=== PATIENT | female | born 1960 | race Caucasian/White ===

== ENCOUNTER → 2018-11-26 10:08 | Outpatient (CLI) | payer OTHER, SELFPAY ==
--- NOTE | 2018-11-26 | DI.MG.S_ITS ---
BILATERAL DIGITAL SCREENING MAMMOGRAM 3D/2D WITH CAD: 11/26/2018 CLINICAL: Routine screening. Comparison is made to exams dated: 09/14/2014 mammogram, 10/07/2016 mammogram, and 09/27/2015 mammogram - [facility]. The tissue of both breasts is heterogeneously dense. This may lower the sensitivity of mammography. Current study was also evaluated with a Computer Aided Detection (CAD) system. No significant masses, calcifications, or other findings are seen in either breast. There has been no significant interval change. IMPRESSION: NEGATIVE There is no mammographic evidence of malignancy. A 1 year screening mammogram is recommended. This exam was interpreted at Station ID: [id number]. NOTE: For mammograms, a report in lay terms will be sent to the patient. Approximately 15% of breast malignancies will not be visualized mammographically. In the management of a palpable breast mass, a negative mammogram must not discourage biopsy of a clinically suspicious lesion. Electronically Signed By: Anat salvador/daphney:11/30/2018 17:38:57 letter sent: Normal Exam ACR BI-RADS Category 1: Negative [id number]
== END ==
PROVIDERS: Visit Provider Nurse Practitioner Family
DX: Z12.31 Encounter for screening mammogram for malignant neoplasm of breast (principal)
CPT/HCPCS: 77063; 77067

== ENCOUNTER 2018-12-24 21:26 | Emergency (ER) | payer OTHER, SELFPAY ==
[2018-12-24 21:34] VITALS: BP 176/116; PULSE 94; RESP 18; TEMP 37.1; O2SAT 96; BMI 38.7
[2018-12-24] MEDS: KETOROLAC 60 MG/2 ML VIAL 30 MG IV (22:00)
[2018-12-24] MEDS: SODIUM CHLORIDE 0.9% 1,000 ML 1000 ML IV (22:01)
[2018-12-24 22:02] LABS: Appearance Urine UA CLEAR; Bilirubin Urine UA NEGATIVE (NEGATIVE); Color Urine UA YELLOW; Glucose Urine UA TRACE g/dL (Negative); Ketones Urine UA TRACE (NEGATIVE); Leukocyte Esterase Urine UA 1+ (NEGATIVE); Nitrite Urine UA NEGATIVE (Negative); Occult Blood Urine UA 3+ (Negative); Protein Urine UA NEGATIVE (Negative); Specific Gravity Urine UA 1.025 (1.000-1.035); Urobilinogen Urine UA 0.2 E.U./dL (0.2); pH Urine UA 5.5 (4.5-8.0)
[2018-12-24 22:14] LABS: Alanine Aminotransferase 26 IU/L (9-52); Albumin 4.3 g/dL (3.5-5.0); Albumin Globulin Ratio 1.4 (1.0-2.8); Alkaline Phosphatase 124 U/L (38-126); Aspartate Aminotransferase 19 IU/L (14-36); BUN Creatinine Ratio 22.9 (6-22); Bilirubin Total 0.6 mg/dL (0.2-1.3); Blood Urea Nitrogen 16 mg/dL (7-17); Carbon Dioxide 25 mmol/L (22-32); Chloride 103 mmol/L (98-107); Estimated Glomerular Filt Rate > 60.0 mL/min (>60); Globulin 3.1 g/dL (1.7-4.1); Glucose 231 mg/dL (80-110); HEMOLYSIS 18 (0-50); Sodium 137 mmol/L (137-145); Total Protein 7.4 g/dL (6.3-8.2)
[2018-12-24 22:31] LABS: RBC Urine 5-10/HPF (0-5/HPF); Squamous Epithelial Cell Urine 0-1 /HPF; WBC Urine 1-5/HPF (0-5/HPF)
[2018-12-24 22:32] LABS: Bacteria Urine Few (2-10); Culture Indicated Urine Specimen Cultured
--- NOTE | 2018-12-24 22:36 | DI.CT.S_ITS ---
PROCEDURE: CT KIDNEY URETER BLADDER (KUB) INDICATIONS: L flank pain, distan h/o kidney stones TECHNIQUE: Noncontrast 5 mm thick sections acquired from the diaphragms to the symphysis. 5 mm thick coronal and sagittal reformats were then performed. For radiation dose reduction, the following was used: automated exposure control, adjustment of mA and/or kV according to patient size. COMPARISON: None. FINDINGS: Image quality: Excellent. Lung bases: Lung bases are clear. Heart size is normal. Urinary system: Both kidneys are normal in size. There are bilateral 2 mm kidney stones, both nonobstructive. No right-sided hydronephrosis or perinephric fat stranding, but there is mild left hydronephrosis and hydroureter that extends inferiorly to the ureterovesicular junction where a 2 mm calculus can be seen. Both ureters appear non-dilated throughout their expected courses. Bladder wall thickness is normal; no calcified bladder stones. Other solid organs: Liver is normal in size. Gallbladder appears normal. Pancreas is normal in contours. Spleen is normal in size. No adrenal nodules. Peritoneum and bowel: Unenhanced bowel loops demonstrate normal wall thickness and caliber. No free fluid or air. Nodes and vessels: No retroperitoneal or mesenteric adenopathy by size criteria. Aorta and inferior vena cava are normal in caliber. Abdominal wall: No ventral hernias. Pelvis: No free pelvic fluid. No inguinal hernias or adenopathy. There is an unexpected finding of a filling defect within the cecum, measuring up to 4.6 cm, separate from the more normal appearing stool within the right colon. There is no associated adenopathy. Bones: No suspicious bony lesions. No vertebral body compression fractures. IMPRESSION: 1. There is an unexpected finding at the right colon, at the cecum, where a filling defect can be seen that measures up to 4.6 cm and this is separate in appearance from the more normal-appearing gas infiltrated stool within the right colon. This could represent a cecal mass. This was reported to the emergency room physician during the preliminary interpretation. The patient is 58 years of age, and please correlate clinically for whether colonoscopy has recently been performed in this patient and successfully reached the cecum. Followup colonoscopy may be warranted, followup bowel preparation and CT scanning with contrast also could be performed. The structure, if it represents a colonic malignancy, should be easily visible with contrast-enhanced CT scanning assuming bowel preparation. 2. There are nonobstructive 2 mm calculi within the collecting system of each kidney, one in each kidney. A third 2 mm calculus is present within the far distal left ureter producing mild left hydronephrosis and hydroureter. Note: These findings are concordant with the preliminary interpretation. Dictated by: Gatito Rodriguez M.D. on 12/25/2018 at 10:07 Approved by: Gatito Rodriguez M.D. on 12/25/2018 at 10:13
[2018-12-24 22:39] VITALS: BP 131/72; PULSE 80; RESP 18; O2SAT 96
[2018-12-24 22:54] LABS: Add Manual Diff / Slide Review NO; Basophils Absolute Auto 100 /uL (0-100); Basophils Percent Auto 0.9 % (0-2); Eosinophils Absolute Auto 100 /uL (0-450); Eosinophils Percent Auto 1.4 % (2-4); Hematocrit 39.6 % (36-46); Hemoglobin 13.1 g/dL (12.0-16.0); Lymphocytes Absolute Auto 2400 /uL (1100-4500); Lymphocytes Percent Auto 30.4 % (25-40); Mean Corpuscular HGB Conc 33.2 % (30-36); Mean Corpuscular Hemoglobin 28.6 PG (26-34); Mean Corpuscular Volume 86.2 fL (80-100); Monocytes Absolute Auto 700 /uL (0-900); Neutrophils Absolute Auto 4500 /uL (1500-7000); Neutrophils Percent Auto 58.3 % (50-75); Platelet Count 261 X10^3/uL (150-400); Red Cell Distribution Width 13.5 % (11.6-14.8); White Blood Cell Count 7.8 X10^3/uL (4.5-11.0)
--- NOTE | 2018-12-24 23:09 | ED.FEMALEGU ---
HPI - Female Genitourinary General Chief complaint: Urogenital-Female Stated complaint: states kidney stone Time Seen by Provider: 12/24/18 21:36 Source: patient Mode of arrival: ambulatory Limitations: no limitations History of Present Illness HPI Narrative: Patient complains of left flank pain which started abruptly this evening. She states it feels very much like her prior kidney stones. Patient states that she has not had a kidney stone pass in about 7 years, and the last time she had a CT scan, she was told there were no other stones in her kidneys waiting to come down. Patient denies vomiting. She states she is not nauseated currently. She denies fevers or dysuria, but states that she is having trouble actually getting the urine to come out, even though she feels like she needs to urinate. Patient denies any other recent illnesses. She is otherwise well. She states the pain at worst is an 8/10, and since the Toradol that she received here, the pain has come down to a 6/10. Nothing makes better or worse. Related Data Home Medications Medication Instructions Recorded Confirmed lisinopril 10 mg tablet 10 mg PO DAILY 07/26/18 07/26/18 Previous Rx's Medication Instructions Recorded adjuvant AS01B (PF), component 0.5 ml IM ONCE #0.5 ml 07/26/18 vial 1 of 2 intramuscular suspension atorvastatin 20 mg tablet 20 mg PO DAILY #90 tab 07/26/18 lisinopril 10 mg tablet 10 mg PO DAILY #90 tab 07/26/18 omeprazole 20 mg capsule,delayed 20 mg PO DAILY #90 cap 07/26/18 release sertraline 50 mg tablet See Label Instructions .ROUTE 07/26/18 .COMPLEX #240 tab zolpidem ER 6.25 mg 6.25 mg PO BEDTIME PRN #90 tab 07/26/18 tablet,extended release,multiphase metoprolol tartrate 50 mg tablet 50 mg PO BID #180 tab 08/02/18 tamsulosin [Flomax] 0.4 mg PO TID #7 cap 12/24/18 Allergies Allergy/AdvReac Type Severity Reaction Status Date / Time No Known Drug Allergies Allergy Verified 07/26/18 10:07 Review of Systems Constitutional Denies chills, Denies fever(s), Denies lethargy and Denies weakness Eyes Denies change in vision, Denies eye discharge, Denies irritation and Denies loss of vision ENT Ears, Nose, Mouth, and Throat: Denies change in voice, Denies neck pain and Denies sore throat Cardiovascular Denies chest pain, Denies irregular heart rhythm, Denies lightheadedness, Denies palpitations, Denies dyspnea, Denies dyspnea on exertion and Denies orthopnea Respiratory Denies cough, Denies dyspnea, Denies dyspnea on exertion and Denies wheezing Gastrointestinal Gastrointestinal: Denies abdominal pain, Denies change in bowel habits, Denies diarrhea, Denies nausea and Denies vomiting Comments: Left flank pain Genitourinary Denies hematuria, Denies flank pain, Denies urinary incontinence and Denies urinary urgency Musculoskeletal Denies neck pain Integumentary/Breasts Denies pruritus, Denies erythema, Denies rash and Denies wounds Neurologic Denies confusion, Denies loss of vision and Denies weakness Psychiatric Denies anxiety, Denies confusion, Denies depression, Denies homicidal ideation and Denies suicidal ideation Endocrine Denies palpitations Hematologic/Lymphatic Denies easy bruising Allergic/Immunologic Denies wheezing [facility] Medical History Anxiety (Chronic 2004) GERD (gastroesophageal reflux disease) (Chronic 2013) Hypertension (Chronic ~1997) Osteoarthritis (Chronic 2014) Schatzki's ring (Chronic 2013) Ankle pain (Resolved 2014) Chickenpox (Resolved) Colon polyps (Resolved 2017) Foot pain (Resolved 2016) Hx of endoscopy (Resolved 02/2018) Kidney stones (Resolved ~1999) Surgical History History of ankle surgery (Resolved 09/2017) Hx of appendectomy (Resolved 1978) Hx of breast biopsy (Resolved 1994) Hx of lithotripsy (Resolved) Family History Father Heart disease Hypertension Hyperlipidemia Mental health problem Stroke Mother Hypertension Hyperlipidemia Social History Smoking Status: Former smoker Tobacco: How many years used: 10 alcohol intake: current (Occasional) Family History Father Heart disease Hypertension Hyperlipidemia Mental health problem Stroke Mother Hypertension Hyperlipidemia Social History Smoking Status: Former smoker Tobacco: How many years used: 10 alcohol intake: current (Occasional) Exam Initial Vital Signs Initial Vital Signs: Vital Signs Temperature 98.7 F 12/24/18 21:34 Pulse Rate 94 H 12/24/18 21:34 Respiratory Rate 18 12/24/18 21:34 Blood Pressure 176/116 H 12/24/18 21:34 Pulse Oximetry 96 12/24/18 21:34 Const General: cooperative and well developed Nutritional Appearance: well nourished Orientation: alert, awake, oriented x3 and not confused [facility] Head: normocephalic and atraumatic Ears: external ears normal and TM's normal bilaterally Nose: external nose normal and No nasal discharge Face and sinus: sinuses nontender, face symmetric, no sinus tenderness and No dry mucous membranes Mouth: oral mucosae normal and moist mucous membranes Teeth and gingiva: dentition normal Throat: tonsils normal and uvula midline Eyes General: appearance normal, both eyes and all related structures Eyelids: eyelids normal Conjunctivae: conjunctivae normal Sclera: sclerae normal Pupils: PERRL EOM: EOM intact bilaterally Neck Neck: normal visual inspection, trachea midline, No lymphadenopathy, No midline deformity and No JVD Lymphatic: No lymphedema Chest Chest: normal inspection of the chest Resp Effort & Inspection: normal respiratory effort, able to speak in complete sentences, no respiratory distress and no use of accessory muscles Auscultation: clear to auscultation bilaterally, no rales, no rhonchi and no wheezes Cardio Rate: regular rate Rhythm: regular rhythm Heart Sounds: no click, no gallops, no murmurs and no rubs Pulses: normal peripheral pulses GI Inspection: non-distended Palpation: soft, no hepatosplenomegaly, No guarding, No pulsatile mass and No tender Auscultation: normal bowel sounds Back/Spine/Pelvis Back: CVA tenderness ( mild, left) Cervical Spine: cervical ROM normal and No pain with cervical ROM Thoracic/Lumbar Spine: thoracic and lumbar spine normal to inspection Skin General: no rashes or lesions noted, No jaundice and No petechiae Neuro General: alert, oriented x3, gait normal and no focal motor deficits Speech: speech normal Extrem General: full ROM, no clubbing, cyanosis or edema, no pedal edema and no calf tenderness Psych Appearance: well kempt Mental Status: mental status grossly normal Attitude: cooperative Thought Content: normal and suicidality Judgment: judgment good Course Course Narrative: patient was given a L of IV fluid in the emergency department, as well as a dose of Toradol. She declined further pain medication. She was sent for a noncontrast CT scan of the abdomen and pelvis, which did show a urinary calculus on the left. Findings have been discussed with the patient and her . Home management has also been discussed, as well as the usual indications for return. Orders Ordered: Discontinued Medications Sodium Chloride (Normal Saline 0.9%) 1,000 mls @ 1,000 mls/hr IV BOLUS ONE Stop: 12/24/18 22:57 Last Infusion: 12/25/18 00:39 Dose: 0 mls/hr Infusion: 12/24/18 23:14 Dose: 1,000 mls/hr Infusion: 12/24/18 22:50 Dose: 0 mls/hr Admin: 12/24/18 22:01 Dose: 1,000 mls/hr Ketorolac Tromethamine (Toradol) 30 mg IV NOW ONE Stop: 12/24/18 21:59 Last Admin: 12/24/18 22:00 Dose: 30 mg Vital Signs - 8 hr 12/24/18 21:34 12/24/18 22:39 Temperature 98.7 F Pulse Rate 94 H 80 Respiratory Rate 18 18 Blood Pressure 176/116 H Blood Pressure [Right Arm] 131/72 Pulse Oximetry 96 96 MDM - Female Genitourinary Medical Records Attestation: I reviewed the patient's medical records. Lab Data Attestation: I reviewed the patient's lab results. Result diagrams: 12/24/18 22:26 12/24/18 22:01 Lab Results 12/24/18 12/24/18 12/24/18 Range/Units 21:41 22:01 22:26 WBC 7.8 (4.5-11.0) X10^3/uL RBC 4.60 (4.0-5.2) X10^6/uL Hgb 13.1 (12.0-16.0) g/dL Hct 39.6 (36-46) % MCV 86.2 (80-100) fL MCH 28.6 (26-34) PG MCHC 33.2 (30-36) % RDW 13.5 (11.6-14.8) % Plt Count 261 (150-400) X10^3/uL Neut % (Auto) 58.3 (50-75) % Lymph % (Auto) 30.4 (25-40) % [place] % (Auto) 9.0 (3-14) % Eos % (Auto) 1.4 L (2-4) % Baso % (Auto) 0.9 (0-2) % Neut # (Auto) 4500 (4269-4596) /uL Lymph # (Auto) 2400 (5708-8242) /uL [place] # (Auto) 700 (0-900) /uL Eos # (Auto) 100 (0-450) /uL Baso # (Auto) 100 (0-100) /uL Sodium 137 (137-145) mmol/L Potassium 4.0 (3.4-5.1) mmol/L Chloride 103 (98-107) mmol/L Carbon Dioxide 25 (22-32) mmol/L BUN 16 (7-17) mg/dL Creatinine 0.70 (0.52-1.04) mg/dL Estimated GFR > 60.0 (>60) mL/min BUN/Creatinine Ratio 22.9 H (6-22) Glucose 231 H (80-110) mg/dL Calcium 10.0 (8.4-10.2) mg/dL Total Bilirubin 0.6 (0.2-1.3) mg/dL AST 19 (14-36) IU/L ALT 26 (9-52) IU/L Alkaline Phosphatase 124 (38-126) U/L Total Protein 7.4 (6.3-8.2) g/dL Albumin 4.3 (3.5-5.0) g/dL Globulin 3.1 (1.7-4.1) g/dL Albumin/Globulin Ratio 1.4 (1.0-2.8) Urine Color Yellow Urine Appearance Clear Urine pH 5.5 (4.5-8.0) Ur Specific [place] 1.025 (1.000-1.035) Urine Protein Negative (Negative) Urine Glucose (UA) Trace H (Negative) g/dL Urine Ketones Trace H (NEGATIVE) Urine Occult Blood 3+ H (Negative) Urine Nitrate Negative (Negative) Urine Bilirubin Negative (NEGATIVE) Urine Urobilinogen 0.2 (0.2) E.U./dL Ur Leukocyte Esterase 1+ H (NEGATIVE) Urine RBC 5-10/hpf H (0-5/HPF) Urine WBC 1-5/hpf (0-5/HPF) Ur Squamous Epith Cells 0-1 /hpf Urine Bacteria Few (2-10) H (None) Ur Culture Indicated? Specimen cultured Micro UA Comment * Imaging Data CT scan - abdomen: Radiologist's impression: [address] [id number] [address] Scan Report Signed Patient: Maria M Deal [facility]#: [id number] : 8Acct:[id number] Age/Sex: 58 / FDate of Service: 12/24/18 Loc: ED Accession Number: [id number] Procedure: CT kidney ureter bladder (KUB) Ordering Provider: Yareli Guerrero MD PROCEDURE: CT KIDNEY URETER BLADDER (KUB) INDICATIONS: L flank pain, distan h/o kidney stones TECHNIQUE: Noncontrast 5 mm thick sections acquired from the diaphragms to the symphysis. 5 mm thick coronal and sagittal reformats were then performed. For radiation dose reduction, the following was used: automated exposure control, adjustment of mA and/or kV according to patient size. COMPARISON: None. FINDINGS: Image quality: Excellent. Lung bases: Lung bases are clear. Heart size is normal. Urinary system: Both kidneys are normal in size. There are bilateral 2 mm kidney stones, both nonobstructive. No right-sided hydronephrosis or perinephric fat stranding, but there is mild left hydronephrosis and hydroureter that extends inferiorly to the ureterovesicular junction where a 2 mm calculus can be seen. Both ureters appear non-dilated throughout their expected courses. Bladder wall thickness is normal; no calcified bladder stones. Other solid organs: Liver is normal in size. Gallbladder appears normal. Pancreas is normal in contours. Spleen is normal in size. No adrenal nodules. Peritoneum and bowel: Unenhanced bowel loops demonstrate normal wall thickness and caliber. No free fluid or air. Nodes and vessels: No retroperitoneal or mesenteric adenopathy by size criteria. Aorta and inferior vena cava are normal in caliber. Abdominal wall: No ventral hernias. Pelvis: No free pelvic fluid. No inguinal hernias or adenopathy. There is an unexpected finding of a filling defect within the cecum, measuring up to 4.6 cm, separate from the more normal appearing stool within the right colon. There is no associated adenopathy. Bones: No suspicious bony lesions. No vertebral body compression fractures. IMPRESSION: 1. There is an unexpected finding at the right colon, at the cecum, where a filling defect can be seen that measures up to 4.6 cm and this is separate in appearance from the more normal-appearing gas infiltrated stool within the right colon. This could represent a cecal mass. This was reported to the emergency room physician during the preliminary interpretation. The patient is 58 years of age, and please correlate clinically for whether colonoscopy has recently been performed in this patient and successfully reached the cecum. Followup colonoscopy may be warranted, followup bowel preparation and CT scanning with contrast also could be performed. The structure, if it represents a colonic malignancy, should be easily visible with contrast-enhanced CT scanning assuming bowel preparation. 2. There are nonobstructive 2 mm calculi within the collecting system of each kidney, one in each kidney. A third 2 mm calculus is present within the far distal left ureter producing mild left hydronephrosis and hydroureter. Note: These findings are concordant with the preliminary interpretation. Dictated by: Gatito Rodriguez M.D. on 12/25/2018 at 10:07 Approved by: Gatito Rodriguez M.D. on 12/25/2018 at 10:13 Discharge Plan Departure Patient Disposition: Home Clinical Impression: Kidney stone Discharge Date/Time: 12/25/18 00:57 Interventions: ED Discharge Assessment Last Done: 12/25/18 00:57 Instructions: DI for Kidney Stones Activity Restrictions/Additional Instructions: Your CT scan showed a kidney stone on the left. This is near the junction of the ureter and bladder, and should be passing into the bladder soon. You may take the medications, as needed. Please continue to drink plenty of fluids. Prescriptions: New tamsulosin [Flomax] 0.4 mg capsule 0.4 mg PO TID Qty: 7 RF: 0 No Action lisinopril 10 mg tablet 10 mg PO DAILY RF: 0 adjuvant AS01B (PF)vial 1 of 2 [Shingrix Adjuvant Component-PF] suspension 0.5 ml IM ONCE Qty: 0.5 RF: 0 atorvastatin 20 mg tablet 20 mg PO DAILY Qty: 90 RF: 1 lisinopril 10 mg tablet 10 mg PO DAILY Qty: 90 RF: 1 sertraline 50 mg tablet See Label Instructions .ROUTE .COMPLEX Qty: 240 RF: 1 zolpidem 6.25 mg tablet,ext release multiphase 6.25 mg PO BEDTIME PRN (Reason: insomnia) Qty: 90 RF: 0 omeprazole 20 mg capsule,delayed release(DR/EC) 20 mg PO DAILY Qty: 90 RF: 1 metoprolol tartrate 50 mg tablet 50 mg PO BID Qty: 180 RF: 1 Referrals: Cece Parker ARNP [Primary Care Provider] -
--- NOTE | 2018-12-24 23:12 | ED_ITS ---
HPI - Female Genitourinary General Chief complaint: Urogenital-Female Stated complaint: states kidney stone Time Seen by Provider: 12/24/18 21:36 Source: patient Mode of arrival: ambulatory Limitations: no limitations History of Present Illness HPI Narrative: Patient complains of left flank pain which started abruptly this evening. She states it feels very much like her prior kidney stones. Patient states that she has not had a kidney stone pass in about 7 years, and the last time she had a CT scan, she was told there were no other stones in her kidneys waiting to come down. Patient denies vomiting. She states she is not nauseated currently. She denies fevers or dysuria, but states that she is having trouble actually getting the urine to come out, even though she feels like she needs to urinate. Patient denies any other recent illnesses. She is otherwise well. She states the pain at worst is an 8/10, and since the Toradol that she received here, the pain has come down to a 6/10. Nothing makes better or worse. Related Data Home Medications Medication Instructions Recorded Confirmed lisinopril 10 mg tablet 10 mg PO DAILY 07/26/18 07/26/18 Previous Rx's Medication Instructions Recorded adjuvant AS01B (PF), component 0.5 ml IM ONCE #0.5 ml 07/26/18 vial 1 of 2 intramuscular suspension atorvastatin 20 mg tablet 20 mg PO DAILY #90 tab 07/26/18 lisinopril 10 mg tablet 10 mg PO DAILY #90 tab 07/26/18 omeprazole 20 mg capsule,delayed 20 mg PO DAILY #90 cap 07/26/18 release sertraline 50 mg tablet See Label Instructions .ROUTE 07/26/18 .COMPLEX #240 tab zolpidem ER 6.25 mg 6.25 mg PO BEDTIME PRN #90 tab 07/26/18 tablet,extended release,multiphase metoprolol tartrate 50 mg tablet 50 mg PO BID #180 tab 08/02/18 tamsulosin [Flomax] 0.4 mg PO TID #7 cap 12/24/18 Allergies Allergy/AdvReac Type Severity Reaction Status Date / Time No Known Drug Allergies Allergy Verified 07/26/18 10:07 Review of Systems Constitutional Denies chills, Denies fever(s), Denies lethargy and Denies weakness Eyes Denies change in vision, Denies eye discharge, Denies irritation and Denies loss of vision ENT Ears, Nose, Mouth, and Throat: Denies change in voice, Denies neck pain and Denies sore throat Cardiovascular Denies chest pain, Denies irregular heart rhythm, Denies lightheadedness, Denies palpitations, Denies dyspnea, Denies dyspnea on exertion and Denies orthopnea Respiratory Denies cough, Denies dyspnea, Denies dyspnea on exertion and Denies wheezing Gastrointestinal Gastrointestinal: Denies abdominal pain, Denies change in bowel habits, Denies diarrhea, Denies nausea and Denies vomiting Comments: Left flank pain Genitourinary Denies hematuria, Denies flank pain, Denies urinary incontinence and Denies urinary urgency Musculoskeletal Denies neck pain Integumentary/Breasts Denies pruritus, Denies erythema, Denies rash and Denies wounds Neurologic Denies confusion, Denies loss of vision and Denies weakness Psychiatric Denies anxiety, Denies confusion, Denies depression, Denies homicidal ideation and Denies suicidal ideation Endocrine Denies palpitations Hematologic/Lymphatic Denies easy bruising Allergic/Immunologic Denies wheezing [facility] Medical History Anxiety (Chronic 2004) GERD (gastroesophageal reflux disease) (Chronic 2013) Hypertension (Chronic ~1997) Osteoarthritis (Chronic 2014) Schatzki's ring (Chronic 2013) Ankle pain (Resolved 2014) Chickenpox (Resolved) Colon polyps (Resolved 2017) Foot pain (Resolved 2016) Hx of endoscopy (Resolved 02/2018) Kidney stones (Resolved ~1999) Surgical History History of ankle surgery (Resolved 09/2017) Hx of appendectomy (Resolved 1978) Hx of breast biopsy (Resolved 1994) Hx of lithotripsy (Resolved) Family History Father Heart disease Hypertension Hyperlipidemia Mental health problem Stroke Mother Hypertension Hyperlipidemia Social History Smoking Status: Former smoker Tobacco: How many years used: 10 alcohol intake: current (Occasional) Family History Father Heart disease Hypertension Hyperlipidemia Mental health problem Stroke Mother Hypertension Hyperlipidemia Social History Smoking Status: Former smoker Tobacco: How many years used: 10 alcohol intake: current (Occasional) Exam Initial Vital Signs Initial Vital Signs: Vital Signs Temperature 98.7 F 12/24/18 21:34 Pulse Rate 94 H 12/24/18 21:34 Respiratory Rate 18 12/24/18 21:34 Blood Pressure 176/116 H 12/24/18 21:34 Pulse Oximetry 96 12/24/18 21:34 Const General: cooperative and well developed Nutritional Appearance: well nourished Orientation: alert, awake, oriented x3 and not confused [facility] Head: normocephalic and atraumatic Ears: external ears normal and TM's normal bilaterally Nose: external nose normal and No nasal discharge Face and sinus: sinuses nontender, face symmetric, no sinus tenderness and No dry mucous membranes Mouth: oral mucosae normal and moist mucous membranes Teeth and gingiva: dentition normal Throat: tonsils normal and uvula midline Eyes General: appearance normal, both eyes and all related structures Eyelids: eyelids normal Conjunctivae: conjunctivae normal Sclera: sclerae normal Pupils: PERRL EOM: EOM intact bilaterally Neck Neck: normal visual inspection, trachea midline, No lymphadenopathy, No midline deformity and No JVD Lymphatic: No lymphedema Chest Chest: normal inspection of the chest Resp Effort & Inspection: normal respiratory effort, able to speak in complete sentences, no respiratory distress and no use of accessory muscles Auscultation: clear to auscultation bilaterally, no rales, no rhonchi and no wheezes Cardio Rate: regular rate Rhythm: regular rhythm Heart Sounds: no click, no gallops, no murmurs and no rubs Pulses: normal peripheral pulses GI Inspection: non-distended Palpation: soft, no hepatosplenomegaly, No guarding, No pulsatile mass and No tender Auscultation: normal bowel sounds Back/Spine/Pelvis Back: CVA tenderness ( mild, left) Cervical Spine: cervical ROM normal and No pain with cervical ROM Thoracic/Lumbar Spine: thoracic and lumbar spine normal to inspection Skin General: no rashes or lesions noted, No jaundice and No petechiae Neuro General: alert, oriented x3, gait normal and no focal motor deficits Speech: speech normal Extrem General: full ROM, no clubbing, cyanosis or edema, no pedal edema and no calf tenderness Psych Appearance: well kempt Mental Status: mental status grossly normal Attitude: cooperative Thought Content: normal and suicidality Judgment: judgment good Course Course Narrative: patient was given a L of IV fluid in the emergency department , as well as a dose of Toradol. She declined further pain medication. She was sent for a noncontrast CT scan of the abdomen and pelvis, which did show a urinary calculus on the left. Findings have been discussed with the patient and her . Home management has also been discussed, as well as the usual indications for return. Orders Ordered: Discontinued Medications Sodium Chloride (Normal Saline 0.9%) 1,000 mls @ 1,000 mls/hr IV BOLUS ONE Stop: 12/24/18 22:57 Last Infusion: 12/25/18 00:39 Dose: 0 mls/hr Infusion: 12/24/18 23:14 Dose: 1,000 mls/hr Infusion: 12/24/18 22:50 Dose: 0 mls/hr Admin: 12/24/18 22:01 Dose: 1,000 mls/hr Ketorolac Tromethamine (Toradol) 30 mg IV NOW ONE Stop: 12/24/18 21:59 Last Admin: 12/24/18 22:00 Dose: 30 mg Vital Signs - 8 hr 12/24/18 21:34 12/24/18 22:39 Temperature 98.7 F Pulse Rate 94 H 80 Respiratory Rate 18 18 Blood Pressure 176/116 H Blood Pressure [Right Arm] 131/72 Pulse Oximetry 96 96 MDM - Female Genitourinary Medical Records Attestation: I reviewed the patient's medical records. Lab Data Attestation: I reviewed the patient's lab results. Result diagrams: 12/24/18 22:26 12/24/18 22:01 Lab Results 12/24/18 12/24/18 12/24/18 Range/Units 21:41 22:01 22:26 WBC 7.8 (4.5-11.0) X10^3/uL RBC 4.60 (4.0-5.2) X10^6/uL Hgb 13.1 (12.0-16.0) g/dL Hct 39.6 (36-46) % MCV 86.2 (80-100) fL MCH 28.6 (26-34) PG MCHC 33.2 (30-36) % RDW 13.5 (11.6-14.8) % Plt Count 261 (150-400) X10^3/uL Neut % (Auto) 58.3 (50-75) % Lymph % (Auto) 30.4 (25-40) % Granite % (Auto) 9.0 (3-14) % Eos % (Auto) 1.4 L (2-4) % Baso % (Auto) 0.9 (0-2) % Neut # (Auto) 4500 (9986-0389) /uL Lymph # (Auto) 2400 (9418-2620) /uL Granite # (Auto) 700 (0-900) /uL Eos # (Auto) 100 (0-450) /uL Baso # (Auto) 100 (0-100) /uL Sodium 137 (137-145) mmol/L Potassium 4.0 (3.4-5.1) mmol/L Chloride 103 (98-107) mmol/L Carbon Dioxide 25 (22-32) mmol/L BUN 16 (7-17) mg/dL Creatinine 0.70 (0.52-1.04) mg/dL Estimated GFR > 60.0 (>60) mL/min BUN/Creatinine Ratio 22.9 H (6-22) Glucose 231 H (80-110) mg/dL Calcium 10.0 (8.4-10.2) mg/dL Total Bilirubin 0.6 (0.2-1.3) mg/dL AST 19 (14-36) IU/L ALT 26 (9-52) IU/L Alkaline Phosphatase 124 (38-126) U/L Total Protein 7.4 (6.3-8.2) g/dL Albumin 4.3 (3.5-5.0) g/dL Globulin 3.1 (1.7-4.1) g/dL Albumin/Globulin Ratio 1.4 (1.0-2.8) Urine Color Yellow Urine Appearance Clear Urine pH 5.5 (4.5-8.0) Ur Specific [place] 1.025 (1.000-1.035) Urine Protein Negative (Negative) Urine Glucose (UA) Trace H (Negative) g/dL Urine Ketones Trace H (NEGATIVE) Urine Occult Blood 3+ H (Negative) Urine Nitrate Negative (Negative) Urine Bilirubin Negative (NEGATIVE) Urine Urobilinogen 0.2 (0.2) E.U./dL Ur Leukocyte Esterase 1+ H (NEGATIVE) Urine RBC 5-10/hpf H (0-5/HPF) Urine WBC 1-5/hpf (0-5/HPF) Ur Squamous Epith Cells 0-1 /hpf Urine Bacteria Few (2-10) H (None) Ur Culture Indicated? Specimen cultured Micro UA Comment * Imaging Data CT scan - abdomen: Radiologist's impression: [address] [address] [address] Scan Report Signed Patient: Maria M Deal [facility]#: [id number] : 8Acct:[id number] Age/Sex: 58 / FDate of Service: 12/24/18 Loc: ED Accession Number: [id number] Procedure: CT kidney ureter bladder (KUB) Ordering Provider: Yareli Guerrero MD PROCEDURE: CT KIDNEY URETER BLADDER (KUB) INDICATIONS: L flank pain, distan h/o kidney stones TECHNIQUE: Noncontrast 5 mm thick sections acquired from the diaphragms to the symphysis. 5 mm thick coronal and sagittal reformats were then performed. For radiation dose reduction, the following was used: automated exposure control, adjustment of mA and/or kV according to patient size. COMPARISON: None. FINDINGS: Image quality: Excellent. Lung bases: Lung bases are clear. Heart size is normal. Urinary system: Both kidneys are normal in size. There are bilateral 2 mm kidney stones, both nonobstructive. No right-sided hydronephrosis or perinephric fat stranding, but there is mild left hydronephrosis and hydroureter that extends inferiorly to the ureterovesicular junction where a 2 mm calculus can be seen. Both ureters appear non-dilated throughout their expected courses. Bladder wall thickness is normal ; no calcified bladder stones. Other solid organs: Liver is normal in size. Gallbladder appears normal. Pancreas is normal in contours. Spleen is normal in size. No adrenal nodules. Peritoneum and bowel: Unenhanced bowel loops demonstrate normal wall thickness and caliber. No free fluid or air. Nodes and vessels: No retroperitoneal or mesenteric adenopathy by size criteria. Aorta and inferior vena cava are normal in caliber. Abdominal wall: No ventral hernias. Pelvis: No free pelvic fluid. No inguinal hernias or adenopathy. There is an unexpected finding of a filling defect within the cecum, measuring up to 4.6 cm , separate from the more normal appearing stool within the right colon. There is no associated adenopathy. Bones: No suspicious bony lesions. No vertebral body compression fractures. IMPRESSION: 1. There is an unexpected finding at the right colon, at the cecum, where a filling defect can be seen that measures up to 4.6 cm and this is separate in appearance from the more normal-appearing gas infiltrated stool within the right colon. This could represent a cecal mass. This was reported to the emergency room physician during the preliminary interpretation. The patient is 58 years of age, and please correlate clinically for whether colonoscopy has recently been performed in this patient and successfully reached the cecum. Followup colonoscopy may be warranted, followup bowel preparation and CT scanning with contrast also could be performed. The structure, if it represents a colonic malignancy, should be easily visible with contrast-enhanced CT scanning assuming bowel preparation. 2. There are nonobstructive 2 mm calculi within the collecting system of each kidney, one in each kidney. A third 2 mm calculus is present within the far distal left ureter producing mild left hydronephrosis and hydroureter. Note: These findings are concordant with the preliminary interpretation. Dictated by: Gatito Rodriguez M.D. on 12/25/2018 at 10:07 Approved by: Gatito Rodriguez M.D. on 12/25/2018 at 10:13 Discharge Plan Departure Patient Disposition: Home Clinical Impression: Kidney stone Discharge Date/Time: 12/25/18 00:57 Interventions: ED Discharge Assessment Last Done: 12/25/18 00:57 Instructions: DI for Kidney Stones Activity Restrictions/Additional Instructions: Your CT scan showed a kidney stone on the left. This is near the junction of the ureter and bladder, and should be passing into the bladder soon. You may take the medications, as needed. Please continue to drink plenty of fluids. Prescriptions: New tamsulosin [Flomax] 0.4 mg capsule 0.4 mg PO TID Qty: 7 RF: 0 No Action lisinopril 10 mg tablet 10 mg PO DAILY RF: 0 adjuvant AS01B (PF)vial 1 of 2 [Shingrix Adjuvant Component-PF] suspension 0.5 ml IM ONCE Qty: 0.5 RF: 0 atorvastatin 20 mg tablet 20 mg PO DAILY Qty: 90 RF: 1 lisinopril 10 mg tablet 10 mg PO DAILY Qty: 90 RF: 1 sertraline 50 mg tablet See Label Instructions .ROUTE .COMPLEX Qty: 240 RF: 1 zolpidem 6.25 mg tablet,ext release multiphase 6.25 mg PO BEDTIME PRN (Reason: insomnia) Qty: 90 RF: 0 omeprazole 20 mg capsule,delayed release(DR/EC) 20 mg PO DAILY Qty: 90 RF: 1 metoprolol tartrate 50 mg tablet 50 mg PO BID Qty: 180 RF: 1 Referrals: Cece Parker ARNP [Primary Care Provider] -
[2018-12-25 00:57] VITALS: BP 149/94; PULSE 85; RESP 18; O2SAT 94
== END 2018-12-25 00:57 | disposition home or self-care (01) ==
PROVIDERS: Emergency Provider Emergency Medicine; PCP Nurse Practitioner Family
DX: N20.0 Calculus of kidney (principal)
CPT/HCPCS: 36591; 74176; 80053; 81001; 85025; 87086; 96361; 96374; 99283; 99284; J1885

== ENCOUNTER → 2019-01-07 10:48 | Outpatient (CLI) | payer OTHER, SELFPAY ==
[2019-01-07 11:18] LABS: Add Manual Diff / Slide Review NO; Basophils Absolute Auto 100 /uL (0-100); Basophils Percent Auto 1.3 % (0-2); Eosinophils Absolute Auto 100 /uL (0-450); Hematocrit 42.4 % (36-46); Hemoglobin 13.9 g/dL (12.0-16.0); Lymphocytes Absolute Auto 2300 /uL (1100-4500); Lymphocytes Percent Auto 32.6 % (25-40); Mean Corpuscular HGB Conc 32.9 % (30-36); Mean Corpuscular Hemoglobin 28.8 PG (26-34); Mean Corpuscular Volume 87.6 fL (80-100); Monocytes Absolute Auto 600 /uL (0-900); Monocytes Percent Auto 7.8 % (3-14); Neutrophils Absolute Auto 4000 /uL (1500-7000); Neutrophils Percent Auto 56.3 % (50-75); Platelet Count 297 X10^3/uL (150-400); Red Blood Cell Count 4.84 X10^6/uL (4.0-5.2); Red Cell Distribution Width 13.3 % (11.6-14.8); White Blood Cell Count 7.1 X10^3/uL (4.5-11.0)
== END ==
PROVIDERS: PCP Nurse Practitioner Family; Visit Provider Nurse Practitioner Family
DX: N20.0 Calculus of kidney (principal); I10 Essential (primary) hypertension; E78.5 Hyperlipidemia, unspecified
CPT/HCPCS: 36415; 85025

== ENCOUNTER → 2019-01-10 12:57 | Outpatient (CLI) | payer OTHER, SELFPAY ==
--- NOTE | 2019-01-10 | DI.CT.S_ITS ---
PROCEDURE: CT ABDOMEN PELVIS W CON INDICATIONS: CECAL MASS TECHNIQUE: After the administration of oral and intravenous contrast, 5 mm thick sections acquired from the diaphragms to the symphysis. 5 mm thick coronal and sagittal reformats were performed. For radiation dose reduction, the following was used: automated exposure control, adjustment of mA and/or kV according to patient size. COMPARISON: [facility], CT, CT KIDNEY URETER BLADDER (KUB), 12/24/2018, 22:31. FINDINGS: Image quality: Excellent. ABDOMEN: Lung bases: Lung bases are clear. Heart size is normal. A small hiatal hernia is incidentally noted. Solid organs: Liver is normal in size and enhancement. Patchy fatty liver infiltration can be seen. Gallbladder wall does not appear thickened. Biliary system is non-dilated. Pancreas enhances normally. Spleen is normal in size and enhancement. No adrenal nodules. A nonenhancing exophytic renal cyst is seen on the left laterally measuring water density and 3.2 cm. The kidneys demonstrate normal size. No hydronephrosis. Peritoneum and bowel: The prior examination, a cecal mass is described. This does not definitely seen on the current study. No colonic masses are seen. No dilated loops of small bowel are seen. No free air or significant air-fluid can be seen. Nodes and vessels: No retroperitoneal or mesenteric adenopathy. Aorta and inferior vena cava are normal in caliber. Miscellaneous: No ventral hernias. PELVIS: Genitourinary: Bladder wall thickness is normal. Miscellaneous: No inguinal adenopathy. Mild fat-containing inguinal hernias are seen, right more prominent than left. Bones: No suspicious bony lesions. No vertebral body compression fractures. S-shaped scoliotic curvature is seen. Degenerative changes are seen, which are most prominent involving the lower lumbar spine. IMPRESSION: No cecal mass can be seen on these images. It may be artifactual on the prior study, potentially related to stool. If this patient has not had a recent colonoscopy, please consider colonoscopy for further evaluation. Incidental note is made of: Hiatal hernia Simple left renal cyst Mild bilateral fat-containing inguinal hernias Dictated by: Todd Eduardo M.D. on 01/10/2019 at 15:23 Approved by: Todd Eduardo M.D. on 01/10/2019 at 15:28
== END ==
PROVIDERS: PCP Nurse Practitioner Family; Visit Provider Family Medicine
DX: K63.9 Disease of intestine, unspecified (principal); K44.9 Diaphragmatic hernia without obstruction or gangrene; N28.1 Cyst of kidney, acquired; K40.20 Bilateral inguinal hernia, without obstruction or gangrene, not specified as recurrent
CPT/HCPCS: 74177; Q9967

== ENCOUNTER → 2019-01-24 08:08 | Outpatient (CLI) | payer OTHER, SELFPAY ==
[2019-01-24 08:59] LABS: Hemoglobin A1C% w Est Avg Glu 7.5 % (4.0-6.0)
[2019-01-24 09:25] LABS: Glucose 174 mg/dL (80-110)
[2019-01-25 14:33] LABS: Insulin Level Total 33.1 uIU/mL (2.0-19.6)
== END ==
PROVIDERS: Family Provider Family Medicine; PCP Nurse Practitioner Family; Visit Provider Naturopath
DX: E11.9 Type 2 diabetes mellitus without complications (principal)
CPT/HCPCS: 36415; 82947; 83036; 83525

== ENCOUNTER → 2019-05-03 08:41 | Outpatient (CLI) | payer OTHER, SELFPAY ==
[2019-05-03 09:57] LABS: Hemoglobin A1C% w Est Avg Glu 5.8 % (4.0-6.0)
[2019-05-03 10:14] LABS: Cholesterol 187 mg/dL (140-199); Glucose 126 mg/dL (80-110); HDL Cholesterol 36 mg/dL (40-60); LDL Cholesterol Calculated 112 mg/dL (<100); Triglycerides 193 mg/dL (35-150)
== END ==
PROVIDERS: PCP Family Medicine; Visit Provider Naturopath
DX: E11.9 Type 2 diabetes mellitus without complications (principal)
CPT/HCPCS: 36415; 80061; 82947; 83036

== ENCOUNTER → 2019-08-23 08:19 | Outpatient (CLI) | payer OTHER, SELFPAY ==
[2019-08-23 09:59] LABS: Hemoglobin A1C% w Est Avg Glu 5.7 % (4.0-6.0)
[2019-08-23 10:11] LABS: Cholesterol 191 mg/dL (140-199); Glucose 132 mg/dL (80-110); HDL Cholesterol 33 mg/dL (40-60); LDL Cholesterol Calculated 116 mg/dL (<100); Triglycerides 208 mg/dL (35-150)
== END ==
PROVIDERS: PCP Family Medicine; Visit Provider Naturopath
DX: E11.9 Type 2 diabetes mellitus without complications (principal); E78.49 Other hyperlipidemia
CPT/HCPCS: 36415; 80061; 82947; 83036

== ENCOUNTER → 2019-11-28 15:35 | Outpatient (CLI) | payer OTHER, SELFPAY ==
--- NOTE | 2019-11-28 | DI.MG.S_ITS ---
BILATERAL DIGITAL SCREENING MAMMOGRAM 3D/2D WITH CAD: 11/28/2019 CLINICAL: Routine screening. Comparison is made to exams dated: 11/26/2018 mammogram - [facility], 10/07/2016 mammogram, and 09/27/2015 mammogram - [facility]. There are scattered fibroglandular elements in both breasts. Current study was also evaluated with a Computer Aided Detection (CAD) system. No significant masses, calcifications, or other findings are seen in either breast. There has been no significant interval change. IMPRESSION: NEGATIVE There is no mammographic evidence of malignancy. A 1 year screening mammogram is recommended. This exam was interpreted at Station ID: [id number]. NOTE: For mammograms, a report in lay terms will be sent to the patient. Approximately 15% of breast malignancies will not be visualized mammographically. In the management of a palpable breast mass, a negative mammogram must not discourage biopsy of a clinically suspicious lesion. Electronically Signed By: Anat salvador/daphney:11/29/2019 14:52:02 letter sent: Normal Exam ACR BI-RADS Category 1: Negative 3341F
== END ==
PROVIDERS: PCP Family Medicine; Visit Provider Family Medicine
DX: Z12.31 Encounter for screening mammogram for malignant neoplasm of breast (principal)
CPT/HCPCS: 77063; 77067

== ENCOUNTER → 2020-01-31 09:55 | Outpatient (CLI) | payer OTHER, SELFPAY ==
[2020-01-31 11:10] LABS: Creatinine Urine Random 143.6 mg/dL
[2020-01-31 11:16] LABS: Microalbumi Creatinin Ratio Ur 4.1 ug/mg CR (<30); Microalbumin Urine Random < 0.6 mg/dL (0-1.6)
[2020-01-31 11:52] LABS: Alanine Aminotransferase 29 IU/L (<35); Albumin 4.6 g/dL (3.5-5.0); Albumin Globulin Ratio 1.4 (1.0-2.8); Alkaline Phosphatase 97 U/L (38-126); Aspartate Aminotransferase 25 IU/L (14-36); Bilirubin Total 1.1 mg/dL (0.2-1.3); Blood Urea Nitrogen 17 mg/dL (7-17); Calcium 10.6 mg/dL (8.4-10.2); Carbon Dioxide 27 mmol/L (22-32); Chloride 102 mmol/L (98-107); Estimated Glomerular Filt Rate > 60.0 mL/min (>60); Globulin 3.2 g/dL (1.7-4.1); Glucose 110 mg/dL (80-110); HEMOLYSIS < 15 (0-50); Potassium 4.8 mmol/L (3.4-5.1); Sodium 139 mmol/L (137-145); Total Protein 7.8 g/dL (6.3-8.2)
== END ==
PROVIDERS: PCP Family Medicine; Referring Provider Family Medicine; Visit Provider Family Medicine
DX: E11.9 Type 2 diabetes mellitus without complications (principal)
CPT/HCPCS: 36415; 80053; 82043; 82570; 83036

== ENCOUNTER → 2020-06-29 08:41 | Outpatient (CLI) | payer OTHER, SELFPAY ==
[2020-06-29 10:46] LABS: Add Manual Diff / Slide Review NO; Basophils Absolute Auto 100 /uL (0-100); Basophils Percent Auto 0.9 % (0-2); Eosinophils Absolute Auto 100 /uL (0-450); Eosinophils Percent Auto 1.6 % (2-4); Hematocrit 40.6 % (36-46); Hemoglobin 13.6 g/dL (12.0-16.0); Lymphocytes Absolute Auto 2400 /uL (1100-4500); Lymphocytes Percent Auto 34.5 % (25-40); Mean Corpuscular HGB Conc 33.4 % (30-36); Mean Corpuscular Hemoglobin 29.5 PG (26-34); Mean Corpuscular Volume 88.3 fL (80-100); Monocytes Absolute Auto 500 /uL (0-900); Monocytes Percent Auto 7.7 % (3-14); Neutrophils Absolute Auto 3800 /uL (1500-7000); Neutrophils Percent Auto 55.3 % (50-75); Platelet Count 274 X10^3/uL (150-400); Red Cell Distribution Width 13.2 % (11.6-14.8); White Blood Cell Count 6.9 X10^3/uL (4.5-11.0)
[2020-06-29 11:08] LABS: Alanine Aminotransferase 36 IU/L (<35); Albumin 4.4 g/dL (3.5-5.0); Albumin Globulin Ratio 1.4 (1.0-2.8); Alkaline Phosphatase 101 U/L (38-126); Aspartate Aminotransferase 33 IU/L (14-36); Bilirubin Total 1.2 mg/dL (0.2-1.3); Blood Urea Nitrogen 14 mg/dL (7-17); Calcium 10.6 mg/dL (8.4-10.2); Carbon Dioxide 26 mmol/L (22-32); Chloride 106 mmol/L (98-107); Cholesterol 169 mg/dL (140-199); Estimated Glomerular Filt Rate > 60.0 mL/min (>60); Globulin 3.1 g/dL (1.7-4.1); Glucose 111 mg/dL (80-110); HDL Cholesterol 36 mg/dL (40-60); HEMOLYSIS < 15 (0-50); LDL Cholesterol Calculated 87 mg/dL (<100); Potassium 4.3 mmol/L (3.4-5.1); Sodium 140 mmol/L (137-145); Total Protein 7.5 g/dL (6.3-8.2); Triglycerides 232 mg/dL (35-150)
[2020-06-29 11:38] LABS: Ferritin 72 ng/mL (11-264)
[2020-06-29 12:46] LABS: Hemoglobin A1C% w Est Avg Glu 6.1 % (4.0-6.0)
== END ==
PROVIDERS: Naturopath; PCP Family Medicine; Referring Provider Family Medicine; Visit Provider Family Medicine
DX: Z00.00 Encounter for general adult medical examination without abnormal findings (principal); E11.9 Type 2 diabetes mellitus without complications; D50.9 Iron deficiency anemia, unspecified
CPT/HCPCS: 36415; 80053; 80061; 82728; 83036; 85025

== ENCOUNTER → 2020-07-17 11:58 | Outpatient (CLI) | payer OTHER, SELFPAY ==
--- NOTE | 2020-07-17 12:01 | DIET.PN ---
Dietary Progress Note Assessment: 59y F referred to nutrition for preDM (A1c 6.1, BG 111) and high TGs (232) as well as weight management (BMI 36.6). Pt had lost 15# before covid but has gained this all back in past 6mo. Pt reports big changes since Covid to lifestyle management: was going to gym 2x/w at pool, swim class 2x/w, [facility] 1x/w but now just walking twice per week. Pt has been comfort eating, some baked goods-banana bread, blueberry muffins and recently has had a week or so of diarrhea leading her to follow a high carb, BRAT diet to manage, pt has been sensitive to dairy and onions as part of this. Pt consumes no etoh. Pt reports poor sleep r/t shoulder nerve impingement, has been seeing PT for 2 mo and does exercises for it twice daily. Was eating a lot of fruit, raw veggies (salads, tomato cucumber salads) to help c weight management and preDM. B: maltese muffin L: toast c pb and SF jam salad c chicken or hard boiled eggs, ham or turkey on whole grain bread D: baked potato or rice c chicken HT: 5'6 WT: 227# BMI: 36.6 Labs: BG 111 H, A1c 6.1 H, TG 232 H, HDL 36 L Nutrition Diagnosis: altered nutrition related laboratory values r/t undesirable food choices and physical inactivity aeb pt relying on high carb foods to manage diarrhea sx, pt walking twice per week because of gym facility closures, A1c 6.1, FBG 111, TG 232, BMI 36.6. Interventions: 1. Discussed effects of global pandemic on self care, high stress, comfort eating, difficulty exercising, social isolation. Encouraged pt to be gentle with self and come at this will self-love. 2. Discussed plate balance method of carb and calorie control. Pt reports eating just fruits and veggies or carbs and protein, but not usually all combined together. Worked c pt to build meals which fit this pattern for natural portion control and balance. 3. To manage diarrhea, gave pt GI soothing recipes and list of foods which tend to worsen and improve sx. Encouraged pt to incorporate lightly cooked vegetables into diet slowly and moderate fruit portions to 2c/d. 4. Discussed barriers to exercise, pt has large hill so walking near home is difficult. Pool and gym are now open with restrictions. Pt will call to see if she can get back into water aerobics 2x/w and will increase walking to 4d/w so she is active 6/7 days per week. Monitoring/Evaluations: f/u in 1 mo to assess progress
== END ==
PROVIDERS: PCP Family Medicine; Referring Provider Naturopath; Visit Provider Naturopath
DX: R73.03 Prediabetes (principal)
CPT/HCPCS: 97802

== ENCOUNTER 2020-07-18 09:00 | Outpatient (RCR) | payer OTHER, SELFPAY ==
--- NOTE | 2020-05-21 12:25 | PT.OIE ---
Current Diagnoses Fistula, right shoulder (05/21/20) Pain in left shoulder (05/21/20) Pain in right hip (05/21/20) Pain in left hip (05/21/20) Past Medical History (Last Updated 02/08/19 @ 12:42 by Bina Reese MD) Ankle pain (Resolved 2014) Anxiety (Chronic 2004) Chicken pox (Resolved ~1962) Chickenpox (Resolved) Colon polyps (Resolved 2017) DM type 2 (diabetes mellitus, type 2) (Chronic) Foot pain (Resolved 2016) GERD (gastroesophageal reflux disease) (Chronic 2013) Hypertension (Chronic ~1997) Kidney stones (Resolved ~1999) Osteoarthritis (Chronic 2014) Schatzki's ring (Chronic 2013) Shingles (Resolved) Past Surgical History (Last Updated 02/07/19 @ 21:24 by Raya Oneill) Anesthesia (Resolved) History of ankle surgery (Resolved 09/2017) Hx of appendectomy (Resolved 1978) Hx of breast biopsy (Resolved 1994) Hx of endoscopy (Resolved 02/2018) Hx of lithotripsy (Resolved) Visit Care Team Role Provider Type Bina Reese MD Attending Provider Physician Primary Care Provider Referring Provider Specialty: [facility] Practice Address: [address] [place] [address], [facility] Email: [email or web address] Physical Therapy Initial Evaluation PT-OP-A Visit Information Start: 05/21/20 11:16 Freq: Status: Active Protocol: Document 05/21/20 11:15 HH (Rec: 05/21/20 12:25 [email or web address]) Out-Patient Physical Therapy Visit Information Visit Information Visit Type Initial Evaluation Visit Start Time 11:15 Visit Stop Time 12:00 Total Visit Minutes 45 Visit Number 1 Number of PHOTOENGRAVING FINISHER Visits 0 Evaluation Information Evaluation Date 05/21/20 PT-OP-B Current Condition Start: 05/21/20 11:16 Freq: Status: Active Protocol: Document 05/21/20 11:15 HH (Rec: 05/21/20 12:25 [email or web address]) Current Condition History of Current Condition Onset Date November, Current Complaints Bilateral shoulder pain L >R, unable to reach behind her back and lift History of Current Condition Pt is a 59yo female here for bilateral shoulder pain L worse than R since November this year. Pt reports her pain started after she went for yoga and swimming class. Pain is achy and pinching at the anterior part of shoulder joints all the time and her pain has been getting worse every since then. She currently has difficulty reaching her back to aliza/doff her bra, washing her back and pull her pants up d/t pain. Pt is a side sleeper and her shoulder pain also affects her sleep that wakes her up couple times during the night. Pt has tried snow layton stretching ex but that one hurts a lot but did feel helpful later of the day. Treatment Goals Patient/Caregiver Goals 1. to be pain free for both shoulders for functional activities. Prior Functional Status Baseline Function- ADL's Independent Baseline Function- Mobility Independent Baseline Function- Recreation/Hobbies yoga and swimming without shoulder pain Current Functional Impairments (Reported) Functional Limitations- ADL's difficulty aliza/doff her bra and shirts difficulty pulling up her pants Personal Factors Other Personal Factors That May Effect DMII Therapy/Recovery HTN PT-OP-C Subjective Start: 05/21/20 11:16 Freq: Status: Active Protocol: Document 05/21/20 11:15 HH (Rec: 05/21/20 12:25 [email or web address]) OP-PT Subjective Patient Comments Patient Comments My shoulder pain hurt quite a bit L worse than R Patient Questionnaires Quick Dash- Upper Extremity Quick Dash UE Score 29.54 Quick Dash UE Impairment 20 to 39% Impaired (Score 20- 39) OP-PT Pain Assessment Location B shoulder Pain Location Details anterior aspect of GHJ Intensity 4 Scale Used Numeric (0 - 10) Description Aching,Pinching Frequency Intermittent Pain Aggravating Factors Position,Activity,Exercise Pain Alleviating Factors Inactivity PT-OP-E Functional Tests Start: 05/21/20 11:16 Freq: Status: Active Protocol: Document 05/21/20 11:15 HH (Rec: 05/21/20 12:25 [email or web address]) Functional Tests Apley's Scratch Test Action 2- Left R scap spine but painful at midrange Action 2- Right L scap spine without pain Action 3- Left R L1 TP with pain for the whole range Action 3- Right T10 with pain at end range PT-OP-F Manual Assessment Start: 05/21/20 11:16 Freq: Status: Active Protocol: Document 05/21/20 11:15 HH (Rec: 05/21/20 12:25 [email or web address]) Manual Assessments Soft Tissue Assessment Soft Tissue Mobility Assessment singificant tenderness to press at Pecs L worse than R, Infraspinatus and teres minor PT-OP-J Posture/Palpation/Skin Start: 05/21/20 11:16 Freq: Status: Active Protocol: Document 05/21/20 11:15 HH (Rec: 05/21/20 12:25 [email or web address]) Posture Evaluation Position Standing Head/C-Spine Posture Forward Head T-Spine Posture Increased Kyphosis L-Spine Posture Increased Lordosis Shoulder Posture (L) Rounded,(R) Rounded,(L) Forward,(R) Forward Scapula Posture (R) Protracted Arm Posture (R) Internally Rotated PT-OP-K Range of Motion Start: 05/21/20 11:16 Freq: Status: Active Protocol: Document 05/21/20 11:15 HH (Rec: 05/21/20 12:25 [email or web address]) Cervical Spine Range of Motion Cervical Spine Active Degrees Rotation Left 48 Rotation Right 47 ROM Limitations Soft Tissue Tightness Comments flexion chin to sternum Shoulder Goniometric Range of Motion Shoulder Right Active Shoulder ROM WFL Yes Testing Position Standing Flexion 175 Extension 45 Abduction 170 External Rotation at 90 degrees 90 Abduction Internal Rotation 90 Left Active Shoulder ROM WFL Yes Testing Position Standing Flexion 155 Extension 45 Abduction 170 External Rotation at 90 degrees 65 Abduction Internal Rotation 70 Shoulder ROM Limitations Shoulder ROM Limitations Pain Comments significant pain at L anterior shoulder with supine ER painful arc noted at abd 90 and flexion 90 degrees PT-OP-L Special Tests Start: 05/21/20 11:16 Freq: Status: Active Protocol: Document 05/21/20 11:15 HH (Rec: 05/21/20 12:25 [email or web address]) Special Tests Shoulder Special Tests Quintero Sherman Impingement Test Results pain at B side L>R Neer Impingement Test Results pain at B side L>R Apprehension Test Test Results positive B side Comments pain reduced with post mob on L Empty Can Test Results pain at B side Elevation Impingement Test Results pain at B side Drop Arm Rotator Cuff Test Results B -ve AC Joint Compression Test Results Pain at L side PT-OP-M Strength Start: 05/21/20 11:16 Freq: Status: Active Protocol: Document 05/21/20 11:15 HH (Rec: 05/21/20 12:25 [email or web address]) Shoulder Strength Shoulder Manual Muscle Testing Right Flexion 4+ Good+ Extension 4+ Good+ Abduction (C5) 4+ Good+ External Rotation 4 Good Internal Rotation 4+ Good+ Left Flexion 4 Good Extension 4+ Good+ Abduction (C5) 4- Good- Adduction 4+ Good+ External Rotation 4- Good- Internal Rotation 4+ Good+ Comments pain with abd, flex and ER PT-OP-Q Treatments Start: 05/21/20 11:16 Freq: Status: Active Protocol: Document 05/21/20 11:15 HH (Rec: 05/21/20 12:25 [email or web address]) Therapeutic Exercises Standing Exercises tennis ball release Standing Exercise Name at pecs Side bilateral Comments for HEP door stretch Standing Exercise Name elbow parallel to shoulders Side bilateral Reps/Minutes 10 secs hold Comments for hEP Manual Therapy Treatment Soft Tissue Mobilization PECs Body Location B pecs Mobilization Type Myofascial Release,Sustained Pressure,Trigger Point Release Intensity/Depth Moderate Body Position Supine Comments significant tenderness noted L >R PT-OP-T Assessment and Plan Start: 05/21/20 11:16 Freq: Status: Active Protocol: Document 05/21/20 11:15 HH (Rec: 05/21/20 12:25 [email or web address]) Physical Therapy Assessment Rehab Potential Rehabilitation Potential Excellent Evaluation Complexity Number of Personal Factors/Comorbidities 1-2 Number of Body Systems Impaired 1-2 Clinical Presentation at Evaluation Stable Impairments Impairments Functional Activities, Functional Mobility,Pain, Posture,ROM,Soft Tissue Mobility,Strength Goals strength Impairment Pt has overall shoulder strength loss Chcf Goal (LTG) Pt will show 1 full MMT grade strength grade for both shoulders so she participate yoga and swimming related exercises. LTG Duration 8 weeks pain Impairment pt has pain for overhead movements and reaching her back Chcf Goal (LTG) Pt will be pain free for overhead and reaching her back related movements so she aliza / doff clothes LTG Duration 8 weeks Quickdash Impairment pt scores 29.54 Supervisor Heavy Equipment Goal (LTG) Pt will score 20 or below for Quickdash to improve her qualify of life LTG Duration 8weeks Assessment Summary Assessment This is a low complexity evaluation for this 59yo female here for bilateral shoulder pain L worse than R. Upon assessment, pt shows bilateral shoulder impingement L worse than R with noticeable anterior GHJ translation during reaching her back movements. Significant tenderness to pressure and muscle tension noted at B pecs L>R. Pt did feel better with immediate ROM gain after manual therapy on pecs and post glide at GHJ. Gave pt's HEP with door stretch and tennis ball releaes on pecs. Pt will benefit from skilled therapy to improved her GHJ congruency , RTC strength and pecs muscle tension so pt can be pain free for functional activtiesi such as aliza/doff clothes and partipating yoga/ swimming class. Physical Therapy Plan Frequency and Duration Frequency of Treatment 2x/Week Duration of Treatment 8 weeks Plan of Care Start Date 05/21/20 Plan of Care End Date 07/20/20 Next Visit Focus/Plan Next Note Type Treatment Note Next Visit Plan review HEP manual on pecs, RTC infraspinatus, trunk extension with foam roller post glide of GHJ open book for pec and rotation scap squeeze
--- NOTE | 2020-05-21 12:25 | PT.OPPOC ---
Physical, Occupational & Speech Therapy At [facility] Current Diagnoses Fistula, right shoulder (05/21/20) Pain in left shoulder (05/21/20) Pain in right hip (05/21/20) Pain in left hip (05/21/20) Visit Care Team Role Provider Type Bina Reese MD Attending Provider Physician Primary Care Provider Referring Provider Specialty: [facility] Address: [address] [place] [address], [facility], [place], [address] Email: [email or web address] Plan Of Care PT-OP-T Assessment and Plan Start: 05/21/20 11:16 Freq: Status: Active Protocol: Document 05/21/20 11:15 HH (Rec: 05/21/20 12:25 HH [email or web address]) Physical Therapy Assessment Rehab Potential Rehabilitation Potential Excellent Evaluation Complexity Number of Personal Factors/Comorbidities 1-2 Number of Body Systems Impaired 1-2 Clinical Presentation at Evaluation Stable Impairments Impairments Functional Activities, Functional Mobility,Pain, Posture,ROM,Soft Tissue Mobility,Strength Goals strength Impairment Pt has overall shoulder strength loss [facility] Goal (LTG) Pt will show 1 full MMT grade strength grade for both shoulders so she participate yoga and swimming related exercises. LTG Duration 8 weeks pain Impairment pt has pain for overhead movements and reaching her back Dredge Pump Operator Goal (LTG) Pt will be pain free for overhead and reaching her back related movements so she aliza / doff clothes LTG Duration 8 weeks Quickdash Impairment pt scores 29.54 Dredge Pump Operator Goal (LTG) Pt will score 20 or below for Quickdash to improve her qualify of life LTG Duration 8weeks Assessment Summary Assessment This is a low complexity evaluation for this 59yo female here for bilateral shoulder pain L worse than R. Upon assessment, pt shows bilateral shoulder impingement L worse than R with noticeable anterior GHJ translation during reaching her back movements. Significant tenderness to pressure and muscle tension noted at B pecs L>R. Pt did feel better with immediate ROM gain after manual therapy on pecs and post glide at GHJ. Gave pt's HEP with door stretch and tennis ball releaes on pecs. Pt will benefit from skilled therapy to improved her GHJ congruency , RTC strength and pecs muscle tension so pt can be pain free for functional activtiesi such as aliza/doff clothes and partipating yoga/ swimming class. Physical Therapy Plan Frequency and Duration Frequency of Treatment 2x/Week Duration of Treatment 8 weeks Plan of Care Start Date 05/21/20 Plan of Care End Date 07/20/20 Next Visit Focus/Plan Next Note Type Treatment Note Next Visit Plan review HEP manual on pecs, RTC infraspinatus, trunk extension with foam roller post glide of GHJ open book for pec and rotation scap squeeze Plan of Care Dates Plan of Care Start Date 05/21/20 Plan of Care End Date 07/20/20 Electronically Signed by: Ange Bravo, PT 05/21/20 [id number] Please Sign and Return: I have reviewed this Plan of Care and certify that the skilled therapy services above are required to meet the patient?s needs. Physician Signature Date Printed Name and Credentials Clinical Instructor Signature Printed Name and Credentials
--- NOTE | 2020-05-27 10:32 | PT.OTN ---
Current Diagnoses Fistula, right shoulder (05/27/20) Pain in left shoulder (05/27/20) Pain in right hip (05/27/20) Pain in left hip (05/27/20) Physical Therapy Treatment Note PT-OP-A Visit Information Start: 05/21/20 11:16 Freq: Status: Active Protocol: Document 05/27/20 09:47 HH (Rec: 05/27/20 10:32 [id number]) Out-Patient Physical Therapy Visit Information Visit Information Visit Type Treatment Note Visit Start Time 09:48 Visit Stop Time 10:30 Total Visit Minutes 42 Visit Number 2 Number of SUPERVISOR CHANNEL PROCESS Visits 0 PT-OP-B Current Condition Start: 05/21/20 11:16 Freq: Status: Active Protocol: Document 05/21/20 11:15 HH (Rec: 05/21/20 12:25 HH [email or web address]) Current Condition History of Current Condition Onset Date November, Current Complaints Bilateral shoulder pain L >R, unable to reach behind her back and lift History of Current Condition Pt is a 59yo female here for bilateral shoulder pain L worse than R since November this year. Pt reports her pain started after she went for yoga and swimming class. Pain is achy and pinching at the anterior part of shoulder joints all the time and her pain has been getting worse every since then. She currently has difficulty reaching her back to aliza/doff her bra, washing her back and pull her pants up d/t pain. Pt is a side sleeper and her shoulder pain also affects her sleep that wakes her up couple times during the night. Pt has tried snow layton stretching ex but that one hurts a lot but did feel helpful later of the day. Treatment Goals Patient/Caregiver Goals 1. to be pain free for both shoulders for functional activities. Prior Functional Status Baseline Function- ADL's Independent Baseline Function- Mobility Independent Baseline Function- Recreation/Hobbies yoga and swimming without shoulder pain Current Functional Impairments (Reported) Functional Limitations- ADL's difficulty aliza/doff her bra and shirts difficulty pulling up her pants Personal Factors Other Personal Factors That May Effect DMII Therapy/Recovery HTN PT-OP-C Subjective Start: 05/21/20 11:16 Freq: Status: Active Protocol: Document 05/27/20 09:47 HH (Rec: 05/27/20 10:32 [id number]) OP-PT Subjective Patient Comments Patient Comments I got sore from last assessment but the soreness went away in a day or two. But both shoulders still hurt a lot. Patient Reported Progress Same PT-OP-E Functional Tests Start: 05/21/20 11:16 Freq: Status: Active Protocol: Document 05/21/20 11:15 HH (Rec: 05/21/20 12:25 [email or web address]) Functional Tests Apley's Scratch Test Action 2- Left R scap spine but painful at midrange Action 2- Right L scap spine without pain Action 3- Left R L1 TP with pain for the whole range Action 3- Right T10 with pain at end range PT-OP-F Manual Assessment Start: 05/21/20 11:16 Freq: Status: Active Protocol: Document 05/21/20 11:15 HH (Rec: 05/21/20 12:25 [email or web address]) Manual Assessments Soft Tissue Assessment Soft Tissue Mobility Assessment singificant tenderness to press at Pecs L worse than R, Infraspinatus and teres minor PT-OP-J Posture/Palpation/Skin Start: 05/21/20 11:16 Freq: Status: Active Protocol: Document 05/21/20 11:15 HH (Rec: 05/21/20 12:25 [email or web address]) Posture Evaluation Position Standing Head/C-Spine Posture Forward Head T-Spine Posture Increased Kyphosis L-Spine Posture Increased Lordosis Shoulder Posture (L) Rounded,(R) Rounded,(L) Forward,(R) Forward Scapula Posture (R) Protracted Arm Posture (R) Internally Rotated PT-OP-K Range of Motion Start: 05/21/20 11:16 Freq: Status: Active Protocol: Document 05/21/20 11:15 HH (Rec: 05/21/20 12:25 [email or web address]) Cervical Spine Range of Motion Cervical Spine Active Degrees Rotation Left 48 Rotation Right 47 ROM Limitations Soft Tissue Tightness Comments flexion chin to sternum Shoulder Goniometric Range of Motion Shoulder Right Active Shoulder ROM WFL Yes Testing Position Standing Flexion 175 Extension 45 Abduction 170 External Rotation at 90 degrees 90 Abduction Internal Rotation 90 Left Active Shoulder ROM WFL Yes Testing Position Standing Flexion 155 Extension 45 Abduction 170 External Rotation at 90 degrees 65 Abduction Internal Rotation 70 Shoulder ROM Limitations Shoulder ROM Limitations Pain Comments significant pain at L anterior shoulder with supine ER painful arc noted at abd 90 and flexion 90 degrees PT-OP-L Special Tests Start: 05/21/20 11:16 Freq: Status: Active Protocol: Document 05/21/20 11:15 HH (Rec: 05/21/20 12:25 HH [email or web address]) Special Tests Shoulder Special Tests Quintero Sherman Impingement Test Results pain at B side L>R Neer Impingement Test Results pain at B side L>R Apprehension Test Test Results positive B side Comments pain reduced with post mob on L Empty Can Test Results pain at B side Elevation Impingement Test Results pain at B side Drop Arm Rotator Cuff Test Results B -ve AC Joint Compression Test Results Pain at L side PT-OP-M Strength Start: 05/21/20 11:16 Freq: Status: Active Protocol: Document 05/21/20 11:15 HH (Rec: 05/21/20 12:25 [email or web address]) Shoulder Strength Shoulder Manual Muscle Testing Right Flexion 4+ Good+ Extension 4+ Good+ Abduction (C5) 4+ Good+ External Rotation 4 Good Internal Rotation 4+ Good+ Left Flexion 4 Good Extension 4+ Good+ Abduction (C5) 4- Good- Adduction 4+ Good+ External Rotation 4- Good- Internal Rotation 4+ Good+ Comments pain with abd, flex and ER PT-OP-Q Treatments Start: 05/21/20 11:16 Freq: Status: Active Protocol: Document 05/27/20 09:47 HH (Rec: 05/27/20 10:32 HH [id number]) Therapeutic Exercises Prone Exercises prone Ts Side bilateral Reps/Minutes 5 Comments unable to reach full range d/t weakness. prone scap squeeze Side bilateral Reps/Minutes 8 x2 with 3 secs hold Comments for HEP, no pain noted Sidelying Exercises open book Sidelying Exercise Name for HEP Side bilateral Reps/Minutes 10 x2 Comments avoid lumbar rotation, no pain noted Standing Exercises tennis ball release Standing Exercise Name at pecs Side bilateral Comments for HEP door stretch Standing Exercise Name elbow parallel to shoulders Side bilateral Reps/Minutes 10 secs hold Comments for hEP Manual Therapy Treatment Soft Tissue Mobilization RTC Body Location infraspinatus, teres minor Mobilization Type Myofascial Release,Sustained Pressure,Trigger Point Release Intensity/Depth Moderate Body Position Supine Comments significant tenderness noted L >R PECs Body Location B pecs Mobilization Type Myofascial Release,Sustained Pressure,Trigger Point Release Intensity/Depth Moderate Body Position Supine Comments significant tenderness noted L >R PT-OP-T Assessment and Plan Start: 05/21/20 11:16 Freq: Status: Active Protocol: Document 05/27/20 09:47 HH (Rec: 05/27/20 10:32 HH [id number]) Physical Therapy Assessment Goals strength Impairment Pt has overall shoulder strength loss Press Operator Automatic Goal (LTG) Pt will show 1 full MMT grade strength grade for both shoulders so she participate yoga and swimming related exercises. LTG Duration 8 weeks pain Impairment pt has pain for overhead movements and reaching her back Press Operator Automatic Goal (LTG) Pt will be pain free for overhead and reaching her back related movements so she aliza / doff clothes LTG Duration 8 weeks Quickdash Impairment pt scores 29.54 Press Operator Automatic Goal (LTG) Pt will score 20 or below for Quickdash to improve her qualify of life LTG Duration 8weeks Assessment Summary Assessment Pt has poor scap strength who cannot reach full range for prone Ts along with poor t/s mobility. Added open book, scap squeeze and door stretch. Will cont POC to address pecs tightness and strengthen scap stabilizers and increase T spine mobility. Physical Therapy Plan Next Visit Focus/Plan Next Note Type Treatment Note Next Visit Plan review HEP manual on pecs, RTC infraspinatus, trunk extension with foam roller post glide of GHJ open book for pec and rotation scap squeeze
--- NOTE | 2020-05-29 10:31 | PT.OTN ---
Current Diagnoses Fistula, right shoulder (05/29/20) Pain in left shoulder (05/29/20) Pain in right hip (05/29/20) Pain in left hip (05/29/20) Physical Therapy Treatment Note PT-OP-A Visit Information Start: 05/21/20 11:16 Freq: Status: Active Protocol: Document 05/29/20 09:45 DCW (Rec: 05/29/20 10:31 DCW [id number]) Out-Patient Physical Therapy Visit Information Visit Information Visit Type Treatment Note Visit Start Time 09:45 Visit Stop Time 10:30 Total Visit Minutes 45 Visit Number 3 Number of SIEVE MAKER Visits 0 Evaluation Information Evaluation Date 05/21/20 PT-OP-B Current Condition Start: 05/21/20 11:16 Freq: Status: Active Protocol: Document 05/21/20 11:15 HH (Rec: 05/21/20 12:25 HH [email or web address]) Current Condition History of Current Condition Onset Date November, Current Complaints Bilateral shoulder pain L >R, unable to reach behind her back and lift History of Current Condition Pt is a 59yo female here for bilateral shoulder pain L worse than R since November this year. Pt reports her pain started after she went for yoga and swimming class. Pain is achy and pinching at the anterior part of shoulder joints all the time and her pain has been getting worse every since then. She currently has difficulty reaching her back to aliza/doff her bra, washing her back and pull her pants up d/t pain. Pt is a side sleeper and her shoulder pain also affects her sleep that wakes her up couple times during the night. Pt has tried snow layton stretching ex but that one hurts a lot but did feel helpful later of the day. Treatment Goals Patient/Caregiver Goals 1. to be pain free for both shoulders for functional activities. Prior Functional Status Baseline Function- ADL's Independent Baseline Function- Mobility Independent Baseline Function- Recreation/Hobbies yoga and swimming without shoulder pain Current Functional Impairments (Reported) Functional Limitations- ADL's difficulty aliza/doff her bra and shirts difficulty pulling up her pants Personal Factors Other Personal Factors That May Effect DMII Therapy/Recovery HTN PT-OP-C Subjective Start: 05/21/20 11:16 Freq: Status: Active Protocol: Document 05/29/20 09:45 DCW (Rec: 05/29/20 10:31 DCW [id number]) OP-PT Subjective Patient Comments Patient Comments Pt reports she is a little ouchie after doing her exercises yesterday. PT-OP-E Functional Tests Start: 05/21/20 11:16 Freq: Status: Active Protocol: Document 05/21/20 11:15 HH (Rec: 05/21/20 12:25 HH [email or web address]) Functional Tests Apley's Scratch Test Action 2- Left R scap spine but painful at midrange Action 2- Right L scap spine without pain Action 3- Left R L1 TP with pain for the whole range Action 3- Right T10 with pain at end range PT-OP-F Manual Assessment Start: 05/21/20 11:16 Freq: Status: Active Protocol: Document 05/21/20 11:15 HH (Rec: 05/21/20 12:25 [email or web address]) Manual Assessments Soft Tissue Assessment Soft Tissue Mobility Assessment singificant tenderness to press at Pecs L worse than R, Infraspinatus and teres minor PT-OP-J Posture/Palpation/Skin Start: 05/21/20 11:16 Freq: Status: Active Protocol: Document 05/21/20 11:15 HH (Rec: 05/21/20 12:25 [email or web address]) Posture Evaluation Position Standing Head/C-Spine Posture Forward Head T-Spine Posture Increased Kyphosis L-Spine Posture Increased Lordosis Shoulder Posture (L) Rounded,(R) Rounded,(L) Forward,(R) Forward Scapula Posture (R) Protracted Arm Posture (R) Internally Rotated PT-OP-K Range of Motion Start: 05/21/20 11:16 Freq: Status: Active Protocol: Document 05/21/20 11:15 HH (Rec: 05/21/20 12:25 [email or web address]) Cervical Spine Range of Motion Cervical Spine Active Degrees Rotation Left 48 Rotation Right 47 ROM Limitations Soft Tissue Tightness Comments flexion chin to sternum Shoulder Goniometric Range of Motion Shoulder Right Active Shoulder ROM WFL Yes Testing Position Standing Flexion 175 Extension 45 Abduction 170 External Rotation at 90 degrees 90 Abduction Internal Rotation 90 Left Active Shoulder ROM WFL Yes Testing Position Standing Flexion 155 Extension 45 Abduction 170 External Rotation at 90 degrees 65 Abduction Internal Rotation 70 Shoulder ROM Limitations Shoulder ROM Limitations Pain Comments significant pain at L anterior shoulder with supine ER painful arc noted at abd 90 and flexion 90 degrees PT-OP-L Special Tests Start: 05/21/20 11:16 Freq: Status: Active Protocol: Document 05/21/20 11:15 HH (Rec: 05/21/20 12:25 HH [email or web address]) Special Tests Shoulder Special Tests Quintero Sherman Impingement Test Results pain at B side L>R Neer Impingement Test Results pain at B side L>R Apprehension Test Test Results positive B side Comments pain reduced with post mob on L Empty Can Test Results pain at B side Elevation Impingement Test Results pain at B side Drop Arm Rotator Cuff Test Results B -ve AC Joint Compression Test Results Pain at L side PT-OP-M Strength Start: 05/21/20 11:16 Freq: Status: Active Protocol: Document 05/21/20 11:15 HH (Rec: 05/21/20 12:25 HH [email or web address]) Shoulder Strength Shoulder Manual Muscle Testing Right Flexion 4+ Good+ Extension 4+ Good+ Abduction (C5) 4+ Good+ External Rotation 4 Good Internal Rotation 4+ Good+ Left Flexion 4 Good Extension 4+ Good+ Abduction (C5) 4- Good- Adduction 4+ Good+ External Rotation 4- Good- Internal Rotation 4+ Good+ Comments pain with abd, flex and ER PT-OP-Q Treatments Start: 05/21/20 11:16 Freq: Status: Active Protocol: Document 05/29/20 09:45 DCW (Rec: 05/29/20 10:31 DCW [id number]) Therapeutic Exercises Supine Exercises Horizontal Adduction Supine Exercise Name Horizontal Adduction Side bilateral Resistance 3# Reps/Minutes x10 Shoulder Flexion Supine Exercise Name Shoulder Flexion Side bilateral Resistance 3# Reps/Minutes x10 Serratus Punch Supine Exercise Name Serratus punch Side bilateral Resistance 3# Reps/Minutes 2x10 Sidelying Exercises open book Side bilateral Reps/Minutes 10 x2 Comments avoid lumbar rotation, no pain noted Standing Exercises door stretch Standing Exercise Name L hand lowered to decrease pain Side bilateral Reps/Minutes 10 secs hold Comments for hEP Manual Therapy Treatment Soft Tissue Mobilization RTC Body Location infraspinatus, teres minor Mobilization Type Myofascial Release,Sustained Pressure,Trigger Point Release Intensity/Depth Moderate Body Position Supine Comments significant tenderness noted L >R PECs Body Location B pecs Mobilization Type Myofascial Release,Sustained Pressure,Trigger Point Release Intensity/Depth Moderate Body Position Supine Comments significant tenderness noted L >R Joint Mobilizations A/C Joint B A/C joint Direction Inferior Grade III Body Position Supine Glenohumeral Joint B GH Direction A->P Grade III Body Position Supine PT-OP-T Assessment and Plan Start: 05/21/20 11:16 Freq: Status: Active Protocol: Document 05/29/20 09:45 DCW (Rec: 05/29/20 10:31 DCW [id number]) Physical Therapy Assessment Goals strength Impairment Pt has overall shoulder strength loss Assisted Goal (LTG) Pt will show 1 full MMT grade strength grade for both shoulders so she participate yoga and swimming related exercises. LTG Duration 8 weeks pain Impairment pt has pain for overhead movements and reaching her back Assisted Goal (LTG) Pt will be pain free for overhead and reaching her back related movements so she aliza / doff clothes LTG Duration 8 weeks Quickdash Impairment pt scores 29.54 Assisted Goal (LTG) Pt will score 20 or below for Quickdash to improve her qualify of life LTG Duration 8weeks Assessment Summary Assessment Adjusted pt's exercises due to complaints of significant pain associated with prone exercises. Pt tolerated new exercises very well. Physical Therapy Plan Frequency and Duration Frequency of Treatment 2x/Week Duration of Treatment 8 weeks Plan of Care Start Date 05/21/20 Plan of Care End Date 07/20/20 Next Visit Focus/Plan Next Note Type Treatment Note Next Visit Plan review HEP manual on pecs, RTC infraspinatus, trunk extension with foam roller post glide of GHJ open book for pec and rotation scap squeeze
--- NOTE | 2020-06-03 11:59 | PT.OTN ---
Current Diagnoses Fistula, right shoulder (06/03/20) Pain in left shoulder (06/03/20) Pain in right hip (06/03/20) Pain in left hip (06/03/20) Physical Therapy Treatment Note PT-OP-A Visit Information Start: 05/21/20 11:16 Freq: Status: Active Protocol: Document 06/03/20 09:45 HH (Rec: 06/03/20 10:39 HH [id number]) Out-Patient Physical Therapy Visit Information Visit Information Visit Type Treatment Note Visit Start Time 09:46 Visit Stop Time 10:30 Total Visit Minutes 44 Visit Number 4 Number of SHOE MAKER Visits 0 PT-OP-B Current Condition Start: 05/21/20 11:16 Freq: Status: Active Protocol: Document 05/21/20 11:15 HH (Rec: 05/21/20 12:25 HH [email or web address]) Current Condition History of Current Condition Onset Date November, Current Complaints Bilateral shoulder pain L >R, unable to reach behind her back and lift History of Current Condition Pt is a 59yo female here for bilateral shoulder pain L worse than R since November this year. Pt reports her pain started after she went for yoga and swimming class. Pain is achy and pinching at the anterior part of shoulder joints all the time and her pain has been getting worse every since then. She currently has difficulty reaching her back to aliza/doff her bra, washing her back and pull her pants up d/t pain. Pt is a side sleeper and her shoulder pain also affects her sleep that wakes her up couple times during the night. Pt has tried snow layton stretching ex but that one hurts a lot but did feel helpful later of the day. Treatment Goals Patient/Caregiver Goals 1. to be pain free for both shoulders for functional activities. Prior Functional Status Baseline Function- ADL's Independent Baseline Function- Mobility Independent Baseline Function- Recreation/Hobbies yoga and swimming without shoulder pain Current Functional Impairments (Reported) Functional Limitations- ADL's difficulty aliza/doff her bra and shirts difficulty pulling up her pants Personal Factors Other Personal Factors That May Effect DMII Therapy/Recovery HTN PT-OP-C Subjective Start: 05/21/20 11:16 Freq: Status: Active Protocol: Document 06/03/20 09:45 HH (Rec: 06/03/20 10:39 HH [id number]) OP-PT Subjective Patient Comments Patient Comments Im doing all my exercises and collin been feeling better recently. My ROM has been getting better. Patient Reported Progress Improving PT-OP-E Functional Tests Start: 05/21/20 11:16 Freq: Status: Active Protocol: Document 05/21/20 11:15 HH (Rec: 05/21/20 12:25 [email or web address]) Functional Tests Apley's Scratch Test Action 2- Left R scap spine but painful at midrange Action 2- Right L scap spine without pain Action 3- Left R L1 TP with pain for the whole range Action 3- Right T10 with pain at end range PT-OP-F Manual Assessment Start: 05/21/20 11:16 Freq: Status: Active Protocol: Document 05/21/20 11:15 HH (Rec: 05/21/20 12:25 [email or web address]) Manual Assessments Soft Tissue Assessment Soft Tissue Mobility Assessment singificant tenderness to press at Pecs L worse than R, Infraspinatus and teres minor PT-OP-J Posture/Palpation/Skin Start: 05/21/20 11:16 Freq: Status: Active Protocol: Document 05/21/20 11:15 HH (Rec: 05/21/20 12:25 [email or web address]) Posture Evaluation Position Standing Head/C-Spine Posture Forward Head T-Spine Posture Increased Kyphosis L-Spine Posture Increased Lordosis Shoulder Posture (L) Rounded,(R) Rounded,(L) Forward,(R) Forward Scapula Posture (R) Protracted Arm Posture (R) Internally Rotated PT-OP-K Range of Motion Start: 05/21/20 11:16 Freq: Status: Active Protocol: Document 05/21/20 11:15 (Rec: 05/21/20 12:25 [email or web address]) Cervical Spine Range of Motion Cervical Spine Active Degrees Rotation Left 48 Rotation Right 47 ROM Limitations Soft Tissue Tightness Comments flexion chin to sternum Shoulder Goniometric Range of Motion Shoulder Right Active Shoulder ROM WFL Yes Testing Position Standing Flexion 175 Extension 45 Abduction 170 External Rotation at 90 degrees 90 Abduction Internal Rotation 90 Left Active Shoulder ROM WFL Yes Testing Position Standing Flexion 155 Extension 45 Abduction 170 External Rotation at 90 degrees 65 Abduction Internal Rotation 70 Shoulder ROM Limitations Shoulder ROM Limitations Pain Comments significant pain at L anterior shoulder with supine ER painful arc noted at abd 90 and flexion 90 degrees PT-OP-L Special Tests Start: 05/21/20 11:16 Freq: Status: Active Protocol: Document 05/21/20 11:15 HH (Rec: 05/21/20 12:25 HH [email or web address]) Special Tests Shoulder Special Tests Quintero Sherman Impingement Test Results pain at B side L>R Neer Impingement Test Results pain at B side L>R Apprehension Test Test Results positive B side Comments pain reduced with post mob on L Empty Can Test Results pain at B side Elevation Impingement Test Results pain at B side Drop Arm Rotator Cuff Test Results B -ve AC Joint Compression Test Results Pain at L side PT-OP-M Strength Start: 05/21/20 11:16 Freq: Status: Active Protocol: Document 05/21/20 11:15 HH (Rec: 05/21/20 12:25 [email or web address]) Shoulder Strength Shoulder Manual Muscle Testing Right Flexion 4+ Good+ Extension 4+ Good+ Abduction (C5) 4+ Good+ External Rotation 4 Good Internal Rotation 4+ Good+ Left Flexion 4 Good Extension 4+ Good+ Abduction (C5) 4- Good- Adduction 4+ Good+ External Rotation 4- Good- Internal Rotation 4+ Good+ Comments pain with abd, flex and ER PT-OP-Q Treatments Start: 05/21/20 11:16 Freq: Status: Active Protocol: Document 06/03/20 09:45 HH (Rec: 06/03/20 10:39 [id number]) Therapeutic Exercises Supine Exercises Serratus Punch Supine Exercise Name Serratus punch Side bilateral Resistance 3# Reps/Minutes 2x10 Sidelying Exercises SL ER Sidelying Exercise Name IR to mid range Side left Reps/Minutes 8 x2 Comments pain at end range of ER open book Side bilateral Reps/Minutes 10 x2 Comments no pain, improved ROM Standing Exercises scap squeeze and ext Side bilateral Equipment Used PVC pipe Reps/Minutes 8 x2 Comments scap squeeze then shd extension scap row Side bilateral Equipment Used level 1 Reps/Minutes 8 x2 OH ellyn Standing Exercise Name flexion and abduction Side bilateral Reps/Minutes 6 mins Comments pain at end range of flexoin and abduction Manual Therapy Treatment Soft Tissue Mobilization RTC Body Location infraspinatus, teres minor Mobilization Type Myofascial Release,Sustained Pressure,Trigger Point Release Intensity/Depth Moderate Body Position Supine Comments significant tenderness noted L >R PECs Body Location B pecs Mobilization Type Myofascial Release,Sustained Pressure,Trigger Point Release Intensity/Depth Moderate Body Position Supine Comments significant tenderness noted L >R Joint Mobilizations Glenohumeral Joint B GH Direction A->P Grade III Body Position Supine Comments no pain for ER on L side with post glide. PT-OP-T Assessment and Plan Start: 05/21/20 11:16 Freq: Status: Active Protocol: Document 06/03/20 09:45 HH (Rec: 06/03/20 10:39 HH [id number]) Physical Therapy Assessment Goals strength Impairment Pt has overall shoulder strength loss Slitting And Shipping Supervisor Goal (LTG) Pt will show 1 full MMT grade strength grade for both shoulders so she participate yoga and swimming related exercises. LTG Duration 8 weeks pain Impairment pt has pain for overhead movements and reaching her back Slitting And Shipping Supervisor Goal (LTG) Pt will be pain free for overhead and reaching her back related movements so she aliza / doff clothes LTG Duration 8 weeks Quickdash Impairment pt scores 29.54 Snf Goal (LTG) Pt will score 20 or below for Quickdash to improve her qualify of life LTG Duration 8weeks Assessment Summary Assessment Pt feels good with post glide of GHJ for ER. IR cont to be the most uncomfortable motion and significant anterior translation noted. Tx focused on manual therapy and scap stabilization and RTC strengthening. Pt cira well. Physical Therapy Plan Next Visit Focus/Plan Next Note Type Treatment Note Next Visit Plan review HEP manual on pecs, RTC infraspinatus, trunk extension with foam roller post glide of GHJ open book for pec and rotation scap squeeze
--- NOTE | 2020-06-05 18:33 | PT.OTN ---
Current Diagnoses Fistula, right shoulder (06/05/20) Pain in left shoulder (06/05/20) Pain in right hip (06/05/20) Pain in left hip (06/05/20) Physical Therapy Treatment Note PT-OP-A Visit Information Start: 05/21/20 11:16 Freq: Status: Active Protocol: Document 06/05/20 18:28 [facility] (Rec: 06/05/20 18:33 [facility] [email or web address]) Out-Patient Physical Therapy Visit Information Visit Information Visit Type Treatment Note Visit Start Time 15:21 Visit Stop Time 16:01 Total Visit Minutes 40 Visit Number 5 Number of CHIEF [employer] Visits 0 PT-OP-B Current Condition Start: 05/21/20 11:16 Freq: Status: Active Protocol: Document 05/21/20 11:15 HH (Rec: 05/21/20 12:25 HH [email or web address]) Current Condition History of Current Condition Onset Date November, Current Complaints Bilateral shoulder pain L >R, unable to reach behind her back and lift History of Current Condition Pt is a 59yo female here for bilateral shoulder pain L worse than R since November this year. Pt reports her pain started after she went for yoga and swimming class. Pain is achy and pinching at the anterior part of shoulder joints all the time and her pain has been getting worse every since then. She currently has difficulty reaching her back to aliza/doff her bra, washing her back and pull her pants up d/t pain. Pt is a side sleeper and her shoulder pain also affects her sleep that wakes her up couple times during the night. Pt has tried snow layton stretching ex but that one hurts a lot but did feel helpful later of the day. Treatment Goals Patient/Caregiver Goals 1. to be pain free for both shoulders for functional activities. Prior Functional Status Baseline Function- ADL's Independent Baseline Function- Mobility Independent Baseline Function- Recreation/Hobbies yoga and swimming without shoulder pain Current Functional Impairments (Reported) Functional Limitations- ADL's difficulty aliza/doff her bra and shirts difficulty pulling up her pants Personal Factors Other Personal Factors That May Effect DMII Therapy/Recovery HTN PT-OP-C Subjective Start: 05/21/20 11:16 Freq: Status: Active Protocol: Document 06/05/20 18:28 [facility] (Rec: 06/05/20 18:33 [facility] [email or web address]) OP-PT Subjective Patient Comments Patient Comments Pt reports she is doing her exercises and ROM getting better but sleeping and rolling in bed is still awful and very painful. PT-OP-E Functional Tests Start: 05/21/20 11:16 Freq: Status: Active Protocol: Document 05/21/20 11:15 HH (Rec: 05/21/20 12:25 [email or web address]) Functional Tests Apley's Scratch Test Action 2- Left R scap spine but painful at midrange Action 2- Right L scap spine without pain Action 3- Left R L1 TP with pain for the whole range Action 3- Right T10 with pain at end range PT-OP-F Manual Assessment Start: 05/21/20 11:16 Freq: Status: Active Protocol: Document 05/21/20 11:15 HH (Rec: 05/21/20 12:25 [email or web address]) Manual Assessments Soft Tissue Assessment Soft Tissue Mobility Assessment singificant tenderness to press at Pecs L worse than R, Infraspinatus and teres minor PT-OP-J Posture/Palpation/Skin Start: 05/21/20 11:16 Freq: Status: Active Protocol: Document 05/21/20 11:15 HH (Rec: 05/21/20 12:25 [email or web address]) Posture Evaluation Position Standing Head/C-Spine Posture Forward Head T-Spine Posture Increased Kyphosis L-Spine Posture Increased Lordosis Shoulder Posture (L) Rounded,(R) Rounded,(L) Forward,(R) Forward Scapula Posture (R) Protracted Arm Posture (R) Internally Rotated PT-OP-K Range of Motion Start: 05/21/20 11:16 Freq: Status: Active Protocol: Document 05/21/20 11:15 HH (Rec: 05/21/20 12:25 [email or web address]) Cervical Spine Range of Motion Cervical Spine Active Degrees Rotation Left 48 Rotation Right 47 ROM Limitations Soft Tissue Tightness Comments flexion chin to sternum Shoulder Goniometric Range of Motion Shoulder Right Active Shoulder ROM WFL Yes Testing Position Standing Flexion 175 Extension 45 Abduction 170 External Rotation at 90 degrees 90 Abduction Internal Rotation 90 Left Active Shoulder ROM WFL Yes Testing Position Standing Flexion 155 Extension 45 Abduction 170 External Rotation at 90 degrees 65 Abduction Internal Rotation 70 Shoulder ROM Limitations Shoulder ROM Limitations Pain Comments significant pain at L anterior shoulder with supine ER painful arc noted at abd 90 and flexion 90 degrees PT-OP-L Special Tests Start: 05/21/20 11:16 Freq: Status: Active Protocol: Document 05/21/20 11:15 HH (Rec: 05/21/20 12:25 HH [email or web address]) Special Tests Shoulder Special Tests Quintero Sherman Impingement Test Results pain at B side L>R Neer Impingement Test Results pain at B side L>R Apprehension Test Test Results positive B side Comments pain reduced with post mob on L Empty Can Test Results pain at B side Elevation Impingement Test Results pain at B side Drop Arm Rotator Cuff Test Results B -ve AC Joint Compression Test Results Pain at L side PT-OP-M Strength Start: 05/21/20 11:16 Freq: Status: Active Protocol: Document 05/21/20 11:15 HH (Rec: 05/21/20 12:25 HH [email or web address]) Shoulder Strength Shoulder Manual Muscle Testing Right Flexion 4+ Good+ Extension 4+ Good+ Abduction (C5) 4+ Good+ External Rotation 4 Good Internal Rotation 4+ Good+ Left Flexion 4 Good Extension 4+ Good+ Abduction (C5) 4- Good- Adduction 4+ Good+ External Rotation 4- Good- Internal Rotation 4+ Good+ Comments pain with abd, flex and ER PT-OP-Q Treatments Start: 05/21/20 11:16 Freq: Status: Active Protocol: Document 06/05/20 18:28 [facility] (Rec: 06/05/20 18:33 [facility] [email or web address]) Therapeutic Activity Therapeutic Activity sleep Name s/l sleep position Comments use of long pillow between knees, pillows supporting neck , pillow under top arm, options of towel & pillow under side to offload arm laying on or use of pillow rolled Neuro Re-Education Treatment Other Activities PNF Comments 1. post elevation & ant depression of scap B-rhythmic initiation progressed to sustained isometrics progressed to combo of isotonics 2. mass flex & ext patterns: rhythmic initiation progressed to sustained isometrics progressed to combo of isotonics PT-OP-T Assessment and Plan Start: 05/21/20 11:16 Freq: Status: Active Protocol: Document 06/05/20 18:28 [facility] (Rec: 06/05/20 18:33 [facility] [email or web address]) Physical Therapy Assessment Goals strength Impairment Pt has overall shoulder strength loss Halfway Goal (LTG) Pt will show 1 full MMT grade strength grade for both shoulders so she participate yoga and swimming related exercises. LTG Duration 8 weeks pain Impairment pt has pain for overhead movements and reaching her back Halfway Goal (LTG) Pt will be pain free for overhead and reaching her back related movements so she aliza / doff clothes LTG Duration 8 weeks Quickdash Impairment pt scores 29.54 [employer] Charcoal Burner Goal (LTG) Pt will score 20 or below for Quickdash to improve her qualify of life LTG Duration 8weeks Assessment Summary Assessment Treatment focused on bed mobility & sleep position d/t those being pt main concerns. Pt was able to roll in bed with dec shoulder pain and comfortable position was found for sleeping Physical Therapy Plan Frequency and Duration Frequency of Treatment 2x/Week Duration of Treatment 8 weeks Plan of Care Start Date 05/21/20 Plan of Care End Date 07/20/20 Next Visit Focus/Plan Next Note Type Treatment Note Next Visit Plan review HEP manual on pecs, RTC infraspinatus, trunk extension with foam roller post glide of J open book for pec and rotation scap squeeze
--- NOTE | 2020-06-10 10:34 | PT.OTN ---
Current Diagnoses Fistula, right shoulder (06/10/20) Pain in left shoulder (06/10/20) Pain in right hip (06/10/20) Pain in left hip (06/10/20) Physical Therapy Treatment Note PT-OP-A Visit Information Start: 05/21/20 11:16 Freq: Status: Active Protocol: Document 06/10/20 09:50 HH (Rec: 06/10/20 10:34 [id number]) Out-Patient Physical Therapy Visit Information Visit Information Visit Type Treatment Note Visit Start Time 09:50 Visit Stop Time 10:30 Total Visit Minutes 40 Visit Number 5 Number of PORTABLE PINCH RIVETER Visits 0 PT-OP-B Current Condition Start: 05/21/20 11:16 Freq: Status: Active Protocol: Document 05/21/20 11:15 HH (Rec: 05/21/20 12:25 HH [email or web address]) Current Condition History of Current Condition Onset Date November, Current Complaints Bilateral shoulder pain L >R, unable to reach behind her back and lift History of Current Condition Pt is a 59yo female here for bilateral shoulder pain L worse than R since November this year. Pt reports her pain started after she went for yoga and swimming class. Pain is achy and pinching at the anterior part of shoulder joints all the time and her pain has been getting worse every since then. She currently has difficulty reaching her back to aliza/doff her bra, washing her back and pull her pants up d/t pain. Pt is a side sleeper and her shoulder pain also affects her sleep that wakes her up couple times during the night. Pt has tried snow layton stretching ex but that one hurts a lot but did feel helpful later of the day. Treatment Goals Patient/Caregiver Goals 1. to be pain free for both shoulders for functional activities. Prior Functional Status Baseline Function- ADL's Independent Baseline Function- Mobility Independent Baseline Function- Recreation/Hobbies yoga and swimming without shoulder pain Current Functional Impairments (Reported) Functional Limitations- ADL's difficulty aliza/doff her bra and shirts difficulty pulling up her pants Personal Factors Other Personal Factors That May Effect DMII Therapy/Recovery HTN PT-OP-C Subjective Start: 05/21/20 11:16 Freq: Status: Active Protocol: Document 06/10/20 09:50 HH (Rec: 06/10/20 10:34 [id number]) OP-PT Subjective Patient Comments Patient Comments I felt really good yesterday but i was reaching for a tennis ball with my L and accidentally hurt my L shoulder. I do feel better overall. Patient Reported Progress Improving PT-OP-E Functional Tests Start: 05/21/20 11:16 Freq: Status: Active Protocol: Document 05/21/20 11:15 HH (Rec: 05/21/20 12:25 [email or web address]) Functional Tests Apley's Scratch Test Action 2- Left R scap spine but painful at midrange Action 2- Right L scap spine without pain Action 3- Left R L1 TP with pain for the whole range Action 3- Right T10 with pain at end range PT-OP-F Manual Assessment Start: 05/21/20 11:16 Freq: Status: Active Protocol: Document 05/21/20 11:15 HH (Rec: 05/21/20 12:25 [email or web address]) Manual Assessments Soft Tissue Assessment Soft Tissue Mobility Assessment singificant tenderness to press at Pecs L worse than R, Infraspinatus and teres minor PT-OP-J Posture/Palpation/Skin Start: 05/21/20 11:16 Freq: Status: Active Protocol: Document 05/21/20 11:15 HH (Rec: 05/21/20 12:25 [email or web address]) Posture Evaluation Position Standing Head/C-Spine Posture Forward Head T-Spine Posture Increased Kyphosis L-Spine Posture Increased Lordosis Shoulder Posture (L) Rounded,(R) Rounded,(L) Forward,(R) Forward Scapula Posture (R) Protracted Arm Posture (R) Internally Rotated PT-OP-K Range of Motion Start: 05/21/20 11:16 Freq: Status: Active Protocol: Document 05/21/20 11:15 HH (Rec: 05/21/20 12:25 [email or web address]) Cervical Spine Range of Motion Cervical Spine Active Degrees Rotation Left 48 Rotation Right 47 ROM Limitations Soft Tissue Tightness Comments flexion chin to sternum Shoulder Goniometric Range of Motion Shoulder Right Active Shoulder ROM WFL Yes Testing Position Standing Flexion 175 Extension 45 Abduction 170 External Rotation at 90 degrees 90 Abduction Internal Rotation 90 Left Active Shoulder ROM WFL Yes Testing Position Standing Flexion 155 Extension 45 Abduction 170 External Rotation at 90 degrees 65 Abduction Internal Rotation 70 Shoulder ROM Limitations Shoulder ROM Limitations Pain Comments significant pain at L anterior shoulder with supine ER painful arc noted at abd 90 and flexion 90 degrees PT-OP-L Special Tests Start: 05/21/20 11:16 Freq: Status: Active Protocol: Document 05/21/20 11:15 HH (Rec: 05/21/20 12:25 [email or web address]) Special Tests Shoulder Special Tests Quintero Sherman Impingement Test Results pain at B side L>R Neer Impingement Test Results pain at B side L>R Apprehension Test Test Results positive B side Comments pain reduced with post mob on L Empty Can Test Results pain at B side Elevation Impingement Test Results pain at B side Drop Arm Rotator Cuff Test Results B -ve AC Joint Compression Test Results Pain at L side PT-OP-M Strength Start: 05/21/20 11:16 Freq: Status: Active Protocol: Document 05/21/20 11:15 HH (Rec: 05/21/20 12:25 [email or web address]) Shoulder Strength Shoulder Manual Muscle Testing Right Flexion 4+ Good+ Extension 4+ Good+ Abduction (C5) 4+ Good+ External Rotation 4 Good Internal Rotation 4+ Good+ Left Flexion 4 Good Extension 4+ Good+ Abduction (C5) 4- Good- Adduction 4+ Good+ External Rotation 4- Good- Internal Rotation 4+ Good+ Comments pain with abd, flex and ER PT-OP-Q Treatments Start: 05/21/20 11:16 Freq: Status: Active Protocol: Document 06/10/20 09:50 HH (Rec: 06/10/20 10:34 HH [id number]) Therapeutic Exercises Sidelying Exercises scao hor abd Side left Reps/Minutes 8 x2 Comments cues on scap retraction. open book Sidelying Exercise Name arm at 120 degrees flexion Side bilateral Reps/Minutes 10 x2 Comments pt feels the stretch Sitting Exercises seated Sitting Exercise Name thoracic fleixon and extension Side bilateral Reps/Minutes 12 x 2 Comments hands behind head Standing Exercises scap squeeze and ext Side bilateral Equipment Used PVC pipe Reps/Minutes 8 x2 Comments scap squeeze then shd extension tennis ball release Standing Exercise Name on pecs Side left Equipment Used tennis ball Reps/Minutes 2 mins Comments against door frame door stretch Standing Exercise Name on L , after tennis ball release Side left Equipment Used tennis ball Reps/Minutes 8 x2 Comments pain reduced after tennis ball release, able to feel the stretch after. Manual Therapy Treatment Soft Tissue Mobilization RTC Body Location infraspinatus, teres minor Mobilization Type Myofascial Release,Sustained Pressure,Trigger Point Release Intensity/Depth Moderate Body Position Supine Comments significant tenderness noted L >R PECs Body Location B pecs Mobilization Type Myofascial Release,Sustained Pressure,Trigger Point Release Intensity/Depth Moderate Body Position Supine Comments significant tenderness noted L >R Joint Mobilizations Glenohumeral Joint B GH Direction A->P Grade III Body Position Supine Comments no pain for ER on L side with post glide. PT-OP-T Assessment and Plan Start: 05/21/20 11:16 Freq: Status: Active Protocol: Document 06/10/20 09:50 HH (Rec: 06/10/20 10:34 HH [id number]) Physical Therapy Assessment Goals strength Impairment Pt has overall shoulder strength loss Technical Specialist Cytology Goal (LTG) Pt will show 1 full MMT grade strength grade for both shoulders so she participate yoga and swimming related exercises. LTG Duration 8 weeks pain Impairment pt has pain for overhead movements and reaching her back Custodial Goal (LTG) Pt will be pain free for overhead and reaching her back related movements so she aliza / doff clothes LTG Duration 8 weeks Quickdash Impairment pt scores 29.54 Technical Specialist Cytology Goal (LTG) Pt will score 20 or below for Quickdash to improve her qualify of life LTG Duration 8weeks Assessment Summary Assessment Pt shows improvements overall with less pain especially her R side. Her L side has been somewhat irritating from last night while she was reaching to the side. This session focused on using tennis ball to self massage on L pec followed by pec stretch. Pt was able to feel the stretch after instead of pain. Physical Therapy Plan Next Visit Focus/Plan Next Note Type Treatment Note Next Visit Plan review HEP manual on pecs, RTC infraspinatus, trunk extension with foam roller post glide of GHJ open book for pec and rotation scap squeeze pec stretch, tennis ball hor abd
--- NOTE | 2020-06-14 11:18 | PT.OTN ---
Current Diagnoses Fistula, right shoulder (06/14/20) Pain in left shoulder (06/14/20) Pain in right hip (06/14/20) Pain in left hip (06/14/20) Physical Therapy Treatment Note PT-OP-A Visit Information Start: 05/21/20 11:16 Freq: Status: Active Protocol: Document 06/14/20 10:30 DCW (Rec: 06/14/20 11:18 DCW [id number]) Out-Patient Physical Therapy Visit Information Visit Information Visit Type Treatment Note Visit Start Time 10:30 Visit Stop Time 11:15 Total Visit Minutes 45 Visit Number 6 Number of COMPUTER AIDED DESIGN TECHNICIAN Visits 0 PT-OP-B Current Condition Start: 05/21/20 11:16 Freq: Status: Active Protocol: Document 05/21/20 11:15 HH (Rec: 05/21/20 12:25 HH [email or web address]) Current Condition History of Current Condition Onset Date November, Current Complaints Bilateral shoulder pain L >R, unable to reach behind her back and lift History of Current Condition Pt is a 59yo female here for bilateral shoulder pain L worse than R since November this year. Pt reports her pain started after she went for yoga and swimming class. Pain is achy and pinching at the anterior part of shoulder joints all the time and her pain has been getting worse every since then. She currently has difficulty reaching her back to aliza/doff her bra, washing her back and pull her pants up d/t pain. Pt is a side sleeper and her shoulder pain also affects her sleep that wakes her up couple times during the night. Pt has tried snow layton stretching ex but that one hurts a lot but did feel helpful later of the day. Treatment Goals Patient/Caregiver Goals 1. to be pain free for both shoulders for functional activities. Prior Functional Status Baseline Function- ADL's Independent Baseline Function- Mobility Independent Baseline Function- Recreation/Hobbies yoga and swimming without shoulder pain Current Functional Impairments (Reported) Functional Limitations- ADL's difficulty aliza/doff her bra and shirts difficulty pulling up her pants Personal Factors Other Personal Factors That May Effect DMII Therapy/Recovery HTN PT-OP-C Subjective Start: 05/21/20 11:16 Freq: Status: Active Protocol: Document 06/14/20 10:30 DCW (Rec: 06/14/20 11:18 DCW [id number]) OP-PT Subjective Patient Comments Patient Comments I'm doing my exercises every day. I think my right side is doing good, but I'm still having problems with the left. It just takes a random movement, and it'll zing me. PT-OP-E Functional Tests Start: 05/21/20 11:16 Freq: Status: Active Protocol: Document 05/21/20 11:15 HH (Rec: 05/21/20 12:25 [email or web address]) Functional Tests Apley's Scratch Test Action 2- Left R scap spine but painful at midrange Action 2- Right L scap spine without pain Action 3- Left R L1 TP with pain for the whole range Action 3- Right T10 with pain at end range PT-OP-F Manual Assessment Start: 05/21/20 11:16 Freq: Status: Active Protocol: Document 05/21/20 11:15 HH (Rec: 05/21/20 12:25 [email or web address]) Manual Assessments Soft Tissue Assessment Soft Tissue Mobility Assessment singificant tenderness to press at Pecs L worse than R, Infraspinatus and teres minor PT-OP-J Posture/Palpation/Skin Start: 05/21/20 11:16 Freq: Status: Active Protocol: Document 05/21/20 11:15 HH (Rec: 05/21/20 12:25 [email or web address]) Posture Evaluation Position Standing Head/C-Spine Posture Forward Head T-Spine Posture Increased Kyphosis L-Spine Posture Increased Lordosis Shoulder Posture (L) Rounded,(R) Rounded,(L) Forward,(R) Forward Scapula Posture (R) Protracted Arm Posture (R) Internally Rotated PT-OP-K Range of Motion Start: 05/21/20 11:16 Freq: Status: Active Protocol: Document 05/21/20 11:15 HH (Rec: 05/21/20 12:25 [email or web address]) Cervical Spine Range of Motion Cervical Spine Active Degrees Rotation Left 48 Rotation Right 47 ROM Limitations Soft Tissue Tightness Comments flexion chin to sternum Shoulder Goniometric Range of Motion Shoulder Right Active Shoulder ROM WFL Yes Testing Position Standing Flexion 175 Extension 45 Abduction 170 External Rotation at 90 degrees 90 Abduction Internal Rotation 90 Left Active Shoulder ROM WFL Yes Testing Position Standing Flexion 155 Extension 45 Abduction 170 External Rotation at 90 degrees 65 Abduction Internal Rotation 70 Shoulder ROM Limitations Shoulder ROM Limitations Pain Comments significant pain at L anterior shoulder with supine ER painful arc noted at abd 90 and flexion 90 degrees PT-OP-L Special Tests Start: 05/21/20 11:16 Freq: Status: Active Protocol: Document 05/21/20 11:15 HH (Rec: 05/21/20 12:25 HH [email or web address]) Special Tests Shoulder Special Tests Quintero Sherman Impingement Test Results pain at B side L>R Neer Impingement Test Results pain at B side L>R Apprehension Test Test Results positive B side Comments pain reduced with post mob on L Empty Can Test Results pain at B side Elevation Impingement Test Results pain at B side Drop Arm Rotator Cuff Test Results B -ve AC Joint Compression Test Results Pain at L side PT-OP-M Strength Start: 05/21/20 11:16 Freq: Status: Active Protocol: Document 05/21/20 11:15 HH (Rec: 05/21/20 12:25 [email or web address]) Shoulder Strength Shoulder Manual Muscle Testing Right Flexion 4+ Good+ Extension 4+ Good+ Abduction (C5) 4+ Good+ External Rotation 4 Good Internal Rotation 4+ Good+ Left Flexion 4 Good Extension 4+ Good+ Abduction (C5) 4- Good- Adduction 4+ Good+ External Rotation 4- Good- Internal Rotation 4+ Good+ Comments pain with abd, flex and ER PT-OP-Q Treatments Start: 05/21/20 11:16 Freq: Status: Active Protocol: Document 06/14/20 10:30 DCW (Rec: 06/14/20 11:18 DCW [id number]) Therapeutic Exercises Supine Exercises PNF D1/D2 Flexion Supine Exercise Name Shoulder PNF D1/D2 Flexion Side bilateral Resistance 0# Shoulder Flexion Supine Exercise Name Shoulder Flexion Side bilateral Resistance 5# Equipment Used PVC Serratus Punch Supine Exercise Name Serratus punch Side bilateral Resistance 5# Equipment Used PVC Sidelying Exercises open book Sidelying Exercise Name arm at 120 degrees flexion Side bilateral Reps/Minutes 10 x2 Comments pt feels the stretch Standing Exercises OH shoulder press Standing Exercise Name Shoulder press Side bilateral Equipment Used PVC Comments pain-free ROM scap squeeze and ext Side bilateral Equipment Used PVC pipe Reps/Minutes 8 x2 Comments scap squeeze then shd extension Manual Therapy Treatment Soft Tissue Mobilization RTC Body Location infraspinatus, teres minor Mobilization Type Myofascial Release,Sustained Pressure,Trigger Point Release Intensity/Depth Moderate Body Position Supine Comments significant tenderness noted L >R PECs Body Location B pecs Mobilization Type Myofascial Release,Sustained Pressure,Trigger Point Release Intensity/Depth Moderate Body Position Supine Comments significant tenderness noted L >R Joint Mobilizations A/C Joint B A/C joint Direction Inferior Grade III Body Position Supine Glenohumeral Joint B GH Direction A->P Grade III Body Position Supine Comments no pain for ER on L side with post glide. PT-OP-T Assessment and Plan Start: 05/21/20 11:16 Freq: Status: Active Protocol: Document 06/14/20 10:30 DCW (Rec: 06/14/20 11:18 DCW [id number]) Physical Therapy Assessment Goals strength Impairment Pt has overall shoulder strength loss Adult Neurologist Goal (LTG) Pt will show 1 full MMT grade strength grade for both shoulders so she participate yoga and swimming related exercises. LTG Duration 8 weeks pain Impairment pt has pain for overhead movements and reaching her back Assisted Goal (LTG) Pt will be pain free for overhead and reaching her back related movements so she aliza / doff clothes LTG Duration 8 weeks Quickdash Impairment pt scores 29.54 Assisted Goal (LTG) Pt will score 20 or below for Quickdash to improve her qualify of life LTG Duration 8weeks Assessment Summary Assessment Pt continues to show improvements in shoulder pain and mobility R>L. Tolerated treatment well today, did have some discomfort with A/C mobs , noting that's right where my problem seems to be. Physical Therapy Plan Frequency and Duration Frequency of Treatment 2x/Week Duration of Treatment 8 weeks Plan of Care Start Date 05/21/20 Plan of Care End Date 07/20/20 Next Visit Focus/Plan Next Note Type Treatment Note Next Visit Plan review HEP manual on pecs, RTC infraspinatus, trunk extension with foam roller post glide of GHJ open book for pec and rotation scap squeeze
--- NOTE | 2020-06-17 09:50 | PT.OTN ---
Current Diagnoses Fistula, right shoulder (06/17/20) Pain in left shoulder (06/17/20) Pain in right hip (06/17/20) Pain in left hip (06/17/20) Physical Therapy Treatment Note PT-OP-A Visit Information Start: 05/21/20 11:16 Freq: Status: Active Protocol: Document 06/17/20 09:05 HH (Rec: 06/17/20 09:50 [id number]) Out-Patient Physical Therapy Visit Information Visit Information Visit Type Treatment Note Visit Start Time 09:05 Visit Stop Time 09:45 Total Visit Minutes 40 Visit Number 7 Number of FLAKE [employer]ER HELPER Visits 0 PT-OP-B Current Condition Start: 05/21/20 11:16 Freq: Status: Active Protocol: Document 05/21/20 11:15 HH (Rec: 05/21/20 12:25 HH [email or web address]) Current Condition History of Current Condition Onset Date November, Current Complaints Bilateral shoulder pain L >R, unable to reach behind her back and lift History of Current Condition Pt is a 59yo female here for bilateral shoulder pain L worse than R since November this year. Pt reports her pain started after she went for yoga and swimming class. Pain is achy and pinching at the anterior part of shoulder joints all the time and her pain has been getting worse every since then. She currently has difficulty reaching her back to aliza/doff her bra, washing her back and pull her pants up d/t pain. Pt is a side sleeper and her shoulder pain also affects her sleep that wakes her up couple times during the night. Pt has tried snow layton stretching ex but that one hurts a lot but did feel helpful later of the day. Treatment Goals Patient/Caregiver Goals 1. to be pain free for both shoulders for functional activities. Prior Functional Status Baseline Function- ADL's Independent Baseline Function- Mobility Independent Baseline Function- Recreation/Hobbies yoga and swimming without shoulder pain Current Functional Impairments (Reported) Functional Limitations- ADL's difficulty aliza/doff her bra and shirts difficulty pulling up her pants Personal Factors Other Personal Factors That May Effect DMII Therapy/Recovery HTN PT-OP-C Subjective Start: 05/21/20 11:16 Freq: Status: Active Protocol: Document 06/17/20 09:05 HH (Rec: 06/17/20 09:50 [id number]) OP-PT Subjective Patient Comments Patient Comments My left shoulder is acting up easily and got that zing pain. My right shoulder continue to do really good. I still have trouble sleeping PT-OP-E Functional Tests Start: 05/21/20 11:16 Freq: Status: Active Protocol: Document 05/21/20 11:15 HH (Rec: 05/21/20 12:25 [email or web address]) Functional Tests Apley's Scratch Test Action 2- Left R scap spine but painful at midrange Action 2- Right L scap spine without pain Action 3- Left R L1 TP with pain for the whole range Action 3- Right T10 with pain at end range PT-OP-F Manual Assessment Start: 05/21/20 11:16 Freq: Status: Active Protocol: Document 05/21/20 11:15 HH (Rec: 05/21/20 12:25 [email or web address]) Manual Assessments Soft Tissue Assessment Soft Tissue Mobility Assessment singificant tenderness to press at Pecs L worse than R, Infraspinatus and teres minor PT-OP-J Posture/Palpation/Skin Start: 05/21/20 11:16 Freq: Status: Active Protocol: Document 05/21/20 11:15 HH (Rec: 05/21/20 12:25 [email or web address]) Posture Evaluation Position Standing Head/C-Spine Posture Forward Head T-Spine Posture Increased Kyphosis L-Spine Posture Increased Lordosis Shoulder Posture (L) Rounded,(R) Rounded,(L) Forward,(R) Forward Scapula Posture (R) Protracted Arm Posture (R) Internally Rotated PT-OP-K Range of Motion Start: 05/21/20 11:16 Freq: Status: Active Protocol: Document 05/21/20 11:15 HH (Rec: 05/21/20 12:25 [email or web address]) Cervical Spine Range of Motion Cervical Spine Active Degrees Rotation Left 48 Rotation Right 47 ROM Limitations Soft Tissue Tightness Comments flexion chin to sternum Shoulder Goniometric Range of Motion Shoulder Right Active Shoulder ROM WFL Yes Testing Position Standing Flexion 175 Extension 45 Abduction 170 External Rotation at 90 degrees 90 Abduction Internal Rotation 90 Left Active Shoulder ROM WFL Yes Testing Position Standing Flexion 155 Extension 45 Abduction 170 External Rotation at 90 degrees 65 Abduction Internal Rotation 70 Shoulder ROM Limitations Shoulder ROM Limitations Pain Comments significant pain at L anterior shoulder with supine ER painful arc noted at abd 90 and flexion 90 degrees PT-OP-L Special Tests Start: 05/21/20 11:16 Freq: Status: Active Protocol: Document 05/21/20 11:15 HH (Rec: 05/21/20 12:25 [email or web address]) Special Tests Shoulder Special Tests Quintero Sherman Impingement Test Results pain at B side L>R Neer Impingement Test Results pain at B side L>R Apprehension Test Test Results positive B side Comments pain reduced with post mob on L Empty Can Test Results pain at B side Elevation Impingement Test Results pain at B side Drop Arm Rotator Cuff Test Results B -ve AC Joint Compression Test Results Pain at L side PT-OP-M Strength Start: 05/21/20 11:16 Freq: Status: Active Protocol: Document 05/21/20 11:15 HH (Rec: 05/21/20 12:25 [email or web address]) Shoulder Strength Shoulder Manual Muscle Testing Right Flexion 4+ Good+ Extension 4+ Good+ Abduction (C5) 4+ Good+ External Rotation 4 Good Internal Rotation 4+ Good+ Left Flexion 4 Good Extension 4+ Good+ Abduction (C5) 4- Good- Adduction 4+ Good+ External Rotation 4- Good- Internal Rotation 4+ Good+ Comments pain with abd, flex and ER PT-OP-Q Treatments Start: 05/21/20 11:16 Freq: Status: Active Protocol: Document 06/17/20 09:05 HH (Rec: 06/17/20 09:50 [id number]) Therapeutic Exercises Sidelying Exercises scao hor abd Side left Reps/Minutes 8 x2 Comments cues on scap retraction. open book Sidelying Exercise Name arm at 120 degrees flexion Side bilateral Reps/Minutes 10 x2 Comments pt feels the stretch Sitting Exercises seated Sitting Exercise Name thoracic fleixon and extension Side bilateral Reps/Minutes 12 x 2 Comments hands behind head Standing Exercises OH ellyn Standing Exercise Name flexion and abduction Side bilateral Reps/Minutes 2 mins each Manual Therapy Treatment Soft Tissue Mobilization bicep tendon Body Location long tendon Mobilization Type Sustained Pressure,Trigger Point Release Intensity/Depth Moderate Body Position Supine Comments significant pain noted today RTC Body Location infraspinatus, teres minor Mobilization Type Myofascial Release,Sustained Pressure,Trigger Point Release Intensity/Depth Moderate Body Position Supine Comments significant tenderness noted L >R PECs Body Location B pecs Mobilization Type Myofascial Release,Sustained Pressure,Trigger Point Release Intensity/Depth Moderate Body Position Supine Comments significant tenderness noted L >R Joint Mobilizations Glenohumeral Joint B GH Direction A->P Grade III Body Position Supine Comments no pain for ER on L side with post glide. PT-OP-T Assessment and Plan Start: 05/21/20 11:16 Freq: Status: Active Protocol: Document 06/17/20 09:05 (Rec: 06/17/20 09:50 [id number]) Physical Therapy Assessment Goals strength Impairment Pt has overall shoulder strength loss Fpc Goal (LTG) Pt will show 1 full MMT grade strength grade for both shoulders so she participate yoga and swimming related exercises. LTG Duration 8 weeks pain Impairment pt has pain for overhead movements and reaching her back Cpht Goal (LTG) Pt will be pain free for overhead and reaching her back related movements so she aliza / doff clothes LTG Duration 8 weeks Quickdash Impairment pt scores 29.54 Fpc Goal (LTG) Pt will score 20 or below for Quickdash to improve her qualify of life LTG Duration 8weeks Assessment Summary Assessment This session focused on manual therapy and scap mobility. Noticed pt's L bicep long tendon is somewhat irritated and needed cues for scap mobility. Pt reports of pain free after educating her to engage scap movement with hor abd. Physical Therapy Plan Next Visit Focus/Plan Next Note Type Treatment Note Next Visit Plan review HEP manual on pecs, RTC infraspinatus, trunk extension with foam roller post glide of GHJ open book for pec and rotation scap squeeze
--- NOTE | 2020-06-24 09:47 | PT.OTN ---
Current Diagnoses Fistula, right shoulder (06/24/20) Pain in left shoulder (06/24/20) Pain in right hip (06/24/20) Pain in left hip (06/24/20) Physical Therapy Treatment Note PT-OP-A Visit Information Start: 05/21/20 11:16 Freq: Status: Active Protocol: Document 06/24/20 09:03 HH (Rec: 06/24/20 09:47 HH [id number]) Out-Patient Physical Therapy Visit Information Visit Information Visit Type Treatment Note Visit Start Time 09:03 Visit Stop Time 09:45 Total Visit Minutes 42 Visit Number 8 Number of HAND PATTERN MARKER Visits 0 PT-OP-B Current Condition Start: 05/21/20 11:16 Freq: Status: Active Protocol: Document 05/21/20 11:15 HH (Rec: 05/21/20 12:25 HH [email or web address]) Current Condition History of Current Condition Onset Date November, Current Complaints Bilateral shoulder pain L >R, unable to reach behind her back and lift History of Current Condition Pt is a 59yo female here for bilateral shoulder pain L worse than R since November this year. Pt reports her pain started after she went for yoga and swimming class. Pain is achy and pinching at the anterior part of shoulder joints all the time and her pain has been getting worse every since then. She currently has difficulty reaching her back to aliza/doff her bra, washing her back and pull her pants up d/t pain. Pt is a side sleeper and her shoulder pain also affects her sleep that wakes her up couple times during the night. Pt has tried snow layton stretching ex but that one hurts a lot but did feel helpful later of the day. Treatment Goals Patient/Caregiver Goals 1. to be pain free for both shoulders for functional activities. Prior Functional Status Baseline Function- ADL's Independent Baseline Function- Mobility Independent Baseline Function- Recreation/Hobbies yoga and swimming without shoulder pain Current Functional Impairments (Reported) Functional Limitations- ADL's difficulty aliza/doff her bra and shirts difficulty pulling up her pants Personal Factors Other Personal Factors That May Effect DMII Therapy/Recovery HTN PT-OP-C Subjective Start: 05/21/20 11:16 Freq: Status: Active Protocol: Document 06/24/20 09:03 HH (Rec: 06/24/20 09:47 HH [id number]) OP-PT Subjective Patient Comments Patient Comments Everything is doing good especially after last visit on that we worked on my L biceps and it felt great after . But i felt like a pop on Sat while reaching forward but it went back after. It felt fine on wednesday. Patient Reported Progress Improving PT-OP-E Functional Tests Start: 05/21/20 11:16 Freq: Status: Active Protocol: Document 05/21/20 11:15 HH (Rec: 05/21/20 12:25 [email or web address]) Functional Tests Apley's Scratch Test Action 2- Left R scap spine but painful at midrange Action 2- Right L scap spine without pain Action 3- Left R L1 TP with pain for the whole range Action 3- Right T10 with pain at end range PT-OP-F Manual Assessment Start: 05/21/20 11:16 Freq: Status: Active Protocol: Document 05/21/20 11:15 HH (Rec: 05/21/20 12:25 [email or web address]) Manual Assessments Soft Tissue Assessment Soft Tissue Mobility Assessment singificant tenderness to press at Pecs L worse than R, Infraspinatus and teres minor PT-OP-J Posture/Palpation/Skin Start: 05/21/20 11:16 Freq: Status: Active Protocol: Document 05/21/20 11:15 HH (Rec: 05/21/20 12:25 [email or web address]) Posture Evaluation Position Standing Head/C-Spine Posture Forward Head T-Spine Posture Increased Kyphosis L-Spine Posture Increased Lordosis Shoulder Posture (L) Rounded,(R) Rounded,(L) Forward,(R) Forward Scapula Posture (R) Protracted Arm Posture (R) Internally Rotated PT-OP-K Range of Motion Start: 05/21/20 11:16 Freq: Status: Active Protocol: Document 05/21/20 11:15 HH (Rec: 05/21/20 12:25 [email or web address]) Cervical Spine Range of Motion Cervical Spine Active Degrees Rotation Left 48 Rotation Right 47 ROM Limitations Soft Tissue Tightness Comments flexion chin to sternum Shoulder Goniometric Range of Motion Shoulder Right Active Shoulder ROM WFL Yes Testing Position Standing Flexion 175 Extension 45 Abduction 170 External Rotation at 90 degrees 90 Abduction Internal Rotation 90 Left Active Shoulder ROM WFL Yes Testing Position Standing Flexion 155 Extension 45 Abduction 170 External Rotation at 90 degrees 65 Abduction Internal Rotation 70 Shoulder ROM Limitations Shoulder ROM Limitations Pain Comments significant pain at L anterior shoulder with supine ER painful arc noted at abd 90 and flexion 90 degrees PT-OP-L Special Tests Start: 05/21/20 11:16 Freq: Status: Active Protocol: Document 05/21/20 11:15 (Rec: 05/21/20 12:25 [email or web address]) Special Tests Shoulder Special Tests Quintero Sherman Impingement Test Results pain at B side L>R Neer Impingement Test Results pain at B side L>R Apprehension Test Test Results positive B side Comments pain reduced with post mob on L Empty Can Test Results pain at B side Elevation Impingement Test Results pain at B side Drop Arm Rotator Cuff Test Results B -ve AC Joint Compression Test Results Pain at L side PT-OP-M Strength Start: 05/21/20 11:16 Freq: Status: Active Protocol: Document 05/21/20 11:15 (Rec: 05/21/20 12:25 [email or web address]) Shoulder Strength Shoulder Manual Muscle Testing Right Flexion 4+ Good+ Extension 4+ Good+ Abduction (C5) 4+ Good+ External Rotation 4 Good Internal Rotation 4+ Good+ Left Flexion 4 Good Extension 4+ Good+ Abduction (C5) 4- Good- Adduction 4+ Good+ External Rotation 4- Good- Internal Rotation 4+ Good+ Comments pain with abd, flex and ER PT-OP-Q Treatments Start: 05/21/20 11:16 Freq: Status: Active Protocol: Document 06/24/20 09:03 (Rec: 06/24/20 09:47 [id number]) Therapeutic Exercises Supine Exercises Serratus Punch Supine Exercise Name Serratus punch Side bilateral Resistance 3.3 ball Sidelying Exercises abd Sidelying Exercise Name to 90 degrees Side left Equipment Used 1lb DB Reps/Minutes 8 x2 Comments pain noted at first 2 reps scao hor abd Side bilateral Reps/Minutes 12 x2 Comments cues on scap retraction. open book Sidelying Exercise Name arm at 120 degrees flexion Side bilateral Reps/Minutes 10 x2 Comments pt feels the stretch Manual Therapy Treatment Soft Tissue Mobilization bicep tendon Body Location long tendon Mobilization Type Sustained Pressure,Trigger Point Release Intensity/Depth Moderate Body Position Supine Comments significant pain noted today Joint Mobilizations Glenohumeral Joint B GH Direction A->P Grade III Body Position Supine Comments no pain for ER on L side with post glide. PT-OP-T Assessment and Plan Start: 05/21/20 11:16 Freq: Status: Active Protocol: Document 06/24/20 09:03 (Rec: 06/24/20 09:47 [id number]) Physical Therapy Assessment Goals strength Impairment Pt has overall shoulder strength loss [employer] E[employer]ing Goal (LTG) Pt will show 1 full MMT grade strength grade for both shoulders so she participate yoga and swimming related exercises. LTG Duration 8 weeks pain Impairment pt has pain for overhead movements and reaching her back [employer] E[employer]ing Goal (LTG) Pt will be pain free for overhead and reaching her back related movements so she aliza / doff clothes LTG Duration 8 weeks Quickdash Impairment pt scores 29.54 Assisted Goal (LTG) Pt will score 20 or below for Quickdash to improve her qualify of life LTG Duration 8weeks Assessment Summary Assessment tenderness to L bicep has improved since last visit. Pt shows improved scap control and ROM of Lshoulder. Pt stated her R shoulder is 80 % better and 60 % for L shoulder . Physical Therapy Plan Next Visit Focus/Plan Next Note Type Treatment Note Next Visit Plan review HEP manual on pecs, RTC infraspinatus, trunk extension with foam roller post glide of GHJ open book for pec and rotation scap squeeze hor abd SL abd
--- NOTE | 2020-06-27 09:46 | PT.OTN ---
Current Diagnoses Fistula, right shoulder (06/27/20) Pain in left shoulder (06/27/20) Pain in right hip (06/27/20) Pain in left hip (06/27/20) Physical Therapy Treatment Note PT-OP-A Visit Information Start: 05/21/20 11:16 Freq: Status: Active Protocol: Document 06/27/20 09:02 HH (Rec: 06/27/20 09:46 [id number]) Out-Patient Physical Therapy Visit Information Visit Information Visit Type Treatment Note Visit Start Time 09:05 Visit Stop Time 09:45 Total Visit Minutes 40 Visit Number 9 Number of [employer] REPRESENTATIVE Visits 0 PT-OP-B Current Condition Start: 05/21/20 11:16 Freq: Status: Active Protocol: Document 05/21/20 11:15 HH (Rec: 05/21/20 12:25 HH [email or web address]) Current Condition History of Current Condition Onset Date November, Current Complaints Bilateral shoulder pain L >R, unable to reach behind her back and lift History of Current Condition Pt is a 59yo female here for bilateral shoulder pain L worse than R since November this year. Pt reports her pain started after she went for yoga and swimming class. Pain is achy and pinching at the anterior part of shoulder joints all the time and her pain has been getting worse every since then. She currently has difficulty reaching her back to aliza/doff her bra, washing her back and pull her pants up d/t pain. Pt is a side sleeper and her shoulder pain also affects her sleep that wakes her up couple times during the night. Pt has tried snow layton stretching ex but that one hurts a lot but did feel helpful later of the day. Treatment Goals Patient/Caregiver Goals 1. to be pain free for both shoulders for functional activities. Prior Functional Status Baseline Function- ADL's Independent Baseline Function- Mobility Independent Baseline Function- Recreation/Hobbies yoga and swimming without shoulder pain Current Functional Impairments (Reported) Functional Limitations- ADL's difficulty aliza/doff her bra and shirts difficulty pulling up her pants Personal Factors Other Personal Factors That May Effect DMII Therapy/Recovery HTN PT-OP-C Subjective Start: 05/21/20 11:16 Freq: Status: Active Protocol: Document 06/27/20 09:02 HH (Rec: 06/27/20 09:46 [id number]) OP-PT Subjective Patient Comments Patient Comments My L shoulder feel sore this week and having hard time reaching back. Patient Reported Progress Same PT-OP-E Functional Tests Start: 05/21/20 11:16 Freq: Status: Active Protocol: Document 05/21/20 11:15 (Rec: 05/21/20 12:25 [email or web address]) Functional Tests Apley's Scratch Test Action 2- Left R scap spine but painful at midrange Action 2- Right L scap spine without pain Action 3- Left R L1 TP with pain for the whole range Action 3- Right T10 with pain at end range PT-OP-F Manual Assessment Start: 05/21/20 11:16 Freq: Status: Active Protocol: Document 05/21/20 11:15 HH (Rec: 05/21/20 12:25 [email or web address]) Manual Assessments Soft Tissue Assessment Soft Tissue Mobility Assessment singificant tenderness to press at Pecs L worse than R, Infraspinatus and teres minor PT-OP-J Posture/Palpation/Skin Start: 05/21/20 11:16 Freq: Status: Active Protocol: Document 05/21/20 11:15 (Rec: 05/21/20 12:25 [email or web address]) Posture Evaluation Position Standing Head/C-Spine Posture Forward Head T-Spine Posture Increased Kyphosis L-Spine Posture Increased Lordosis Shoulder Posture (L) Rounded,(R) Rounded,(L) Forward,(R) Forward Scapula Posture (R) Protracted Arm Posture (R) Internally Rotated PT-OP-K Range of Motion Start: 05/21/20 11:16 Freq: Status: Active Protocol: Document 05/21/20 11:15 (Rec: 05/21/20 12:25 [email or web address]) Cervical Spine Range of Motion Cervical Spine Active Degrees Rotation Left 48 Rotation Right 47 ROM Limitations Soft Tissue Tightness Comments flexion chin to sternum Shoulder Goniometric Range of Motion Shoulder Right Active Shoulder ROM WFL Yes Testing Position Standing Flexion 175 Extension 45 Abduction 170 External Rotation at 90 degrees 90 Abduction Internal Rotation 90 Left Active Shoulder ROM WFL Yes Testing Position Standing Flexion 155 Extension 45 Abduction 170 External Rotation at 90 degrees 65 Abduction Internal Rotation 70 Shoulder ROM Limitations Shoulder ROM Limitations Pain Comments significant pain at L anterior shoulder with supine ER painful arc noted at abd 90 and flexion 90 degrees PT-OP-L Special Tests Start: 05/21/20 11:16 Freq: Status: Active Protocol: Document 05/21/20 11:15 HH (Rec: 05/21/20 12:25 [email or web address]) Special Tests Shoulder Special Tests Quintero Sherman Impingement Test Results pain at B side L>R Neer Impingement Test Results pain at B side L>R Apprehension Test Test Results positive B side Comments pain reduced with post mob on L Empty Can Test Results pain at B side Elevation Impingement Test Results pain at B side Drop Arm Rotator Cuff Test Results B -ve AC Joint Compression Test Results Pain at L side PT-OP-M Strength Start: 05/21/20 11:16 Freq: Status: Active Protocol: Document 05/21/20 11:15 HH (Rec: 05/21/20 12:25 [email or web address]) Shoulder Strength Shoulder Manual Muscle Testing Right Flexion 4+ Good+ Extension 4+ Good+ Abduction (C5) 4+ Good+ External Rotation 4 Good Internal Rotation 4+ Good+ Left Flexion 4 Good Extension 4+ Good+ Abduction (C5) 4- Good- Adduction 4+ Good+ External Rotation 4- Good- Internal Rotation 4+ Good+ Comments pain with abd, flex and ER PT-OP-Q Treatments Start: 05/21/20 11:16 Freq: Status: Active Protocol: Document 06/27/20 09:02 (Rec: 06/27/20 09:46 [id number]) Cardio Equipment Upper Body Ergometer (UBE) Duration (Minutes) 5 Other 30 sec backward and forward Therapeutic Exercises Standing Exercises OH ellyn Standing Exercise Name flexion abduction and extension Side bilateral Reps/Minutes 2 mins each Comments slight discomfort at end range Manual Therapy Treatment Soft Tissue Mobilization bicep tendon Body Location long tendon Mobilization Type Sustained Pressure,Trigger Point Release Intensity/Depth Moderate Body Position Supine Comments increased tenderness noted today RTC Body Location infraspinatus, teres minor Mobilization Type Myofascial Release,Sustained Pressure,Trigger Point Release Intensity/Depth Moderate Body Position Supine Comments significant tenderness noted L >R Joint Mobilizations Glenohumeral Joint B GH Direction A->P Grade III Body Position Supine Comments no pain for ER on L side with post glide. PT-OP-T Assessment and Plan Start: 05/21/20 11:16 Freq: Status: Active Protocol: Document 06/27/20 09:02 (Rec: 06/27/20 09:46 [id number]) Physical Therapy Assessment Goals strength Impairment Pt has overall shoulder strength loss Retirement Goal (LTG) Pt will show 1 full MMT grade strength grade for both shoulders so she participate yoga and swimming related exercises. LTG Duration 8 weeks pain Impairment pt has pain for overhead movements and reaching her back Retirement Goal (LTG) Pt will be pain free for overhead and reaching her back related movements so she aliza / doff clothes LTG Duration 8 weeks Quickdash Impairment pt scores 29.54 Computer Systems Design Analyst Goal (LTG) Pt will score 20 or below for Quickdash to improve her qualify of life LTG Duration 8weeks Assessment Summary Assessment Pt L shoulder is irritated for the past few days and pt does not know why. Recommended pt to acquire PREMA ragland for ROM ex at home. Pt did feel better after manual therapy followed by PREMA ragland and UBE. will cont monitor her progress. Physical Therapy Plan Next Visit Focus/Plan Next Note Type Progress Note Next Visit Plan review HEP manual on pecs, RTC infraspinatus, trunk extension with foam roller post glide of J open book for pec and rotation scap squeeze hor abd SL abd
--- NOTE | 2020-07-01 12:03 | PT.OPPN ---
Current Diagnoses Fistula, right shoulder (07/01/20) Pain in left shoulder (07/01/20) Pain in right hip (07/01/20) Pain in left hip (07/01/20) Physical Therapy Progress Note PT-OP-A Visit Information Start: 05/21/20 11:16 Freq: Status: Active Protocol: Document 07/01/20 09:00 HH (Rec: 07/01/20 09:49 [id number]) Out-Patient Physical Therapy Visit Information Visit Information Visit Type Progress Note Visit Start Time 09:00 Visit Stop Time 09:45 Total Visit Minutes 45 Visit Number 10 Number of MANAGER CLINICAL APPLICATIONS Visits 0 PT-OP-B Current Condition Start: 05/21/20 11:16 Freq: Status: Active Protocol: Document 05/21/20 11:15 HH (Rec: 05/21/20 12:25 HH [email or web address]) Current Condition History of Current Condition Onset Date November, Current Complaints Bilateral shoulder pain L >R, unable to reach behind her back and lift History of Current Condition Pt is a 59yo female here for bilateral shoulder pain L worse than R since November this year. Pt reports her pain started after she went for yoga and swimming class. Pain is achy and pinching at the anterior part of shoulder joints all the time and her pain has been getting worse every since then. She currently has difficulty reaching her back to aliza/doff her bra, washing her back and pull her pants up d/t pain. Pt is a side sleeper and her shoulder pain also affects her sleep that wakes her up couple times during the night. Pt has tried snow layton stretching ex but that one hurts a lot but did feel helpful later of the day. Treatment Goals Patient/Caregiver Goals 1. to be pain free for both shoulders for functional activities. Prior Functional Status Baseline Function- ADL's Independent Baseline Function- Mobility Independent Baseline Function- Recreation/Hobbies yoga and swimming without shoulder pain Current Functional Impairments (Reported) Functional Limitations- ADL's difficulty aliza/doff her bra and shirts difficulty pulling up her pants Personal Factors Other Personal Factors That May Effect DMII Therapy/Recovery HTN PT-OP-C Subjective Start: 05/21/20 11:16 Freq: Status: Active Protocol: Document 07/01/20 09:00 HH (Rec: 07/01/20 09:49 [email or web address]) OP-PT Subjective Patient Comments Patient Comments My L shoulder is still bothering me but R arm is doing good. I ordered a overhead ellyn and i will get that today. PT-OP-E Functional Tests Start: 05/21/20 11:16 Freq: Status: Active Protocol: Document 05/21/20 11:15 HH (Rec: 05/21/20 12:25 [email or web address]) Functional Tests Apley's Scratch Test Action 1: The subject is instructed to touch the opposite shoulder with his/her hand. This motion checks Glenohumeral adduction, internal rotation , horizontal adduction and scapular protraction Action 2: The subject is instructed to place his/her arm overhead and reach behind the neck to touch his/her upper back. This motion checks Glenohumeral abduction, external rotation and scapular upward rotation and elevation. Action 3: The subject puts his/her hand on the lower back and reaches upward as far as possible. This motion checks glenohumeral adduction, internal rotation and scapular retraction with downward rotation Action 2- Left R scap spine but painful at midrange Action 2- Right L scap spine without pain Action 3- Left R L1 TP with pain for the whole range Action 3- Right T10 with pain at end range PT-OP-F Manual Assessment Start: 05/21/20 11:16 Freq: Status: Active Protocol: Document 05/21/20 11:15 HH (Rec: 05/21/20 12:25 [email or web address]) Manual Assessments Soft Tissue Assessment Soft Tissue Mobility Assessment singificant tenderness to press at Pecs L worse than R, Infraspinatus and teres minor PT-OP-J Posture/Palpation/Skin Start: 05/21/20 11:16 Freq: Status: Active Protocol: Document 05/21/20 11:15 HH (Rec: 05/21/20 12:25 [email or web address]) Posture Evaluation Position Standing Head/C-Spine Posture Forward Head T-Spine Posture Increased Kyphosis L-Spine Posture Increased Lordosis Shoulder Posture (L) Rounded,(R) Rounded,(L) Forward,(R) Forward Scapula Posture (R) Protracted Arm Posture (R) Internally Rotated PT-OP-K Range of Motion Start: 05/21/20 11:16 Freq: Status: Active Protocol: Document 05/21/20 11:15 (Rec: 05/21/20 12:25 [email or web address]) Cervical Spine Range of Motion Cervical Spine Active Degrees Rotation Left 48 Rotation Right 47 ROM Limitations Soft Tissue Tightness Comments flexion chin to sternum Shoulder Goniometric Range of Motion Shoulder Measured in Degrees Right Active Shoulder ROM WFL Yes Testing Position Standing Flexion 175 Extension 45 Abduction 170 External Rotation at 90 degrees 90 Abduction Internal Rotation 90 Left Active Shoulder ROM WFL Yes Testing Position Standing Flexion 155 Extension 45 Abduction 170 External Rotation at 90 degrees 65 Abduction Internal Rotation 70 Shoulder ROM Limitations Shoulder ROM Limitations Pain Comments significant pain at L anterior shoulder with supine ER painful arc noted at abd 90 and flexion 90 degrees PT-OP-L Special Tests Start: 05/21/20 11:16 Freq: Status: Active Protocol: Document 05/21/20 11:15 (Rec: 05/21/20 12:25 [email or web address]) Special Tests Shoulder Special Tests Quintero Sherman Impingement Test Results pain at B side L>R Neer Impingement Test Results pain at B side L>R Apprehension Test Test Results positive B side Comments pain reduced with post mob on L Empty Can Test Results pain at B side Elevation Impingement Test Results pain at B side Drop Arm Rotator Cuff Test Results B -ve AC Joint Compression Test Results Pain at L side PT-OP-M Strength Start: 05/21/20 11:16 Freq: Status: Active Protocol: Document 05/21/20 11:15 (Rec: 05/21/20 12:25 [email or web address]) Shoulder Strength Shoulder Manual Muscle Testing Right Flexion 4+ Good+ Extension 4+ Good+ Abduction (C5) 4+ Good+ External Rotation 4 Good Internal Rotation 4+ Good+ Left Flexion 4 Good Extension 4+ Good+ Abduction (C5) 4- Good- Adduction 4+ Good+ External Rotation 4- Good- Internal Rotation 4+ Good+ Comments pain with abd, flex and ER PT-OP-T Assessment and Plan Start: 05/21/20 11:16 Freq: Status: Active Protocol: Document 07/01/20 09:00 (Rec: 07/01/20 09:49 [id number]) Physical Therapy Assessment Goals strength Impairment Pt has overall shoulder strength loss Short Term Goal (STG) 8/10 R side reached full muscle strength L side is 4-/5, 3+ for ER and flexion Stone And Plate Preparer Apprentice Goal (LTG) Pt will show 1 full MMT grade strength grade for both shoulders so she participate yoga and swimming related exercises. LTG Duration 8 weeks pain Impairment pt has pain for overhead movements and reaching her back Short Term Goal (STG) 07/01 cont in progress, painfree for R shoulder for OH and reaching back movements L UE up to PSIS with pain Stone And Plate Preparer Apprentice Goal (LTG) Pt will be pain free for overhead and reaching her back related movements so she aliza / doff clothes LTG Duration 8 weeks Quickdash Impairment pt scores 29.54 [facility] Goal (LTG) Pt will score 20 or below for Quickdash to improve her qualify of life LTG Duration 8weeks Assessment Summary Assessment Pt showed improved shoulder strength on R side and improved ROM in painfree. Her L shoulde does show improved reaching behind back ROM after STM. Less discomfort noted with cues on scap retraction while reaching her back for L. Rec pt to practice OH ellyn and reaching behind back with PVC for HEP ex. Physical Therapy Plan Next Visit Focus/Plan Next Note Type Treatment Note Next Visit Plan review HEP manual on pecs, RTC infraspinatus, trunk extension with foam roller post glide of GHJ open book for pec and rotation scap squeeze hor abd SL abd
--- NOTE | 2020-07-04 09:50 | PT.OTN ---
Current Diagnoses Fistula, right shoulder (07/04/20) Pain in left shoulder (07/04/20) Pain in right hip (07/04/20) Pain in left hip (07/04/20) Physical Therapy Treatment Note PT-OP-A Visit Information Start: 05/21/20 11:16 Freq: Status: Active Protocol: Document 07/04/20 09:04 HH (Rec: 07/04/20 09:50 [id number]) Out-Patient Physical Therapy Visit Information Visit Information Visit Type Treatment Note Visit Start Time 09:04 Visit Stop Time 09:45 Total Visit Minutes 41 Visit Number 11 Number of PARTS ADVISOR Visits 0 PT-OP-B Current Condition Start: 05/21/20 11:16 Freq: Status: Active Protocol: Document 05/21/20 11:15 HH (Rec: 05/21/20 12:25 HH [email or web address]) Current Condition History of Current Condition Onset Date November, Current Complaints Bilateral shoulder pain L >R, unable to reach behind her back and lift History of Current Condition Pt is a 59yo female here for bilateral shoulder pain L worse than R since November this year. Pt reports her pain started after she went for yoga and swimming class. Pain is achy and pinching at the anterior part of shoulder joints all the time and her pain has been getting worse every since then. She currently has difficulty reaching her back to aliza/doff her bra, washing her back and pull her pants up d/t pain. Pt is a side sleeper and her shoulder pain also affects her sleep that wakes her up couple times during the night. Pt has tried snow layton stretching ex but that one hurts a lot but did feel helpful later of the day. Treatment Goals Patient/Caregiver Goals 1. to be pain free for both shoulders for functional activities. Prior Functional Status Baseline Function- ADL's Independent Baseline Function- Mobility Independent Baseline Function- Recreation/Hobbies yoga and swimming without shoulder pain Current Functional Impairments (Reported) Functional Limitations- ADL's difficulty aliza/doff her bra and shirts difficulty pulling up her pants Personal Factors Other Personal Factors That May Effect DMII Therapy/Recovery HTN PT-OP-C Subjective Start: 05/21/20 11:16 Freq: Status: Active Protocol: Document 07/04/20 09:04 HH (Rec: 07/04/20 09:50 [id number]) OP-PT Subjective Patient Comments Patient Comments I just got my overhead ellyn and i have been using it. Patient Reported Progress Improving PT-OP-E Functional Tests Start: 05/21/20 11:16 Freq: Status: Active Protocol: Document 05/21/20 11:15 (Rec: 05/21/20 12:25 [email or web address]) Functional Tests Apley's Scratch Test Action 2- Left R scap spine but painful at midrange Action 2- Right L scap spine without pain Action 3- Left R L1 TP with pain for the whole range Action 3- Right T10 with pain at end range PT-OP-F Manual Assessment Start: 05/21/20 11:16 Freq: Status: Active Protocol: Document 05/21/20 11:15 HH (Rec: 05/21/20 12:25 [email or web address]) Manual Assessments Soft Tissue Assessment Soft Tissue Mobility Assessment singificant tenderness to press at Pecs L worse than R, Infraspinatus and teres minor PT-OP-J Posture/Palpation/Skin Start: 05/21/20 11:16 Freq: Status: Active Protocol: Document 05/21/20 11:15 HH (Rec: 05/21/20 12:25 [email or web address]) Posture Evaluation Position Standing Head/C-Spine Posture Forward Head T-Spine Posture Increased Kyphosis L-Spine Posture Increased Lordosis Shoulder Posture (L) Rounded,(R) Rounded,(L) Forward,(R) Forward Scapula Posture (R) Protracted Arm Posture (R) Internally Rotated PT-OP-K Range of Motion Start: 05/21/20 11:16 Freq: Status: Active Protocol: Document 05/21/20 11:15 (Rec: 05/21/20 12:25 [email or web address]) Cervical Spine Range of Motion Cervical Spine Active Degrees Rotation Left 48 Rotation Right 47 ROM Limitations Soft Tissue Tightness Comments flexion chin to sternum Shoulder Goniometric Range of Motion Shoulder Right Active Shoulder ROM WFL Yes Testing Position Standing Flexion 175 Extension 45 Abduction 170 External Rotation at 90 degrees 90 Abduction Internal Rotation 90 Left Active Shoulder ROM WFL Yes Testing Position Standing Flexion 155 Extension 45 Abduction 170 External Rotation at 90 degrees 65 Abduction Internal Rotation 70 Shoulder ROM Limitations Shoulder ROM Limitations Pain Comments significant pain at L anterior shoulder with supine ER painful arc noted at abd 90 and flexion 90 degrees PT-OP-L Special Tests Start: 05/21/20 11:16 Freq: Status: Active Protocol: Document 05/21/20 11:15 HH (Rec: 05/21/20 12:25 [email or web address]) Special Tests Shoulder Special Tests Quintero Sherman Impingement Test Results pain at B side L>R Neer Impingement Test Results pain at B side L>R Apprehension Test Test Results positive B side Comments pain reduced with post mob on L Empty Can Test Results pain at B side Elevation Impingement Test Results pain at B side Drop Arm Rotator Cuff Test Results B -ve AC Joint Compression Test Results Pain at L side PT-OP-M Strength Start: 05/21/20 11:16 Freq: Status: Active Protocol: Document 05/21/20 11:15 HH (Rec: 05/21/20 12:25 [email or web address]) Shoulder Strength Shoulder Manual Muscle Testing Right Flexion 4+ Good+ Extension 4+ Good+ Abduction (C5) 4+ Good+ External Rotation 4 Good Internal Rotation 4+ Good+ Left Flexion 4 Good Extension 4+ Good+ Abduction (C5) 4- Good- Adduction 4+ Good+ External Rotation 4- Good- Internal Rotation 4+ Good+ Comments pain with abd, flex and ER PT-OP-Q Treatments Start: 05/21/20 11:16 Freq: Status: Active Protocol: Document 07/04/20 09:04 HH (Rec: 07/04/20 09:50 [id number]) Therapeutic Exercises Sidelying Exercises abd Side left Equipment Used 2# DB Reps/Minutes 8x1 SL ER Side left Equipment Used #1 DB Reps/Minutes 8 x 2 Comments pain at anterior shoulder, but subside with half ROM Standing Exercises shd ext with IR Standing Exercise Name lift off and reach behind back Side bilateral Equipment Used with PVC pipe Comments less discomfort noted with retraction shd extension Side bilateral Equipment Used with PVC pipe Comments less discomfort with scap retraction OH shoulder press Standing Exercise Name with PVC Side bilateral Comments less discomfort with repetitions OH ellyn Standing Exercise Name flexion abduction and extension Side bilateral Reps/Minutes 2 mins each Comments slight discomfort at end range Manual Therapy Treatment Soft Tissue Mobilization lats Intensity/Depth Moderate Body Position Sidelying Comments L lats bicep tendon Body Location long tendon Mobilization Type Sustained Pressure,Trigger Point Release Intensity/Depth Moderate Body Position Supine Comments increased tenderness noted today PT-OP-T Assessment and Plan Start: 05/21/20 11:16 Freq: Status: Active Protocol: Document 07/04/20 09:04 (Rec: 07/04/20 09:50 [id number]) Physical Therapy Assessment Goals strength Impairment Pt has overall shoulder strength loss Short Term Goal (STG) 810 R side reached full muscle strength L side is 4-/5, 3+ for ER and flexion [facility] Goal (LTG) Pt will show 1 full MMT grade strength grade for both shoulders so she participate yoga and swimming related exercises. LTG Duration 8 weeks pain Impairment pt has pain for overhead movements and reaching her back Short Term Goal (STG) 810 cont in progress, painfree for R shoulder for OH and reaching back movements L UE up to PSIS with pain Wholesale Diamond Broker Goal (LTG) Pt will be pain free for overhead and reaching her back related movements so she aliza / doff clothes LTG Duration 8 weeks Quickdash Impairment pt scores 29.54 [facility] Goal (LTG) Pt will score 20 or below for Quickdash to improve her qualify of life LTG Duration 8weeks Assessment Summary Assessment Pt has improved shoulder extension and abd/ flexion today. Reaching behind her band is still the most difficulty. Added SL ER and PVC exercise. Physical Therapy Plan Next Visit Focus/Plan Next Note Type Treatment Note Next Visit Plan review HEP manual on pecs, RTC infraspinatus, trunk extension with foam roller post glide of J open book for pec and rotation scap squeeze hor abd SL abd
--- NOTE | 2020-07-08 09:54 | PT.OTN ---
Current Diagnoses Fistula, right shoulder (07/08/20) Pain in left shoulder (07/08/20) Pain in right hip (07/08/20) Pain in left hip (07/08/20) Physical Therapy Treatment Note PT-OP-A Visit Information Start: 05/21/20 11:16 Freq: Status: Active Protocol: Document 07/08/20 09:07 HH (Rec: 07/08/20 09:54 [id number]) Out-Patient Physical Therapy Visit Information Visit Information Visit Type Treatment Note Visit Start Time 09:04 Visit Stop Time 09:46 Total Visit Minutes 42 Visit Number 12 Number of NEWS PRODUCTION ASSISTANT Visits 0 PT-OP-B Current Condition Start: 05/21/20 11:16 Freq: Status: Active Protocol: Document 05/21/20 11:15 HH (Rec: 05/21/20 12:25 HH [email or web address]) Current Condition History of Current Condition Onset Date November, Current Complaints Bilateral shoulder pain L >R, unable to reach behind her back and lift History of Current Condition Pt is a 59yo female here for bilateral shoulder pain L worse than R since November this year. Pt reports her pain started after she went for yoga and swimming class. Pain is achy and pinching at the anterior part of shoulder joints all the time and her pain has been getting worse every since then. She currently has difficulty reaching her back to aliza/doff her bra, washing her back and pull her pants up d/t pain. Pt is a side sleeper and her shoulder pain also affects her sleep that wakes her up couple times during the night. Pt has tried snow layton stretching ex but that one hurts a lot but did feel helpful later of the day. Treatment Goals Patient/Caregiver Goals 1. to be pain free for both shoulders for functional activities. Prior Functional Status Baseline Function- ADL's Independent Baseline Function- Mobility Independent Baseline Function- Recreation/Hobbies yoga and swimming without shoulder pain Current Functional Impairments (Reported) Functional Limitations- ADL's difficulty aliza/doff her bra and shirts difficulty pulling up her pants Personal Factors Other Personal Factors That May Effect DMII Therapy/Recovery HTN PT-OP-C Subjective Start: 05/21/20 11:16 Freq: Status: Active Protocol: Document 07/08/20 09:07 HH (Rec: 07/08/20 09:54 [id number]) OP-PT Subjective Patient Comments Patient Comments Im feeling better and had a really good day on Wednesday. But my L shoulder had a snapping sensation yesterday while im wiping the table with sideway motion but it went back so its fine. Patient Reported Progress Improving PT-OP-E Functional Tests Start: 05/21/20 11:16 Freq: Status: Active Protocol: Document 05/21/20 11:15 HH (Rec: 05/21/20 12:25 [email or web address]) Functional Tests Apley's Scratch Test Action 2- Left R scap spine but painful at midrange Action 2- Right L scap spine without pain Action 3- Left R L1 TP with pain for the whole range Action 3- Right T10 with pain at end range PT-OP-F Manual Assessment Start: 05/21/20 11:16 Freq: Status: Active Protocol: Document 05/21/20 11:15 HH (Rec: 05/21/20 12:25 [email or web address]) Manual Assessments Soft Tissue Assessment Soft Tissue Mobility Assessment singificant tenderness to press at Pecs L worse than R, Infraspinatus and teres minor PT-OP-J Posture/Palpation/Skin Start: 05/21/20 11:16 Freq: Status: Active Protocol: Document 05/21/20 11:15 HH (Rec: 05/21/20 12:25 [email or web address]) Posture Evaluation Position Standing Head/C-Spine Posture Forward Head T-Spine Posture Increased Kyphosis L-Spine Posture Increased Lordosis Shoulder Posture (L) Rounded,(R) Rounded,(L) Forward,(R) Forward Scapula Posture (R) Protracted Arm Posture (R) Internally Rotated PT-OP-K Range of Motion Start: 05/21/20 11:16 Freq: Status: Active Protocol: Document 05/21/20 11:15 HH (Rec: 05/21/20 12:25 [email or web address]) Cervical Spine Range of Motion Cervical Spine Active Degrees Rotation Left 48 Rotation Right 47 ROM Limitations Soft Tissue Tightness Comments flexion chin to sternum Shoulder Goniometric Range of Motion Shoulder Right Active Shoulder ROM WFL Yes Testing Position Standing Flexion 175 Extension 45 Abduction 170 External Rotation at 90 degrees 90 Abduction Internal Rotation 90 Left Active Shoulder ROM WFL Yes Testing Position Standing Flexion 155 Extension 45 Abduction 170 External Rotation at 90 degrees 65 Abduction Internal Rotation 70 Shoulder ROM Limitations Shoulder ROM Limitations Pain Comments significant pain at L anterior shoulder with supine ER painful arc noted at abd 90 and flexion 90 degrees PT-OP-L Special Tests Start: 05/21/20 11:16 Freq: Status: Active Protocol: Document 05/21/20 11:15 HH (Rec: 05/21/20 12:25 [email or web address]) Special Tests Shoulder Special Tests Quintero Sherman Impingement Test Results pain at B side L>R Neer Impingement Test Results pain at B side L>R Apprehension Test Test Results positive B side Comments pain reduced with post mob on L Empty Can Test Results pain at B side Elevation Impingement Test Results pain at B side Drop Arm Rotator Cuff Test Results B -ve AC Joint Compression Test Results Pain at L side PT-OP-M Strength Start: 05/21/20 11:16 Freq: Status: Active Protocol: Document 05/21/20 11:15 HH (Rec: 05/21/20 12:25 [email or web address]) Shoulder Strength Shoulder Manual Muscle Testing Right Flexion 4+ Good+ Extension 4+ Good+ Abduction (C5) 4+ Good+ External Rotation 4 Good Internal Rotation 4+ Good+ Left Flexion 4 Good Extension 4+ Good+ Abduction (C5) 4- Good- Adduction 4+ Good+ External Rotation 4- Good- Internal Rotation 4+ Good+ Comments pain with abd, flex and ER PT-OP-Q Treatments Start: 05/21/20 11:16 Freq: Status: Active Protocol: Document 07/08/20 09:07 (Rec: 07/08/20 09:54 [id number]) Therapeutic Exercises Supine Exercises Shoulder Flexion Side left Equipment Used PVC Reps/Minutes 8 Comments for HEP, minimal discomfort noted. Prone Exercises prone Ys Prone Exercise Name on red therapy ball Side left Equipment Used red therapy ball Reps/Minutes 5 x2 Comments pain noted at top of the shoulder, need cues to engage scap retraction prone Ts Prone Exercise Name on red therapy ball Side left Equipment Used red therapy ball Reps/Minutes 5 x2 Comments pain noted at top of the shoulder, need cues to engage scap retraction Sidelying Exercises SL ER Side left Equipment Used #1 DB Reps/Minutes 8 x 2 Comments pain at anterior shoulder, but subside with half ROM Standing Exercises unilateral scap retraction Side left Reps/Minutes 8 x 2 Comments minimal discomfort noted, need cues for scap retraction OH ellyn Standing Exercise Name flexion abduction and extension Side bilateral Reps/Minutes 2 mins each Comments no pain for flexion, slight discomfort for abd, ext. subside with repetitio Manual Therapy Treatment Soft Tissue Mobilization lats Intensity/Depth Moderate Body Position Sidelying Comments L lats bicep tendon Body Location long tendon Mobilization Type Sustained Pressure,Trigger Point Release Intensity/Depth Moderate Body Position Supine Comments decreased tenderness noted today Joint Mobilizations Glenohumeral Joint B GH Direction A->P Grade III Body Position Supine Comments no pain for ER on L side with post glide. Pt was able to reach L4 after manual therapy PT-OP-T Assessment and Plan Start: 05/21/20 11:16 Freq: Status: Active Protocol: Document 07/08/20 09:07 (Rec: 07/08/20 09:54 [id number]) Physical Therapy Assessment Goals strength Impairment Pt has overall shoulder strength loss Short Term Goal (STG) 8/10 R side reached full muscle strength L side is 4-/5, 3+ for ER and flexion Shelter Goal (LTG) Pt will show 1 full MMT grade strength grade for both shoulders so she participate yoga and swimming related exercises. LTG Duration 8 weeks pain Impairment pt has pain for overhead movements and reaching her back Short Term Goal (STG) 8/10 cont in progress, painfree for R shoulder for OH and reaching back movements L UE up to PSIS with pain Senior Compensation Consultant Goal (LTG) Pt will be pain free for overhead and reaching her back related movements so she aliza / doff clothes LTG Duration 8 weeks Quickdash Impairment pt scores 29.54 Shelter Goal (LTG) Pt will score 20 or below for Quickdash to improve her qualify of life LTG Duration 8weeks Assessment Summary Assessment Pt had a good day last week but had irritation after reaching across table yesterday. Pt cont to have difficulty engaging scap retraction and her pain tends to subside if tactile cues provided. Physical Therapy Plan Next Visit Focus/Plan Next Note Type Treatment Note Next Visit Plan supine scap retraction SL ER SL abd unilateral retraction PVC pipe UBE
--- NOTE | 2020-07-11 12:36 | PT.OTN ---
Current Diagnoses Fistula, right shoulder (07/11/20) Pain in left shoulder (07/11/20) Pain in right hip (07/11/20) Pain in left hip (07/11/20) Physical Therapy Treatment Note PT-OP-A Visit Information Start: 05/21/20 11:16 Freq: Status: Active Protocol: Document 07/08/20 09:07 HH (Rec: 07/08/20 09:54 [id number]) Out-Patient Physical Therapy Visit Information Visit Information Visit Type Treatment Note Visit Start Time 09:04 Visit Stop Time 09:46 Total Visit Minutes 42 Visit Number 12 Number of FURNITURE DECALS INSPECTOR Visits 0 PT-OP-B Current Condition Start: 05/21/20 11:16 Freq: Status: Active Protocol: Document 05/21/20 11:15 HH (Rec: 05/21/20 12:25 HH [email or web address]) Current Condition History of Current Condition Onset Date November, Current Complaints Bilateral shoulder pain L >R, unable to reach behind her back and lift History of Current Condition Pt is a 59yo female here for bilateral shoulder pain L worse than R since November this year. Pt reports her pain started after she went for yoga and swimming class. Pain is achy and pinching at the anterior part of shoulder joints all the time and her pain has been getting worse every since then. She currently has difficulty reaching her back to aliza/doff her bra, washing her back and pull her pants up d/t pain. Pt is a side sleeper and her shoulder pain also affects her sleep that wakes her up couple times during the night. Pt has tried snow layton stretching ex but that one hurts a lot but did feel helpful later of the day. Treatment Goals Patient/Caregiver Goals 1. to be pain free for both shoulders for functional activities. Prior Functional Status Baseline Function- ADL's Independent Baseline Function- Mobility Independent Baseline Function- Recreation/Hobbies yoga and swimming without shoulder pain Current Functional Impairments (Reported) Functional Limitations- ADL's difficulty aliza/doff her bra and shirts difficulty pulling up her pants Personal Factors Other Personal Factors That May Effect DMII Therapy/Recovery HTN PT-OP-C Subjective Start: 05/21/20 11:16 Freq: Status: Active Protocol: Document 07/08/20 09:07 HH (Rec: 07/08/20 09:54 [id number]) OP-PT Subjective Patient Comments Patient Comments Im feeling better and had a really good day on Wednesday. But my L shoulder had a snapping sensation yesterday while im wiping the table with sideway motion but it went back so its fine. Patient Reported Progress Improving PT-OP-E Functional Tests Start: 05/21/20 11:16 Freq: Status: Active Protocol: Document 05/21/20 11:15 HH (Rec: 05/21/20 12:25 [email or web address]) Functional Tests Apley's Scratch Test Action 2- Left R scap spine but painful at midrange Action 2- Right L scap spine without pain Action 3- Left R L1 TP with pain for the whole range Action 3- Right T10 with pain at end range PT-OP-F Manual Assessment Start: 05/21/20 11:16 Freq: Status: Active Protocol: Document 05/21/20 11:15 HH (Rec: 05/21/20 12:25 [email or web address]) Manual Assessments Soft Tissue Assessment Soft Tissue Mobility Assessment singificant tenderness to press at Pecs L worse than R, Infraspinatus and teres minor PT-OP-J Posture/Palpation/Skin Start: 05/21/20 11:16 Freq: Status: Active Protocol: Document 05/21/20 11:15 HH (Rec: 05/21/20 12:25 [email or web address]) Posture Evaluation Position Standing Head/C-Spine Posture Forward Head T-Spine Posture Increased Kyphosis L-Spine Posture Increased Lordosis Shoulder Posture (L) Rounded,(R) Rounded,(L) Forward,(R) Forward Scapula Posture (R) Protracted Arm Posture (R) Internally Rotated PT-OP-K Range of Motion Start: 05/21/20 11:16 Freq: Status: Active Protocol: Document 05/21/20 11:15 HH (Rec: 05/21/20 12:25 [email or web address]) Cervical Spine Range of Motion Cervical Spine Active Degrees Rotation Left 48 Rotation Right 47 ROM Limitations Soft Tissue Tightness Comments flexion chin to sternum Shoulder Goniometric Range of Motion Shoulder Right Active Shoulder ROM WFL Yes Testing Position Standing Flexion 175 Extension 45 Abduction 170 External Rotation at 90 degrees 90 Abduction Internal Rotation 90 Left Active Shoulder ROM WFL Yes Testing Position Standing Flexion 155 Extension 45 Abduction 170 External Rotation at 90 degrees 65 Abduction Internal Rotation 70 Shoulder ROM Limitations Shoulder ROM Limitations Pain Comments significant pain at L anterior shoulder with supine ER painful arc noted at abd 90 and flexion 90 degrees PT-OP-L Special Tests Start: 05/21/20 11:16 Freq: Status: Active Protocol: Document 05/21/20 11:15 HH (Rec: 05/21/20 12:25 [email or web address]) Special Tests Shoulder Special Tests Quintero Sherman Impingement Test Results pain at B side L>R Neer Impingement Test Results pain at B side L>R Apprehension Test Test Results positive B side Comments pain reduced with post mob on L Empty Can Test Results pain at B side Elevation Impingement Test Results pain at B side Drop Arm Rotator Cuff Test Results B -ve AC Joint Compression Test Results Pain at L side PT-OP-M Strength Start: 05/21/20 11:16 Freq: Status: Active Protocol: Document 05/21/20 11:15 HH (Rec: 05/21/20 12:25 [email or web address]) Shoulder Strength Shoulder Manual Muscle Testing Right Flexion 4+ Good+ Extension 4+ Good+ Abduction (C5) 4+ Good+ External Rotation 4 Good Internal Rotation 4+ Good+ Left Flexion 4 Good Extension 4+ Good+ Abduction (C5) 4- Good- Adduction 4+ Good+ External Rotation 4- Good- Internal Rotation 4+ Good+ Comments pain with abd, flex and ER PT-OP-Q Treatments Start: 05/21/20 11:16 Freq: Status: Active Protocol: Document 07/08/20 09:07 (Rec: 07/08/20 09:54 [id number]) Therapeutic Exercises Supine Exercises Shoulder Flexion Side left Equipment Used PVC Reps/Minutes 8 Comments for HEP, minimal discomfort noted. Prone Exercises prone Ys Prone Exercise Name on red therapy ball Side left Equipment Used red therapy ball Reps/Minutes 5 x2 Comments pain noted at top of the shoulder, need cues to engage scap retraction prone Ts Prone Exercise Name on red therapy ball Side left Equipment Used red therapy ball Reps/Minutes 5 x2 Comments pain noted at top of the shoulder, need cues to engage scap retraction Sidelying Exercises SL ER Side left Equipment Used #1 DB Reps/Minutes 8 x 2 Comments pain at anterior shoulder, but subside with half ROM Standing Exercises unilateral scap retraction Side left Reps/Minutes 8 x 2 Comments minimal discomfort noted, need cues for scap retraction OH ellyn Standing Exercise Name flexion abduction and extension Side bilateral Reps/Minutes 2 mins each Comments no pain for flexion, slight discomfort for abd, ext. subside with repetitio Manual Therapy Treatment Soft Tissue Mobilization lats Intensity/Depth Moderate Body Position Sidelying Comments L lats bicep tendon Body Location long tendon Mobilization Type Sustained Pressure,Trigger Point Release Intensity/Depth Moderate Body Position Supine Comments decreased tenderness noted today Joint Mobilizations Glenohumeral Joint B GH Direction A->P Grade III Body Position Supine Comments no pain for ER on L side with post glide. Pt was able to reach L4 after manual therapy PT-OP-T Assessment and Plan Start: 05/21/20 11:16 Freq: Status: Active Protocol: Document 07/08/20 09:07 (Rec: 07/08/20 09:54 [id number]) Physical Therapy Assessment Goals strength Impairment Pt has overall shoulder strength loss Short Term Goal (STG) 8/10 R side reached full muscle strength L side is 4-/5, 3+ for ER and flexion Nursing Home Goal (LTG) Pt will show 1 full MMT grade strength grade for both shoulders so she participate yoga and swimming related exercises. LTG Duration 8 weeks pain Impairment pt has pain for overhead movements and reaching her back Short Term Goal (STG) 8/10 cont in progress, painfree for R shoulder for OH and reaching back movements L UE up to PSIS with pain Beach Expert Goal (LTG) Pt will be pain free for overhead and reaching her back related movements so she aliza / doff clothes LTG Duration 8 weeks Quickdash Impairment pt scores 29.54 Nursing Home Goal (LTG) Pt will score 20 or below for Quickdash to improve her qualify of life LTG Duration 8weeks Assessment Summary Assessment Pt had a good day last week but had irritation after reaching across table yesterday. Pt cont to have difficulty engaging scap retraction and her pain tends to subside if tactile cues provided. Physical Therapy Plan Next Visit Focus/Plan Next Note Type Treatment Note Next Visit Plan supine scap retraction SL ER SL abd unilateral retraction PVC pipe UBE
--- NOTE | 2020-07-11 12:37 | PT.OTN ---
Current Diagnoses Fistula, right shoulder (07/11/20) Pain in left shoulder (07/11/20) Pain in right hip (07/11/20) Pain in left hip (07/11/20) Physical Therapy Treatment Note PT-OP-A Visit Information Start: 05/21/20 11:16 Freq: Status: Active Protocol: Document 07/11/20 09:05 HH (Rec: 07/11/20 12:37 [id number]) Out-Patient Physical Therapy Visit Information Visit Information Visit Type Treatment Note Visit Start Time 09:03 Visit Stop Time 09:45 Total Visit Minutes 42 Visit Number 13 Number of LIEUTENANT SHIFT SUPERVISOR Visits 0 PT-OP-B Current Condition Start: 05/21/20 11:16 Freq: Status: Active Protocol: Document 05/21/20 11:15 HH (Rec: 05/21/20 12:25 HH [email or web address]) Current Condition History of Current Condition Onset Date November, Current Complaints Bilateral shoulder pain L >R, unable to reach behind her back and lift History of Current Condition Pt is a 59yo female here for bilateral shoulder pain L worse than R since November this year. Pt reports her pain started after she went for yoga and swimming class. Pain is achy and pinching at the anterior part of shoulder joints all the time and her pain has been getting worse every since then. She currently has difficulty reaching her back to aliza/doff her bra, washing her back and pull her pants up d/t pain. Pt is a side sleeper and her shoulder pain also affects her sleep that wakes her up couple times during the night. Pt has tried snow layton stretching ex but that one hurts a lot but did feel helpful later of the day. Treatment Goals Patient/Caregiver Goals 1. to be pain free for both shoulders for functional activities. Prior Functional Status Baseline Function- ADL's Independent Baseline Function- Mobility Independent Baseline Function- Recreation/Hobbies yoga and swimming without shoulder pain Current Functional Impairments (Reported) Functional Limitations- ADL's difficulty aliza/doff her bra and shirts difficulty pulling up her pants Personal Factors Other Personal Factors That May Effect DMII Therapy/Recovery HTN PT-OP-C Subjective Start: 05/21/20 11:16 Freq: Status: Active Protocol: Document 07/11/20 09:05 HH (Rec: 07/11/20 12:37 [email or web address]) OP-PT Subjective Patient Comments Patient Comments It is about the same so far and i still have trouble sleeping because of the pain. Patient Reported Progress Same PT-OP-E Functional Tests Start: 05/21/20 11:16 Freq: Status: Active Protocol: Document 05/21/20 11:15 HH (Rec: 05/21/20 12:25 [email or web address]) Functional Tests Apley's Scratch Test Action 2- Left R scap spine but painful at midrange Action 2- Right L scap spine without pain Action 3- Left R L1 TP with pain for the whole range Action 3- Right T10 with pain at end range PT-OP-F Manual Assessment Start: 05/21/20 11:16 Freq: Status: Active Protocol: Document 05/21/20 11:15 HH (Rec: 05/21/20 12:25 [email or web address]) Manual Assessments Soft Tissue Assessment Soft Tissue Mobility Assessment singificant tenderness to press at Pecs L worse than R, Infraspinatus and teres minor PT-OP-J Posture/Palpation/Skin Start: 05/21/20 11:16 Freq: Status: Active Protocol: Document 05/21/20 11:15 HH (Rec: 05/21/20 12:25 [email or web address]) Posture Evaluation Position Standing Head/C-Spine Posture Forward Head T-Spine Posture Increased Kyphosis L-Spine Posture Increased Lordosis Shoulder Posture (L) Rounded,(R) Rounded,(L) Forward,(R) Forward Scapula Posture (R) Protracted Arm Posture (R) Internally Rotated PT-OP-K Range of Motion Start: 05/21/20 11:16 Freq: Status: Active Protocol: Document 05/21/20 11:15 HH (Rec: 05/21/20 12:25 [email or web address]) Cervical Spine Range of Motion Cervical Spine Active Degrees Rotation Left 48 Rotation Right 47 ROM Limitations Soft Tissue Tightness Comments flexion chin to sternum Shoulder Goniometric Range of Motion Shoulder Right Active Shoulder ROM WFL Yes Testing Position Standing Flexion 175 Extension 45 Abduction 170 External Rotation at 90 degrees 90 Abduction Internal Rotation 90 Left Active Shoulder ROM WFL Yes Testing Position Standing Flexion 155 Extension 45 Abduction 170 External Rotation at 90 degrees 65 Abduction Internal Rotation 70 Shoulder ROM Limitations Shoulder ROM Limitations Pain Comments significant pain at L anterior shoulder with supine ER painful arc noted at abd 90 and flexion 90 degrees PT-OP-L Special Tests Start: 05/21/20 11:16 Freq: Status: Active Protocol: Document 05/21/20 11:15 HH (Rec: 05/21/20 12:25 [email or web address]) Special Tests Shoulder Special Tests Quintero Sherman Impingement Test Results pain at B side L>R Neer Impingement Test Results pain at B side L>R Apprehension Test Test Results positive B side Comments pain reduced with post mob on L Empty Can Test Results pain at B side Elevation Impingement Test Results pain at B side Drop Arm Rotator Cuff Test Results B -ve AC Joint Compression Test Results Pain at L side PT-OP-M Strength Start: 05/21/20 11:16 Freq: Status: Active Protocol: Document 05/21/20 11:15 HH (Rec: 05/21/20 12:25 [email or web address]) Shoulder Strength Shoulder Manual Muscle Testing Right Flexion 4+ Good+ Extension 4+ Good+ Abduction (C5) 4+ Good+ External Rotation 4 Good Internal Rotation 4+ Good+ Left Flexion 4 Good Extension 4+ Good+ Abduction (C5) 4- Good- Adduction 4+ Good+ External Rotation 4- Good- Internal Rotation 4+ Good+ Comments pain with abd, flex and ER PT-OP-Q Treatments Start: 05/21/20 11:16 Freq: Status: Active Protocol: Document 07/11/20 09:05 HH (Rec: 07/11/20 12:37 [id number]) Therapeutic Exercises Supine Exercises supine abd Supine Exercise Name AAROM Side bilateral Equipment Used PVC Reps/Minutes 2 mins Comments no discomfort noted. shoulder ERs Supine Exercise Name AAROM Side bilateral Equipment Used PVC Reps/Minutes 4 mins Comments slight discomfort at ER on L ( ant shoulder) Shoulder Flexion Supine Exercise Name AAROM Side left Equipment Used PVC Reps/Minutes 8 Comments no discomfort noted Sidelying Exercises SL ER Sidelying Exercise Name with towel underneath Side left Equipment Used #1 DB Reps/Minutes 8 x 2 Comments pain at anterior shoulder, but subside with half ROM Standing Exercises reaching behind back Standing Exercise Name AAROM Equipment Used with OH ellyn Reps/Minutes 4 mins Comments L thumb able to reach L2-L4 OH shoulder press Standing Exercise Name with PVC Side bilateral Reps/Minutes 4 mins Comments less discomfort with repetitions OH ellyn Standing Exercise Name flexion abduction and extension Side bilateral Reps/Minutes 2 mins each Comments no pain for flexion, slight discomfort for abd, ext. subside with repetitio Manual Therapy Treatment Soft Tissue Mobilization lats Intensity/Depth Moderate Body Position Sidelying Comments L lats less pain noted today. bicep tendon Body Location long tendon Mobilization Type Sustained Pressure,Trigger Point Release Intensity/Depth Moderate Body Position Supine Comments decreased tenderness noted today PT-OP-T Assessment and Plan Start: 05/21/20 11:16 Freq: Status: Active Protocol: Document 07/11/20 09:05 (Rec: 07/11/20 12:37 [id number]) Physical Therapy Assessment Goals strength Impairment Pt has overall shoulder strength loss Short Term Goal (STG) 8/10 R side reached full muscle strength L side is 4-/5, 3+ for ER and flexion Mechanical Engineering Lecturer Goal (LTG) Pt will show 1 full MMT grade strength grade for both shoulders so she participate yoga and swimming related exercises. LTG Duration 8 weeks pain Impairment pt has pain for overhead movements and reaching her back Short Term Goal (STG) 8/10 cont in progress, painfree for R shoulder for OH and reaching back movements L UE up to PSIS with pain Senior Living Goal (LTG) Pt will be pain free for overhead and reaching her back related movements so she aliza / doff clothes LTG Duration 8 weeks Quickdash Impairment pt scores 29.54 Senior Living Goal (LTG) Pt will score 20 or below for Quickdash to improve her qualify of life LTG Duration 8weeks Assessment Summary Assessment Initiated IR stretch with OH ellyn today and pt cira well and able to reach L2L4 by reaching behind her back. She also tolerate well with supine AAROM. Consolidated her HEP with supine AAROM, OH ellyn for reaching her back, SL ER and crossbody reach. Physical Therapy Plan Next Visit Focus/Plan Next Note Type Treatment Note Next Visit Plan supine scap retraction SL ER SL abd unilateral retraction PVC pipe UBE
--- NOTE | 2020-07-15 09:35 | PT-OP ANOTE ---
Pt called in eariler to cancel appt d/t not feeling well.
--- NOTE | 2020-07-18 10:00 | PT.OTN ---
Current Diagnoses Fistula, right shoulder (07/18/20) Pain in left shoulder (07/18/20) Pain in right hip (07/18/20) Pain in left hip (07/18/20) Physical Therapy Treatment Note PT-OP-A Visit Information Start: 05/21/20 11:16 Freq: Status: Active Protocol: Document 07/18/20 09:04 HH (Rec: 07/18/20 10:00 [id number]) Out-Patient Physical Therapy Visit Information Visit Information Visit Type Treatment Note Visit Start Time 09:04 Visit Stop Time 09:45 Total Visit Minutes 41 Visit Number 14 Number of AIRCRAFT LOAD CONTROLLER Visits 0 PT-OP-B Current Condition Start: 05/21/20 11:16 Freq: Status: Active Protocol: Document 05/21/20 11:15 HH (Rec: 05/21/20 12:25 HH [email or web address]) Current Condition History of Current Condition Onset Date November, Current Complaints Bilateral shoulder pain L >R, unable to reach behind her back and lift History of Current Condition Pt is a 59yo female here for bilateral shoulder pain L worse than R since November this year. Pt reports her pain started after she went for yoga and swimming class. Pain is achy and pinching at the anterior part of shoulder joints all the time and her pain has been getting worse every since then. She currently has difficulty reaching her back to aliza/doff her bra, washing her back and pull her pants up d/t pain. Pt is a side sleeper and her shoulder pain also affects her sleep that wakes her up couple times during the night. Pt has tried snow layton stretching ex but that one hurts a lot but did feel helpful later of the day. Treatment Goals Patient/Caregiver Goals 1. to be pain free for both shoulders for functional activities. Prior Functional Status Baseline Function- ADL's Independent Baseline Function- Mobility Independent Baseline Function- Recreation/Hobbies yoga and swimming without shoulder pain Current Functional Impairments (Reported) Functional Limitations- ADL's difficulty aliza/doff her bra and shirts difficulty pulling up her pants Personal Factors Other Personal Factors That May Effect DMII Therapy/Recovery HTN PT-OP-C Subjective Start: 05/21/20 11:16 Freq: Status: Active Protocol: Document 07/18/20 09:04 HH (Rec: 07/18/20 10:00 [id number]) OP-PT Subjective Patient Comments Patient Comments I could get a little bit more ROM on IR when i use the ellyn. But i have been having trouble sleeping lately and it irritates me. My R side is doing almost completely normal now. Like 85%. Left one is 65 % Patient Reported Progress Same PT-OP-E Functional Tests Start: 05/21/20 11:16 Freq: Status: Active Protocol: Document 05/21/20 11:15 HH (Rec: 05/21/20 12:25 [email or web address]) Functional Tests Apley's Scratch Test Action 2- Left R scap spine but painful at midrange Action 2- Right L scap spine without pain Action 3- Left R L1 TP with pain for the whole range Action 3- Right T10 with pain at end range PT-OP-F Manual Assessment Start: 05/21/20 11:16 Freq: Status: Active Protocol: Document 05/21/20 11:15 HH (Rec: 05/21/20 12:25 [email or web address]) Manual Assessments Soft Tissue Assessment Soft Tissue Mobility Assessment singificant tenderness to press at [place]ecs L worse than R, Infraspinatus and teres minor PT-OP-J Posture/Palpation/Skin Start: 05/21/20 11:16 Freq: Status: Active Protocol: Document 05/21/20 11:15 HH (Rec: 05/21/20 12:25 [email or web address]) Posture Evaluation Position Standing Head/C-Spine Posture Forward Head T-Spine Posture Increased Kyphosis L-Spine Posture Increased Lordosis Shoulder Posture (L) Rounded,(R) Rounded,(L) Forward,(R) Forward Scapula Posture (R) Protracted Arm Posture (R) Internally Rotated PT-OP-K Range of Motion Start: 05/21/20 11:16 Freq: Status: Active Protocol: Document 05/21/20 11:15 HH (Rec: 05/21/20 12:25 [email or web address]) Cervical Spine Range of Motion Cervical Spine Active Degrees Rotation Left 48 Rotation Right 47 ROM Limitations Soft Tissue Tightness Comments flexion chin to sternum Shoulder Goniometric Range of Motion Shoulder Right Active Shoulder ROM WFL Yes Testing Position Standing Flexion 175 Extension 45 Abduction 170 External Rotation at 90 degrees 90 Abduction Internal Rotation 90 Left Active Shoulder ROM WFL Yes Testing Position Standing Flexion 155 Extension 45 Abduction 170 External Rotation at 90 degrees 65 Abduction Internal Rotation 70 Shoulder ROM Limitations Shoulder ROM Limitations Pain Comments significant pain at L anterior shoulder with supine ER painful arc noted at abd 90 and flexion 90 degrees PT-OP-L Special Tests Start: 05/21/20 11:16 Freq: Status: Active Protocol: Document 05/21/20 11:15 (Rec: 05/21/20 12:25 [email or web address]) Special Tests Shoulder Special Tests Quintero Sherman Impingement Test Results pain at B side L>R Neer Impingement Test Results pain at B side L>R Apprehension Test Test Results positive B side Comments pain reduced with post mob on L Empty Can Test Results pain at B side Elevation Impingement Test Results pain at B side Drop Arm Rotator Cuff Test Results B -ve AC Joint Compression Test Results Pain at L side PT-OP-M Strength Start: 05/21/20 11:16 Freq: Status: Active Protocol: Document 05/21/20 11:15 (Rec: 05/21/20 12:25 [email or web address]) Shoulder Strength Shoulder Manual Muscle Testing Right Flexion 4+ Good+ Extension 4+ Good+ Abduction (C5) 4+ Good+ External Rotation 4 Good Internal Rotation 4+ Good+ Left Flexion 4 Good Extension 4+ Good+ Abduction (C5) 4- Good- Adduction 4+ Good+ External Rotation 4- Good- Internal Rotation 4+ Good+ Comments pain with abd, flex and ER PT-OP-Q Treatments Start: 05/21/20 11:16 Freq: Status: Active Protocol: Document 07/18/20 09:04 (Rec: 07/18/20 10:00 [id number]) Therapeutic Exercises Supine Exercises supine abd Supine Exercise Name AAROM Side bilateral Equipment Used PVC Reps/Minutes 4 mins Comments cues on scap retraction shoulder ERs Supine Exercise Name AAROM Side bilateral Equipment Used PVC Reps/Minutes 4 mins Comments no discomfort noted Sidelying Exercises SL ER Sidelying Exercise Name with towel underneath Side left Equipment Used #1 DB Reps/Minutes 8 x 2 Comments pain at anterior shoulder, but subside with half ROM Standing Exercises wall slide Standing Exercise Name cues with scap protraction Side right Reps/Minutes 2 mins Comments no pain noted, stretched noted at R late reaching behind back Standing Exercise Name AAROM Equipment Used with OH ellyn Reps/Minutes 4 mins Comments L thumb able to reach T12 OH ellyn Standing Exercise Name flexion abduction and extension Side bilateral Reps/Minutes 2 mins each Comments no pain for flexion, slight discomfort for abd, ext. subside with repetitio Manual Therapy Treatment Soft Tissue Mobilization lats Intensity/Depth Moderate Body Position Sidelying Comments L lats minimal pain noted today. bicep tendon Body Location long tendon Mobilization Type Sustained Pressure,Trigger Point Release Intensity/Depth Moderate Body Position Supine Comments minimal tenderness noted today PT-OP-T Assessment and Plan Start: 05/21/20 11:16 Freq: Status: Active Protocol: Document 07/18/20 09:04 (Rec: 07/18/20 10:00 [id number]) Physical Therapy Assessment Goals strength Impairment Pt has overall shoulder strength loss Short Term Goal (STG) 07/18 R side reached full muscle strength L side is 4-/5, 4- for ER and flexion IR= 3+/5 Intermediate Goal (LTG) Pt will show 1 full MMT grade strength grade for both shoulders so she participate yoga and swimming related exercises. LTG Duration 8 weeks pain Impairment pt has pain for overhead movements and reaching her back Short Term Goal (STG) 07/18 cont in progress, painfree for R shoulder for OH and reaching back movements L UE up to T12 with mod pain Export Coordinator Goal (LTG) Pt will be pain free for overhead and reaching her back related movements so she aliza / doff clothes LTG Duration 8 weeks Quickdash Impairment pt scores 29.54 Intermediate Goal (LTG) Pt will score 20 or below for Quickdash to improve her qualify of life LTG Duration 8weeks Progress Towards Goals Progress Towards Goals Slow Progress due to Activity Tolerance,Slow Progress - Other Assessment Summary Assessment Pt shows slow progress over the course of 2 months rehab but she stated she is 65% better for L shoulder and 85% better for R shoulder. Reaching behind her back is still her primary limitation but she was able to reach up to T12 today. She does not have pinching pain but generalized achy discomfort at this point. She will have a ortho consult with Dr. Armas next week. Will f/u with her on phone in 2 weeks. Physical Therapy Plan Next Visit Focus/Plan Next Note Type Progress Note Next Visit Plan will check with pt regarding her eval with ortho
--- NOTE | 2020-10-24 12:04 | PT.OPDS ---
Current Diagnoses Fistula, right shoulder (07/18/20) Pain in left shoulder (07/18/20) Pain in right hip (07/18/20) Pain in left hip (07/18/20) Visit Care Team Role Provider Type Bina Reese MD Attending Provider Physician Primary Care Provider Referring Provider Specialty: Family Practice Address: [address] [place] [address], [facility] Email: [email or web address] Visit Number Visit Number 14 Discharge Summary PT-OP-T Assessment and Plan Start: 05/21/20 11:16 Freq: Status: Active Protocol: Document 10/24/20 12:03 (Rec: 10/24/20 12:04 [email or web address]) Physical Therapy Plan Discharge Physical Therapy Discharge Reasons Patient Request Discharge Comments pt requested to be d/c at her last appointment and thinks that she could continue home exercises independently
== END 2020-11-08 14:24 ==
LOC: PHYS 09:00
PROVIDERS: PCP Family Medicine; Referring Provider Family Medicine; Visit Provider Family Medicine
DX: M25.111 Fistula, right shoulder (principal); M25.512 Pain in left shoulder; M25.551 Pain in right hip; M25.552 Pain in left hip
CPT/HCPCS: 97110; 97112; 97140; 97161; 97530

== ENCOUNTER → 2020-08-21 10:59 | Outpatient (CLI) | payer OTHER, SELFPAY ==
--- NOTE | 2020-08-21 11:39 | DIET.PN ---
Dietary Progress Note Assessment: 59y F here for RD f/u regarding preDM, obesity, and ongoing sx of IBS. Pt seeing RAFAT Tanner who has put her on probiotics and a glutamine supplement to try to help c IBS sx which started in May 2020. Pt will be doing a stool test in next week to further assess cause of sx. Pt had two colonoscopies in past 10y which were normal. Pt has lost 3# in past month. Pt reports watery diarrhea has improved from 5x/d c urgency to once every day or every other day. Pt reports eating very limited diet (romanian muffin, toast, egg, chicken, cooked carrot) and is afraid to eat other foods for aggravation of sx. Pt is feeling sad that she has not been able to follow CCD diet or exercise for fear of IBS sx. WT: 224#(-3# in 1mo) Nutrition Diagnosis: limited food acceptance r/t fear of IBS sx and worsening her preDM aeb pt eating <10 food items daily since May 2020, pt relies on high carb items (romanian muffin, toast), pt reports only being able to tolerate cooked carrots for F/V, pt has fecal urgency daily c watery diarrhea improved from 5x/d to 1x/d. Interventions: 1. Discussed stress reduction and stress often aggravating IBS. Encouraged pt to [facility]. Pt did not know they were offering Zoom classes and is relieved to find this out and plans to sign up and attend starting this week. 2. Introduced pt to low FODMAP diet, to not follow strictly, but to choose items from the low FODMAP list to slowly to assess for dietary tolerance. Pt was relieved to find out a strategic way to incorporate more variety in her diet. Monitoring/Evaluations: pt will work on interventions and call to schedule f/u.
== END ==
PROVIDERS: PCP Family Medicine; Referring Provider Naturopath; Visit Provider Family Medicine
DX: R73.03 Prediabetes (principal); K58.0 Irritable bowel syndrome with diarrhea; E66.9 Obesity, unspecified; Z71.3 Dietary counseling and surveillance
CPT/HCPCS: 97803

== ENCOUNTER → 2020-11-01 11:09 | Outpatient (CLI) | payer OTHER, SELFPAY ==
[2020-11-01 11:20] LABS: Bacteria Urine None Seen
[2020-11-01 12:07] LABS: Appearance Urine UA CLEAR; Bilirubin Urine UA NEGATIVE (NEGATIVE); Color Urine UA YELLOW; Glucose Urine UA NEGATIVE (Negative); Ketones Urine UA NEGATIVE (NEGATIVE); Leukocyte Esterase Urine UA TRACE (NEGATIVE); Nitrite Urine UA NEGATIVE (Negative); Occult Blood Urine UA TRACE-INTACT (Negative); Protein Urine UA TRACE (Negative); Urobilinogen Urine UA 0.2 E.U./dL (0.2)
[2020-11-01 12:09] LABS: pH Urine UA 6.5 (4.5-8.0)
[2020-11-01 12:18] LABS: Culture Indicated Urine Specimen Cultured; RBC Urine 1-5/HPF (0-5/HPF); WBC Urine 5-10/HPF (0-5/HPF)
== END ==
PROVIDERS: PCP Family Medicine; Referring Provider Family Medicine; Visit Provider Family Medicine
DX: N32.89 Other specified disorders of bladder (principal)
CPT/HCPCS: 81001; 87086

== ENCOUNTER → 2020-11-02 11:10 | Outpatient (CLI) | payer OTHER, SELFPAY | PROVIDERS: PCP Family Medicine; Visit Provider Nurse Practitioner | DX: N34.3 Urethral syndrome, unspecified (principal) | CPT/HCPCS: 87086 ==

== ENCOUNTER → 2020-11-02 11:29 | Outpatient (CLI) | payer OTHER, SELFPAY ==
--- NOTE | 2020-11-02 11:30 | DI.RAD.S_ITS ---
PROCEDURE: XR KUB INDICATIONS: r/o kidney stone, bladder pain, TECHNIQUE: One view of the abdomen acquired. COMPARISON: [facility] [place], CR, XR PELVIS WITH BILATERAL LATERAL HIPS, 07/31/2020, 16:07. [facility], CT, CT ABDOMEN PELVIS W CON, 01/10/2019, 13:47. FINDINGS: Surgical changes and devices: None. Bowel: Scattered small bowel and colonic gas. No dilated loops are identified. Relative paucity of small bowel gas in the left abdomen. Soft tissues: No kidney stones identified. Punctate nonobstructing left kidney stone seen on prior CT from December 2018 may be too small to visualize. No suspicious abdominal calcifications. Visualized solid organ contours appear normal in size. Bones: No suspicious bony lesions. IMPRESSION: 1. No kidney stones identified. -If clinically indicated consider CT KUB for further evaluation. 2. Relative paucity of small bowel gas somewhat limits evaluation for small bowel obstruction. Suspect nonobstructive bowel gas pattern. Dictated by: Harris Chaudhry M.D. on 11/02/2020 at 11:15 Approved by: Harris Chaudhry M.D. on 11/02/2020 at 11:19
== END ==
PROVIDERS: PCP Family Medicine; Referring Provider Family Medicine; Visit Provider Nurse Practitioner
DX: R10.9 Unspecified abdominal pain (principal); R39.89 Other symptoms and signs involving the genitourinary system; N34.3 Urethral syndrome, unspecified
CPT/HCPCS: 74018; 87086

== ENCOUNTER → 2020-11-04 15:23 | Outpatient (CLI) | payer OTHER, SELFPAY ==
--- NOTE | 2020-11-04 15:24 | DI.CT.S_ITS ---
PROCEDURE: CT KIDNEY URETER BLADDER (KUB) INDICATIONS: bladder, urethra spasms and history of Kidney stones TECHNIQUE: Noncontrast 5 mm thick sections acquired from the diaphragms to the symphysis. 5 mm thick coronal and sagittal reformats were then performed. For radiation dose reduction, the following was used: automated exposure control, adjustment of mA and/or kV according to patient size. COMPARISON: [facility], CT, CT KIDNEY URETER BLADDER (KUB), 12/24/2018, 22:31. FINDINGS: Image quality: Excellent. Lung bases: Lung bases are clear. Heart size is normal. There is a small hiatal hernia. Urinary system: Both kidneys are normal in size. Punctate nonobstructing calculus is present within the lower pole of the right kidney. Low-density cyst is present within the upper pole of the left kidney. No hydronephrosis or perinephric fat stranding. Both ureters appear non-dilated throughout their expected courses. The bladder is decompressed. No bladder calculi. Uterus and ovaries are grossly unremarkable. Other solid organs: Liver is normal in size. Gallbladder is unremarkable . Pancreas is normal in contours. Spleen is normal in size. No adrenal nodules. Peritoneum and bowel: Unenhanced bowel loops demonstrate normal wall thickness and caliber. The appendix is not visualized; however there is no discrete right lower quadrant fluid or fat stranding to suggest acute appendicitis. No free fluid or air. Nodes and vessels: No retroperitoneal or mesenteric adenopathy by size criteria. Aorta and inferior vena cava are normal in caliber. Abdominal wall: No ventral hernias. Pelvis: No free pelvic fluid. No inguinal adenopathy. There are bilateral moderate-sized fat containing inguinal hernias. Bones: No suspicious bony lesions. No vertebral body compression fractures. IMPRESSION: 1. Nonobstructing right nephrolithiasis. No left nephrolithiasis. No ureterolithiasis, hydroureter, or hydronephrosis. Dictated by: Anat Flood M.D. on 11/04/2020 at 15:41 Approved by: Anat Flood M.D. on 11/04/2020 at 15:43
== END ==
PROVIDERS: PCP Family Medicine; Referring Provider Nurse Practitioner; Visit Provider Nurse Practitioner
DX: N32.89 Other specified disorders of bladder (principal); N20.0 Calculus of kidney; R10.9 Unspecified abdominal pain; K40.20 Bilateral inguinal hernia, without obstruction or gangrene, not specified as recurrent; Z87.442 Personal history of urinary calculi
CPT/HCPCS: 74176

== ENCOUNTER → 2020-11-27 13:24 | Outpatient (CLI) | payer OTHER, SELFPAY ==
[2020-11-27 15:01] LABS: BUN Creatinine Ratio 31.5 (6-22); Blood Urea Nitrogen 17 mg/dL (7-17); Calcium 9.8 mg/dL (8.4-10.2); Carbon Dioxide 29 mmol/L (22-32); Chloride 104 mmol/L (98-107); Estimated Glomerular Filt Rate > 60.0 mL/min (>60); Glucose 125 mg/dL (80-110); HEMOLYSIS 30 (0-50); Potassium 3.9 mmol/L (3.4-5.1); Sodium 140 mmol/L (137-145)
== END ==
PROVIDERS: PCP Family Medicine; Referring Provider Student in an Organized Health Care Education/Training Program; Visit Provider Student in an Organized Health Care Education/Training Program
DX: R10.2 Pelvic and perineal pain (principal)
CPT/HCPCS: 36415; 80048

== ENCOUNTER → 2020-12-05 11:50 | Outpatient (CLI) | payer OTHER, SELFPAY ==
--- NOTE | 2020-12-05 | DI.MG.S_ITS ---
BILATERAL DIGITAL SCREENING MAMMOGRAM 3D/2D WITH CAD: 12/05/2020 CLINICAL: Routine screening. Comparison is made to exams dated: 11/28/2019 mammogram, 11/26/2018 mammogram - [facility], and 10/07/2016 mammogram - [facility]. There are scattered fibroglandular elements in both breasts. Current study was also evaluated with a Computer Aided Detection (CAD) system. No significant masses, calcifications, or other findings are seen in either breast. There has been no significant interval change. IMPRESSION: NEGATIVE There is no mammographic evidence of malignancy. A 1 year screening mammogram is recommended. This exam was interpreted at Station ID: [id number]. NOTE: For mammograms, a report in lay terms will be sent to the patient. Approximately 15% of breast malignancies will not be visualized mammographically. In the management of a palpable breast mass, a negative mammogram must not discourage biopsy of a clinically suspicious lesion. Electronically Signed By: Facundo Combs acr/penrad:12/05/2020 12:18:17 copy to: JOSE LAMAS copy to: Lorene Stevens, ph: [phone], fax: [phone] letter sent: Normal Exam ACR BI-RADS Category 1: Negative [id number]
== END ==
PROVIDERS: PCP Family Medicine; Referring Provider Family Medicine; Visit Provider Family Medicine
DX: Z12.31 Encounter for screening mammogram for malignant neoplasm of breast (principal)
CPT/HCPCS: 77063; 77067

== ENCOUNTER → 2021-02-06 13:00 | Outpatient (CLI) | payer OTHER, SELFPAY ==
[2021-02-06] MEDS: COVID-19 VACC #1, MRNA(MOD) 100 MCG/0.5 ML VIAL IM (13:10)
== END ==
PROVIDERS: PCP Family Medicine; Visit Provider Internal Medicine
DX: Z23 Encounter for immunization (principal)
CPT/HCPCS: 0011A; 91301

== ENCOUNTER → 2021-02-11 08:54 | Outpatient (CLI) | payer OTHER, SELFPAY ==
--- NOTE | 2021-02-11 09:04 | DIET.PN ---
Dietary Progress Note 60y [address] f/u for help c management of her preDM and help c weight loss. Pts IBS type sx only lasted 3mo then went away. Pt is tolerating a wide variety of foods again. Pt is meal planning every week on Fridays but is not following any specific formula so has had pasta two nights in a row. A1c 5.8 has been having hot flashes x1y but even more over past 3mo wakes her up at night dr recommended coming off metformin which she did 2w ago Usual Day: Breakfast: fried or scrambed egg, guinean ervin, fruit, toast c pb, Sundays: pancakes c SF syrup, sausages Pt has bilateral shoulder pain and bilateral hip pain limiting her ability to exercise but tries to go for a walk daily. RD Impression: Pt is choosing high fat proteins and grain based carbs which are likely aggravating her joint pain and not helping her weight or preDM. Interventions: 1. To support weight loss and good blood sugar management, provided pt c 1400kcal Cardiometabolic food plan and instructed her to make copies to assess her diet and learn to balance her intake. 2. To support healthy meal planning tailored to her health conditions, pt will search recipes that are Mediterranean, DM, or anti-inflammatory and only shop from this plan, limiting pasta meal to once per week. 3. To support healthy movement for weight loss, pt will collaborate c her PT to get exercises which are safe and effective. Pt will call for f/u as needed.
== END ==
PROVIDERS: PCP Family Medicine; Referring Provider Family Medicine; Visit Provider Family Medicine
DX: R73.03 Prediabetes (principal); Z71.3 Dietary counseling and surveillance
CPT/HCPCS: 97803

== ENCOUNTER → 2021-03-06 09:34 | Outpatient (CLI) | payer OTHER, SELFPAY ==
[2021-03-06] MEDS: COVID-19 VACC #2, MRNA(MOD) 100 MCG/0.5 ML VIAL IM (09:42)
== END ==
PROVIDERS: PCP Family Medicine; Visit Provider Internal Medicine
DX: Z23 Encounter for immunization (principal)
CPT/HCPCS: 0012A; 91301

== ENCOUNTER → 2021-03-31 14:51 | Outpatient (CLI) | payer OTHER, SELFPAY ==
[2021-03-31 16:45] LABS: COVID19 -Nasal RAPID Negative (Negative)
== END ==
PROVIDERS: PCP Family Medicine; Visit Provider Student in an Organized Health Care Education/Training Program
DX: Z11.59 Encounter for screening for other viral diseases (principal)
CPT/HCPCS: 87635

== ENCOUNTER → 2021-04-15 10:18 | Outpatient (CLI) | payer OTHER, SELFPAY ==
[2021-04-15 11:09] LABS: Hemoglobin A1C% w Est Avg Glu 6.9 % (4.0-6.0)
[2021-04-15 11:49] LABS: Cholesterol 194 mg/dL (140-199); HDL Cholesterol 38 mg/dL (40-60); LDL Cholesterol Calculated 94 mg/dL (<100); Triglycerides 310 mg/dL (35-150); VLDL Cholesterol Calculated 62 mg/dL (2-30)
== END ==
PROVIDERS: PCP Student in an Organized Health Care Education/Training Program; Referring Provider Student in an Organized Health Care Education/Training Program; Visit Provider Student in an Organized Health Care Education/Training Program
DX: E11.9 Type 2 diabetes mellitus without complications (principal); I10 Essential (primary) hypertension
CPT/HCPCS: 36415; 80061; 83036

== ENCOUNTER → 2021-08-04 09:48 | Outpatient (CLI) | payer OTHER, SELFPAY ==
[2021-08-04 11:15] LABS: Hemoglobin A1C% w Est Avg Glu 6.3 % (4.0-6.0)
[2021-08-04 11:31] LABS: Cholesterol 171 mg/dL (140-199); HDL Cholesterol 37 mg/dL (40-60); LDL Cholesterol Calculated 62 mg/dL (<100); Triglycerides 358 mg/dL (35-150); VLDL Cholesterol Calculated 72 mg/dL (2-30)
== END ==
PROVIDERS: PCP Student in an Organized Health Care Education/Training Program; Referring Provider Student in an Organized Health Care Education/Training Program; Visit Provider Student in an Organized Health Care Education/Training Program
DX: E11.9 Type 2 diabetes mellitus without complications (principal); I10 Essential (primary) hypertension
CPT/HCPCS: 36415; 80061; 83036

== ENCOUNTER → 2021-09-12 12:15 | Outpatient (CLI) | payer OTHER, SELFPAY ==
[2021-09-12 14:12] LABS: BUN Creatinine Ratio 23.4 (6-22); Blood Urea Nitrogen 15 mg/dL (7-17); Calcium 9.7 mg/dL (8.4-10.2); Carbon Dioxide 25 mmol/L (22-32); Chloride 107 mmol/L (98-107); Estimated Glomerular Filt Rate > 60.0 mL/min (>60); Glucose 101 mg/dL (80-110); HEMOLYSIS < 15 (0-50); Potassium 4.1 mmol/L (3.4-5.1); Sodium 142 mmol/L (137-145)
== END ==
PROVIDERS: PCP Internal Medicine; Referring Provider Internal Medicine; Visit Provider Internal Medicine
DX: I10 Essential (primary) hypertension (principal)
CPT/HCPCS: 36415; 80048

== ENCOUNTER → 2021-11-18 08:15 | Outpatient (CLI) | payer OTHER, SELFPAY ==
[2021-11-18 08:59] LABS: Hemoglobin A1C% w Est Avg Glu 6.7 % (4.0-6.0)
[2021-11-18 09:26] LABS: BUN Creatinine Ratio 19.3 (6-22); Blood Urea Nitrogen 11 mg/dL (7-17); Calcium 9.7 mg/dL (8.4-10.2); Carbon Dioxide 27 mmol/L (22-32); Chloride 108 mmol/L (98-107); Cholesterol 153 mg/dL (140-199); Estimated Glomerular Filt Rate > 60.0 mL/min (>60); Glucose 132 mg/dL (80-110); HDL Cholesterol 36 mg/dL (40-60); HEMOLYSIS < 15 (0-50); LDL Cholesterol Calculated 57 mg/dL (<100); Sodium 140 mmol/L (137-145); Triglycerides 298 mg/dL (35-150)
== END ==
PROVIDERS: PCP Internal Medicine; Referring Provider Internal Medicine; Visit Provider Internal Medicine
DX: I10 Essential (primary) hypertension (principal); E11.9 Type 2 diabetes mellitus without complications; E78.5 Hyperlipidemia, unspecified
CPT/HCPCS: 36415; 80048; 80061; 83036

== ENCOUNTER 2021-12-06 11:25 | Emergency (ER) | payer OTHER, SELFPAY ==
[2021-12-06 11:28] VITALS: BP 141/79; PULSE 83; RESP 18; TEMP 36.1; O2SAT 99; BMI 36.3
[2021-12-06] MEDS: HYDROMORPHONE 1 MG INJ IM (11:46)
--- NOTE | 2021-12-06 12:36 | DI.CT.S_ITS ---
PROCEDURE: CT ABDOMEN PELVIS WO CON INDICATIONS: Left flank pain, hematuria TECHNIQUE: Axial sections were acquired from the lung bases to the pubic symphysis. Coronal and sagittal reformats were performed. For radiation dose reduction, the following was used: automated exposure control, adjustment of mA and/or kV according to patient size. COMPARISON: [facility], CT, CT ABDOMEN PELVIS W CON, 01/10/2019, 13:47. [facility], CT, CT KIDNEY URETER BLADDER (KUB), 12/24/2018, 22:31. [facility], CT, CT KIDNEY URETER BLADDER (KUB), 11/04/2020, 15:24. FINDINGS: Image quality: Excellent. Lung bases: Unremarkable. Heart: No significant findings. URINARY: Right Kidney: There is no hydronephrosis. A nonobstructing 1-2 mm right-sided kidney stone can be seen, as on series 3 image 41. Right Ureter: No hydroureter. Left Kidney: There is moderate left-sided hydronephrosis. No nonobstructing left-sided kidney stones are seen. Along the lateral aspect of the left kidney there is a simple cyst seen that measures 3.2 cm. Left Ureter: There is moderate proximal hydroureter seen, which leads down to obstructing stone within the left proximal ureter that measures to 3 mm, as series 3, image 44. Bladder: Normal wall thickness. No stones. ABDOMEN: Liver: Diffuse fatty liver infiltration is noted. Gallbladder: Unremarkable. Biliary ducts: Unremarkable. Pancreas: Unremarkable. Spleen: Unremarkable. Adrenal Glands: Mild generalized thickening is seen of the adrenal gland, without focal nodules is seen on either side. Stomach and Bowel: Stomach, small bowel loops, and colon are unremarkable. Peritoneum: No abnormal intraperitoneal fluid. No free air. Ventral Wall: A mild periumbilical hernia is seen, containing fat. Abdominal Nodes: No enlarged retroperitoneal or mesenteric lymph nodes. Vessels: Aorta and inferior vena cava are normal in size. PELVIS: Pelvic Organs: The uterus appears normal for age. No adnexal masses are seen. Pelvic Nodes: Unremarkable. Miscellaneous: Bilateral fat containing inguinal hernias are seen, right larger than left. Bones: Focal L4-L5 degenerative change is seen. Milder degenerative changes are seen elsewhere. IMPRESSION: 2-3 mm obstructing stone within the left proximal ureter. There is associated left-sided hydroureter and hydronephrosis. 1-2 mm nonobstructing right-sided kidney stone. Incidental note is made of: Fatty liver infiltration Generalized thickening of the left adrenal gland Fat containing periumbilical hernia Bilateral fat containing inguinal hernias Focal L4-L5 degenerative change Dictated by: Todd Eduardo M.D. on 12/06/2021 at 12:09 Approved by: Todd Eduardo M.D. on 12/06/2021 at 12:14
--- NOTE | 2021-12-06 12:37 | ED_ITS ---
HPI - Female Genitourinary <Reinaldo Wyman PA-C - Last Filed: 12/06/21 16:34> General Chief complaint: Urogenital-Female Stated complaint: kidney stone Time Seen by Provider: 12/06/21 11:40 Source: patient Mode of arrival: Ambulatory History of Present Illness HPI Narrative: Patient is a 61-year-old female with history of kidney stones presenting to the emergency department today for evaluation of left flank pain. Patient states that she began to experience left-sided pain at approximately 10:30 a.m. this mo rning. She states that she had taken [place] and ibuprofen at home shortly after pain began without any relief in her symptoms. Of note, patient states that she has had kidney stones in the past with some of which requiring lithotripsy. She denies fever, chills, chest pain, cough, shortness of breath, nausea, vomiting, diarrhea, dysuria, hematuria, or any other concerning symptoms. No further co ncerns were voiced at this time Related Data Home Medications Medication Instructions Recorded Confirmed lisinopril 10 mg tablet 10 mg PO DAILY 07/26/18 11/02/20 metformin 500 mg tablet 500 mg PO BID 02/08/19 11/02/20 sertraline 25 mg tablet (Zoloft) 12.5 mg PO DAILY tab 01/31/20 11/02/20 magnesium PO 11/02/20 11/02/20 oxybutynin chloride 10 mg 10 mg PO DAILY 11/18/20 tablet,extended release 24 hr Previous Rx's Medication Instructions Recorded adjuvant AS01B (PF)vial 1 of 2 0.5 ml IM ONCE #0.5 ml 07/26/18 (Shingrix Adjuvant Component-PF) atorvastatin 20 mg tablet 20 mg PO DAILY #90 tab 07/26/18 omeprazole 20 mg capsule,delayed 20 mg PO DAILY #90 cap 07/26/18 release zolpidem 6.25 mg tablet,extended 6.25 mg PO BEDTIME PRN #90 tab 07/26/18 release,multiphase metoprolol tartrate 50 mg tablet 50 mg PO BID #180 tab 06/20/19 phenazopyridine 200 mg tablet 200 mg PO TID PRN #6 tab 11/04/20 ondansetron HCl 4 mg tablet 4 mg PO Q6H PRN #30 tab 12/06/21 (Zofran) oxycodone 5 mg tablet 5 mg PO BID PRN #20 tab 12/06/21 Allergies Allergy/AdvReac Type Severity Reaction Status Date / Time No Known Drug Allergies Allergy Verified 12/06/21 11:32 Review of Systems <Reinaldo Wyman PA-C - Last Filed: 12/06/21 16:34> Constitutional Constitutional: Denies chills, Denies fatigue, Denies fever(s), Denies frequent falls, Denies lethargy and Denies weakness Eyes Eyes: Denies loss of vision ENT Ears, Nose, Mouth, and Throat: Denies dizziness and Denies neck pain Cardiovascular Cardiovascular: Denies chest pain, Denies irregular heart rhythm, Denies lightheadedness, Denies palpitations, Denies dyspnea, Denies dyspnea on exertion and Denies orthopnea Respiratory Respiratory: Denies cough, Denies dyspnea, Denies dyspnea on exertion and Denies wheezing Gastrointestinal Gastrointestinal: Denies abdominal pain, Denies change in bowel habits, Denies diarrhea, Denies nausea and Denies vomiting Genitourinary Genitourinary: Denies hematuria, Reports flank pain (Left flank pain), Denies urinary incontinence and Denies urinary urgency Musculoskeletal Musculoskeletal: Denies back pain, Denies muscle weakness, Denies neck pain, Denies numbness and Denies tingling Integumentary/Breasts Skin/Breast: Denies pruritus, Denies erythema, Denies rash and Denies wounds Neurologic Neurologic: Denies behavioral changes, Denies confusion, Denies dizziness, Denies frequent falls, Denies loss of vision, Denies numbness, Denies tingling and Denies weakness Psychiatric Psychiatric: Denies behavioral changes and Denies confusion Endocrine Endocrine: Denies fatigue and Denies palpitations Allergic/Immunologic Allergic/Immunologic: Denies wheezing Patient History <Reinaldo Wyman PA-C - Last Filed: 12/06/21 16:34> Medical History Ankle pain (2014) Anxiety (2004) Chicken pox (~1963) Chickenpox Colon polyps (2018) DM type 2 (diabetes mellitus, type 2) Foot pain (2017) GERD (gastroesophageal reflux disease) (2013) Hypertension (~1997) Kidney stones (~1999) Osteoarthritis (2015) Schatzki's ring (2014) Shingles Surgical History Anesthesia History of ankle surgery (09/2017) Hx of appendectomy (1978) Hx of breast biopsy (1994) Hx of endoscopy (02/2018) Hx of lithotripsy Family History Father Heart disease Hypertension Hyperlipidemia Mental health problem Stroke Mother Hypertension Hyperlipidemia Sister Mental health problem alcohol intake frequency: 0-2 drinks per day Substance Use Type: does not use Exam <Reinaldo Wyman PA-C - Last Filed: 12/06/21 16:34> Narrative Exam Narrative: GENERAL: 61 year old patient appears stated age. Well-developed patient, in mild distress. HEAD: Atraumatic. Normocephalic. EYES: Pupils equal round and reactive. Extraocular motions intact. No scleral icterus. No injection or drainage. ENT: Nose without bleeding, purulent drainage. Throat without erythema, tonsillar hypertrophy or exudate. Airway patent. NECK: Trachea midline. Non tender CARDIOVASCULAR: Regular rate and rhythm without murmurs, gallops, or rubs. RESPIRATORY: Clear to auscultation. Breath sounds equal bilaterally. No wheezes, rales, or rhonchi. GASTROINTESTINAL: Abdomen soft, non-tender, nondistended. EXTREMITIES: No edema or joint tenderness. BACK: Nontender without deformity or crepitance. Left flank tenderness. NEURO: AOx3. SKIN: No rash or erythema of visible areas Initial Vital Signs Initial Vital Signs: Vital Signs Temperature 97.0 F L 12/06/21 11:28 Pulse Rate 83 12/06/21 11:28 Respiratory Rate 18 12/06/21 11:28 Blood Pressure 141/79 H 12/06/21 11:28 Pulse Oximetry 99 12/06/21 11:28 <Live Thompson DO - Last Filed: 12/06/21 17:04> Initial Vital Signs Initial Vital Signs: Vital Signs Temperature 97.0 F L 12/06/21 11:28 Pulse Rate 83 12/06/21 11:28 Respiratory Rate 18 12/06/21 11:28 Blood Pressure 141/79 H 12/06/21 11:28 Pulse Oximetry 99 12/06/21 11:28 Course <Reinaldo Wyman PA-C - Last Filed: 12/06/21 16:34> Course Course Narrative: To consider urinary tract infection versus pyelonephritis versus nephrolithiasis versus ureterolithiasis. Urinalysis, CT abdomen pelvis, CMP obtained. 0.5 mg Dilaudid provided in the emergency department. Orders Ordered: ED Orders 12/06/21 12:18 Basic Metabolic Panel Stat 12/06/21 12:26 Urine Microscopic Stat 12/06/21 12:36 CT abdomen pelvis wo con Stat Discontinued Medications Hydromorphone HCl (Hydromorphone 1 Mg Inj) 1 mg IM NOW ONE Stop: 12/06/21 11:41 Last Admin: 12/06/21 11:46 Dose: 1 mg Documented by: WILLIE Vital Signs Vital signs: Vital Signs - 8 hr 12/06/21 11:28 12/06/21 13:50 Temperature 97.0 F L Pulse Rate 83 70 Respiratory Rate 18 14 Blood Pressure 141/79 H 138/78 Pulse Oximetry 99 99 <Live Thompson DO - Last Filed: 12/06/21 17:04> Orders Ordered: ED Orders 12/06/21 12:18 Basic Metabolic Panel Stat 12/06/21 12:26 Urine Microscopic Stat 12/06/21 12:36 CT abdomen pelvis wo con Stat Discontinued Medications Hydromorphone HCl (Hydromorphone 1 Mg Inj) 1 mg IM NOW ONE Stop: 12/06/21 11:41 Last Admin: 12/06/21 11:46 Dose: 1 mg Documented by: WILLIE Vital Signs Vital signs: Vital Signs - 8 hr 12/06/21 11:28 12/06/21 13:50 Temperature 97.0 F L Pulse Rate 83 70 Respiratory Rate 18 14 Blood Pressure 141/79 H 138/78 Pulse Oximetry 99 99 MDM - Female Genitourinary <Reinaldo Wyman PA-C - Last Filed: 12/06/21 16:34> Lab Data Result diagrams: 12/06/21 12:18 Labs: Lab Results 12/06/21 12/06/21 Range/Units 12:18 12:26 Sodium 142 (137-145) mmol/L Potassium 4.6 (3.4-5.1) mmol/L Chloride 107 (98-107) mmol/L Carbon Dioxide 26 (22-32) mmol/L BUN 17 (7-17) mg/dL Creatinine 0.74 (0.52-1.04) mg/dL Estimated GFR > 60.0 (>60) mL/min BUN/Creatinine Ratio 23.0 H (6-22) Glucose 154 H (80-110) mg/dL Calcium 9.8 (8.4-10.2) mg/dL Urine RBC 30-100/hpf H (0-5/HPF) Urine WBC 1-5/hpf (0-5/HPF) Ur Squamous Epith Cells 5-10 /hpf H (0-5/HPF) Urine Bacteria None seen (None) Hyaline Casts 1-5/lpf (None) Urine Mucus 2+ H (Negative) Ur Culture Indicated? Cult not indicated Urine Dip Bedside Urine Glucose Negative Bedside Urine Bilirubin - Negative Bedside Urine Ketone - Negative Urine Specific [place] 1.030 Bedside Urine Occult Blood +++ Bedside Urine pH 5.5 Bedside Urine Protein + 30 Bedside Urine Urobilinogen - Negative Bedside Urine Nitrite - Negative Bedside Urine Leukocytes - Negative Esterase Imaging Data CT scan - abdomen/pelvis: Radiologist's Impression: PROCEDURE:? CT ABDOMEN PELVIS WO CON ? INDICATIONS:? Left flank pain, hematuria ? TECHNIQUE:? Axial sections were acquired from the lung bases to the pubic symphysis.? Coronal and sagittal reformats were performed.? For radiation dose reduction, the following was used: ?automated exposure control, adjustment of mA and/or kV according to patient size.? ? COMPARISON:? [facility], CT, CT ABDOMEN PELVIS W CON, 01/10/2019, 13:47.? [facility], CT, CT KIDNEY URETER BLADDER (KUB), 12/24/2018, 22:31.? [facility], CT, CT KIDNEY URETER BLADDER (KUB), 11/04/2020, 15:24. ? FINDINGS:? Image quality:? Excellent.? ? Lung bases:? Unremarkable.? ? Heart:? No significant findings. ? URINARY: Right Kidney:? There is no hydronephrosis.? A nonobstructing 1-2 mm right-sided kidney stone can be seen, as on series 3 image 41.? Right Ureter:? No hydroureter.? ? Left Kidney:? There is moderate left-sided hydronephrosis.? No nonobstructing left-sided kidney stones are seen.? Along the lateral aspect of the left kidney there is a simple cyst seen that measures 3.2 cm. Left Ureter:? There is moderate proximal hydroureter seen, which leads down to obstructing stone within the left proximal ureter that measures to 3 mm, as series 3, image 44.? ? Bladder:? Normal wall thickness. No stones. ? ? ? ABDOMEN: Liver: Diffuse fatty liver infiltration is noted.? Gallbladder:? Unremarkable.? ? Biliary ducts:? Unremarkable.? ? Pancreas:? Unremarkable.? ? Spleen:? Unremarkable.? ? Adrenal Glands:? Mild generalized thickening is seen of the adrenal gland, without focal nodules is seen on either side. ? Stomach and Bowel:? Stomach, small bowel loops, and colon are unremarkable.? Peritoneum:? No abnormal intraperitoneal fluid.? No free air.? ? Ventral Wall: A mild periumbilical hernia is seen, containing fat. ? Abdominal Nodes:? No enlarged retroperitoneal or mesenteric lymph nodes.? Vessels:? Aorta and inferior vena cava are normal in size.? ? PELVIS: Pelvic Organs: The uterus appears normal for age.? No adnexal masses are seen.? Pelvic Nodes: Unremarkable. Miscellaneous:? Bilateral fat containing inguinal hernias are seen, right larger than left. ? Bones:? Focal L4-L5 degenerative change is seen.? Milder degenerative changes are seen elsewhere. ? IMPRESSION:? ? 2-3 mm obstructing stone within the left proximal ureter.? There is associated left-sided hydroureter and hydronephrosis. ? 1-2 mm nonobstructing right-sided kidney stone. ? ? ? Incidental note is made of: Fatty liver infiltration Generalized thickening of the left adrenal gland Fat containing periumbilical hernia Bilateral fat containing inguinal hernias Focal L4-L5 degenerative change ? Dictated by: Todd Eduardo M.D. on 12/06/2021 at 12:09 ? ? Approved by: Todd Eduardo M.D. on 12/06/2021 at 12:14? [facility] Narrative Medical decision making narrative: To consider urinary tract infection versus pyelonephritis versus nephrolithiasis versus ureterolithiasis. Overall physical examination, history, and imaging obtained in the emergency department today reassuring. I discussed the findings noted on CT scan with the patient and informed her that a 2-3 mm stone was noted in the left proximal ureter. Additionally I informed the patient that it does appear to be an obstructing stone, however I a discussed the fact that her labs otherwise appeared normal and it does not appear that her kidneys are greatly impaired. I instructed the patient to remain well hydrated throughout process, and I informed her that I would be providing medications to help alleviate pain and nausea to her preferred pharmacy. Patient expresses understanding and agrees to plan. At this time she states she would like to be discharged. Strict return precautions were discussed with the patient prior to discharge. Patient is stable for discharge at this time. <Live Thompson, - Last Filed: 12/06/21 17:04> Lab Data Labs: Lab Results 12/06/21 12/06/21 Range/Units 12:18 12:26 Sodium 142 (137-145) mmol/L Potassium 4.6 (3.4-5.1) mmol/L Chloride 107 (98-107) mmol/L Carbon Dioxide 26 (22-32) mmol/L BUN 17 (7-17) mg/dL Creatinine 0.74 (0.52-1.04) mg/dL Estimated GFR > 60.0 (>60) mL/min BUN/Creatinine Ratio 23.0 H (6-22) Glucose 154 H (80-110) mg/dL Calcium 9.8 (8.4-10.2) mg/dL Urine RBC 30-100/hpf H (0-5/HPF) Urine WBC 1-5/hpf (0-5/HPF) Ur Squamous Epith Cells 5-10 /hpf H (0-5/HPF) Urine Bacteria None seen (None) Hyaline Casts 1-5/lpf (None) Urine Mucus 2+ H (Negative) Ur Culture Indicated? Cult not indicated Urine Dip Bedside Urine Glucose Negative Bedside Urine Bilirubin - Negative Bedside Urine Ketone - Negative Urine Specific [place] 1.030 Bedside Urine Occult Blood +++ Bedside Urine pH 5.5 Bedside Urine Protein + 30 Bedside Urine Urobilinogen - Negative Bedside Urine Nitrite - Negative Bedside Urine Leukocytes - Negative Esterase Discharge Plan Departure Patient Disposition: Home Clinical Impression: Ureterolithiasis, Flank pain Instructions: DI for Kidney Stones Activity Restrictions/Additional Instructions: *You have been diagnosed with ureterolithiasis, flank pain *What to do: *Please continue to take your regular medications as directed. [X] New medication prescriptions sent to your pharmacy: [facility] - Zofran, Oxycodone [ ] New medication written as a paper prescription [ ] No new medications given *Please follow up with your primary care provider in 2-3 days, call for an appointment. Let them know you were seen in the Emergency Department and that we ask that you be seen in follow up. We will electronically transmit a record of today's note if your PCP is in our system *If you do not have a primary care provider please contact the [facility] Resource line at [phone]. They will ask some questions about your medical history and help get you set up with a doctor in the community. *Return to Emergency Department if you should have any new, worsening or concerning symptoms, such as fever greater than 101 F, shaking chills, worsening pain, persistent vomiting or other bothersome symptoms Prescriptions: New ondansetron HCl [Zofran] 4 mg tablet 4 mg PO Q6H PRN (Reason: nausea and vomiting) Qty: 30 0RF oxycodone 5 mg tablet 5 mg PO BID PRN (Reason: pain) Qty: 20 0RF No Action lisinopril 10 mg tablet 10 mg PO DAILY 0RF adjuvant AS01B (PF)vial 1 of 2 [Shingrix Adjuvant Component-PF] suspension 0.5 ml IM ONCE Qty: 0.5 0RF atorvastatin 20 mg tablet 20 mg PO DAILY Qty: 90 1RF zolpidem 6.25 mg tablet,ext release multiphase 6.25 mg PO BEDTIME PRN (Reason: insomnia) Qty: 90 0RF omeprazole 20 mg capsule,delayed release(DR/EC) 20 mg PO DAILY Qty: 90 1RF sertraline [Zoloft] 25 mg tablet 12.5 mg PO DAILY 0RF magnesium PO 0RF metoprolol tartrate 50 mg tablet 50 mg PO BID Qty: 180 1RF phenazopyridine 200 mg tablet 200 mg PO TID PRN (Reason: pain) Qty: 6 0RF oxybutynin chloride 10 mg tablet extended release 24hr 10 mg PO DAILY 0RF metformin 500 mg tablet 500 mg PO BID 0RF Referrals: Arturo Mijares MD [Primary Care Provider] - <Live Thompson DO - Last Filed: 12/06/21 17:04> Cosign ED Attending Cosdarleneature Attestation: Dr Thompson Co-Sign Statement: I was available for consultation during this patient's emergency department visit. This chart is signed by myself for administrative purposes only. I did not have direct contact with this patient during this visit. They were seen independently by the APC.
[2021-12-06 12:58] LABS: Blood Urea Nitrogen 17 mg/dL (7-17); Calcium 9.8 mg/dL (8.4-10.2); Carbon Dioxide 26 mmol/L (22-32); Chloride 107 mmol/L (98-107); Estimated Glomerular Filt Rate > 60.0 mL/min (>60); Glucose 154 mg/dL (80-110); HEMOLYSIS < 15 (0-50); Potassium 4.6 mmol/L (3.4-5.1); Sodium 142 mmol/L (137-145)
[2021-12-06 13:29] LABS: Bacteria Urine None Seen; RBC Urine 30-100/HPF (0-5/HPF); Squamous Epithelial Cell Urine 5-10 /HPF (0-5/HPF); WBC Urine 1-5/HPF (0-5/HPF)
[2021-12-06 13:30] LABS: Culture Indicated Urine Cult Not Indicated; Hyaline Casts Urine 1-5/LPF; Mucus Urine 2+ (Negative)
[2021-12-06 13:50] VITALS: BP 138/78; PULSE 70; RESP 14; O2SAT 99
== END 2021-12-06 13:51 | disposition home or self-care (01) ==
PROVIDERS: Emergency Medicine; Emergency Provider Physician Assistant; PCP Internal Medicine
DX: N20.1 Calculus of ureter (principal)
CPT/HCPCS: 36415; 74176; 80048; 81003; 81015; 96372; 99284; J1170

== ENCOUNTER → 2021-12-19 13:56 | Outpatient (CLI) | payer OTHER, SELFPAY | PROVIDERS: PCP Internal Medicine; Visit Provider Nurse Practitioner Family | DX: R30.0 Dysuria (principal); R30.1 Vesical tenesmus | CPT/HCPCS: 87086 ==

== ENCOUNTER → 2022-03-25 08:06 | Outpatient (CLI) | payer OTHER, SELFPAY ==
[2022-03-25 09:09] LABS: Add Manual Diff / Slide Review NO; Basophils Absolute Auto 100 /uL (0-100); Basophils Percent Auto 0.8 % (0-2); Eosinophils Absolute Auto 100 /uL (0-450); Eosinophils Percent Auto 2.2 % (2-4); Hematocrit 38.5 % (36-46); Hemoglobin 13.3 g/dL (12.0-16.0); Lymphocytes Absolute Auto 2900 /uL (1100-4500); Lymphocytes Percent Auto 43.2 % (25-40); Mean Corpuscular HGB Conc 34.5 % (30-36); Mean Corpuscular Hemoglobin 29.8 PG (26-34); Mean Corpuscular Volume 86.4 fL (80-100); Monocytes Absolute Auto 400 /uL (0-900); Monocytes Percent Auto 6.4 % (3-14); Neutrophils Absolute Auto 3200 /uL (1500-7000); Neutrophils Percent Auto 47.4 % (50-75); Platelet Count 261 X10^3/uL (150-400); Red Blood Cell Count 4.46 X10^6/uL (4.0-5.2); Red Cell Distribution Width 13.2 % (11.6-14.8); White Blood Cell Count 6.7 X10^3/uL (4.5-11.0)
[2022-03-25 09:54] LABS: Alanine Aminotransferase 28 IU/L (<35); Albumin 4.2 g/dL (3.5-5.0); Albumin Globulin Ratio 1.5 (1.0-2.8); Alkaline Phosphatase 110 U/L (38-126); Aspartate Aminotransferase 24 IU/L (14-36); BUN Creatinine Ratio 19.4 (6-22); Bilirubin Total 0.8 mg/dL (0.2-1.3); Blood Urea Nitrogen 12 mg/dL (7-17); Calcium 9.1 mg/dL (8.4-10.2); Carbon Dioxide 25 mmol/L (22-32); Chloride 110 mmol/L (98-107); Cholesterol 170 mg/dL (140-199); Estimated Glomerular Filt Rate > 60 mL/min (>60); Globulin 2.8 g/dL (1.7-4.1); Glucose 144 mg/dL (80-110); HDL Cholesterol 36 mg/dL (40-60); HEMOLYSIS < 15 (0-50); LDL Cholesterol Calculated 81 mg/dL (<100); Potassium 3.9 mmol/L (3.4-5.1); Sodium 142 mmol/L (137-145); Triglycerides 266 mg/dL (35-150)
[2022-03-25 10:18] LABS: Ferritin 71 ng/mL (11-264)
== END ==
PROVIDERS: PCP Internal Medicine; Referring Provider Naturopath; Visit Provider Naturopath
DX: Z00.00 Encounter for general adult medical examination without abnormal findings (principal); E11.9 Type 2 diabetes mellitus without complications; E78.49 Other hyperlipidemia
CPT/HCPCS: 36415; 80053; 80061; 82728; 83036; 85025

== ENCOUNTER → 2022-06-13 09:31 | Outpatient (CLI) | payer OTHER, SELFPAY ==
[2022-06-13 10:26] LABS: Cholesterol 182 mg/dL (140-199); HDL Cholesterol 36 mg/dL (40-60); LDL Cholesterol Calculated 96 mg/dL (<100); Triglycerides 252 mg/dL (35-150)
[2022-06-13 10:27] LABS: Hemoglobin A1C% w Est Avg Glu 6.4 % (4.0-6.0)
== END ==
PROVIDERS: PCP Internal Medicine; Referring Provider Internal Medicine; Visit Provider Internal Medicine
DX: E11.9 Type 2 diabetes mellitus without complications (principal)
CPT/HCPCS: 36415; 80061; 83036

== ENCOUNTER → 2022-06-18 11:27 | Outpatient (CLI) | payer OTHER, SELFPAY ==
--- NOTE | 2022-06-18 | DI.MG.S_ITS ---
BILATERAL DIGITAL SCREENING MAMMOGRAM 3D/2D WITH CAD: 06/18/2022 CLINICAL: Routine screening. Comparison is made to exams dated: 12/05/2020 mammogram, 11/28/2019 mammogram, and 11/26/2018 mammogram - [facility]. There are scattered fibroglandular elements in both breasts. Current study was also evaluated with a Computer Aided Detection (CAD) system. There is a possible irregular asymmetry in the left breast at 5 o'clock anterior depth. No other significant masses, calcifications, or other findings are seen in either breast. IMPRESSION: INCOMPLETE: NEEDS ADDITIONAL IMAGING EVALUATION The possible irregular asymmetry in the left breast is indeterminate. Additional views with possible ultrasound are recommended. Based on the Tyrer Cuzick model (a risk assessment model) the patient's lifetime risk is 5.5% and her 10 year risk is 2.5%. According to the ACR, ACS, and NCCN guidelines, an annual breast MRI exam along with mammogram is recommended if the patient's lifetime risk is 20% or greater. This exam was interpreted at Station ID: [id number]. NOTE: For mammograms, a report in lay terms will be sent to the patient. Approximately 15% of breast malignancies will not be visualized mammographically. In the management of a palpable breast mass, a negative mammogram must not discourage biopsy of a clinically suspicious lesion. Electronically Signed By: Fernanda parmar/daphney:06/18/2022 14:51:02 copy to: JOSE LAMAS copy to: Lorene Stevens, ph: [phone], fax: [phone] letter sent: Additional Imaging Needed ACR BI-RADS Category 0: Incomplete 3340F
== END ==
PROVIDERS: PCP Internal Medicine; Referring Provider Internal Medicine; Visit Provider Internal Medicine
DX: Z12.31 Encounter for screening mammogram for malignant neoplasm of breast (principal)
CPT/HCPCS: 77063; 77067

== ENCOUNTER → 2022-07-07 13:29 | Outpatient (CLI) | payer OTHER, SELFPAY ==
--- NOTE | 2022-07-07 | DI.MG.S_ITS ---
UNILATERAL LEFT DIGITAL DIAGNOSTIC MAMMOGRAM 3D/2D WITH ADDITIONAL VIEWS: 07/07/2022 CLINICAL: Additional evaluation requested from prior study. Comparison is made to exams dated: 06/18/2022 mammogram, 12/05/2020 mammogram, and 11/28/2019 mammogram - [facility]. There are scattered fibroglandular elements in left breast. The benign asymmetry in the left breast at 5 o'clock anterior depth is no longer seen. This is not seen in additional views. No other significant masses or calcifications are seen in the breast. IMPRESSION: BENIGN There is no mammographic evidence of malignancy. A 1 year screening mammogram is recommended. Based on the Tyrer Cuzick model (a risk assessment model) the patient's lifetime risk is 5.5% and her 10 year risk is 2.5%. According to the ACR, ACS, and NCCN guidelines, an annual breast MRI exam along with mammogram is recommended if the patient's lifetime risk is 20% or greater. This exam was interpreted at Station ID: [id number]. NOTE: For mammograms, a report in lay terms will be sent to the patient. Approximately 15% of breast malignancies will not be visualized mammographically. In the management of a palpable breast mass, a negative mammogram must not discourage biopsy of a clinically suspicious lesion. Electronically Signed By: Facundo pelaez/daphney:07/07/2022 13:56:35 copy to: JOSE LAMAS copy to: Lorene Stevens, ph: [phone], fax: [phone] letter sent: Normal Exam ACR BI-RADS Category 2: Benign Finding(s) 3342F
== END ==
PROVIDERS: PCP Internal Medicine; Referring Provider Internal Medicine; Visit Provider Internal Medicine
DX: R92.8 Other abnormal and inconclusive findings on diagnostic imaging of breast (principal)
CPT/HCPCS: 77065; G0279

== ENCOUNTER → 2022-10-02 13:19 | Outpatient (CLI) | payer OTHER, SELFPAY ==
[2022-10-02 14:37] LABS: Bilirubin Urine UA NEGATIVE (NEGATIVE); Color Urine UA YELLOW; Glucose Urine UA NEGATIVE (Negative); Ketones Urine UA NEGATIVE (NEGATIVE); Leukocyte Esterase Urine UA TRACE (NEGATIVE); Nitrite Urine UA NEGATIVE (Negative); Occult Blood Urine UA 3+ (Negative); Protein Urine UA NEGATIVE (Negative); Specific Gravity Urine UA 1.025 (1.000-1.035); Urobilinogen Urine UA 0.2 E.U./dL (0.2)
[2022-10-02 14:43] LABS: Appearance Urine UA Slightly Cloudy
[2022-10-02 14:51] LABS: Amorphous Sediment Urine 1+; Bacteria Urine Occasional (0-1); Culture Indicated Urine Specimen Cultured; Mucus Urine 1+ (Negative); RBC Urine 10-30/HPF (0-5/HPF); Squamous Epithelial Cell Urine 1-5 /HPF (0-5/HPF); WBC Urine 5-10/HPF (0-5/HPF)
== END ==
PROVIDERS: PCP Internal Medicine; Referring Provider Registered Nurse; Visit Provider Registered Nurse
DX: R39.9 Unspecified symptoms and signs involving the genitourinary system (principal)
CPT/HCPCS: 81001; 87086

== ENCOUNTER → 2022-10-03 10:02 | Outpatient (CLI) | payer OTHER, SELFPAY | PROVIDERS: PCP Internal Medicine; Visit Provider Physician Assistant | DX: N39.0 Urinary tract infection, site not specified (principal) | CPT/HCPCS: 87086 ==

== ENCOUNTER → 2023-02-22 09:32 | Outpatient (CLI) | payer OTHER, SELFPAY | PROVIDERS: PCP Internal Medicine; Visit Provider Physician Assistant | DX: N39.0 Urinary tract infection, site not specified (principal) | CPT/HCPCS: 87086 ==

== ENCOUNTER → 2023-03-02 12:30 | Outpatient (CLI) | payer OTHER, SELFPAY ==
[2023-03-03 04:35] LABS: Labcorp Hemoglobin (Hb) A1c 6.2 % (4.8-5.6)
== END ==
PROVIDERS: PCP Internal Medicine; Referring Provider Internal Medicine; Visit Provider Internal Medicine
DX: E11.69 Type 2 diabetes mellitus with other specified complication (principal)
CPT/HCPCS: 36415; 83036

== ENCOUNTER → 2023-03-05 15:07 | Outpatient (CLI) | payer OTHER, SELFPAY ==
--- NOTE | 2023-03-05 15:08 | DI.RAD.S_ITS ---
PROCEDURE: XR KUB INDICATIONS: history of kidney stones TECHNIQUE: One view of the abdomen acquired. COMPARISON: [facility], CR, XR KUB, 11/02/2020, 11:42. FINDINGS: Surgical changes and devices: None. Bowel: Bowel gas pattern is normal. Soft tissues: Faint calcifications are noted projecting in the region of right kidney measures 2-3 mm in size . No definite left-sided renal calcification is seen. Visualized solid organ contours appear normal in size. Bones: No suspicious bony lesions. IMPRESSION: Suggestion of tiny right renal calculi. No gross left renal calculi. No gross free air. Dictated by: Prateek Jacobo M.D. on 03/05/2023 at 16:03 Approved by: Prateek Jacobo M.D. on 03/05/2023 at 16:04
== END ==
PROVIDERS: PCP Internal Medicine; Referring Provider Specialist; Visit Provider Specialist
DX: N30.01 Acute cystitis with hematuria (principal); Z87.442 Personal history of urinary calculi
CPT/HCPCS: 74018

== ENCOUNTER → 2023-03-10 12:58 | Outpatient (CLI) | payer OTHER, SELFPAY | PROVIDERS: PCP Internal Medicine; Visit Provider Specialist | DX: N39.0 Urinary tract infection, site not specified (principal); R39.9 Unspecified symptoms and signs involving the genitourinary system; Z87.442 Personal history of urinary calculi | CPT/HCPCS: 51798; 81002; 87086 ==

== ENCOUNTER → 2023-03-12 16:49 | Outpatient (CLI) | payer OTHER, SELFPAY ==
--- NOTE | 2023-03-12 17:01 | DI.CT.S_ITS ---
PROCEDURE: CT KIDNEY URETER BLADDER (KUB) INDICATIONS: history of kidney stones TECHNIQUE: Axial sections were acquired from the lung bases to the pubic symphysis. Coronal and sagittal reformats were performed. For radiation dose reduction, the following was used: automated exposure control, adjustment of mA and/or kV according to patient size. COMPARISON: [facility], CT, CT ABDOMEN PELVIS WO CON, 12/06/2021, 12:41. [facility], CT, CT KIDNEY URETER BLADDER (KUB), 11/04/2020, 15:24. [facility], CR, XR KUB, 03/05/2023, 15:06. FINDINGS: Image quality: Good for Lower chest: Small hiatal hernia. Heart size is normal. Lung bases are unremarkable. Solid organs: Liver is unremarkable on noncontrast evaluation. Gallbladder is unremarkable. No pathologic dilation of the biliary tree or pancreatic duct. No splenomegaly. No adrenal nodules. There is a left renal cyst. No discrete intrarenal stone. Mildly hyperdense renal calices could represent milk of calcium deposits. Mild left hydronephrosis is present. There is a 2 mm stone at the left UVJ. Vessels and lymph nodes: No abdominal aortic aneurysm or pathologic adenopathy by size criteria. Bowel and peritoneum: No evidence of small bowel obstruction. No pathologic ascites or drainable abscess. Body wall: Unremarkable. Tiny fat containing umbilical hernia. Pelvis: Bladder is under distended, making evaluation difficult. Reproductive organs are not well evaluated on noncontrast CT, consider ultrasound there is pelvic pathology concern. Bones: No acute or suspicious osseous finding. There are degenerative changes. IMPRESSION: 1-2 mm left UVJ stone with mild left hydronephrosis. Suspected milk of calcium deposits in both kidneys, without discrete intrarenal calculi. Dictated by: Beck Seals M.D. on 03/12/2023 at 20:59 Approved by: Beck Seals M.D. on 03/12/2023 at 21:07
== END ==
PROVIDERS: PCP Internal Medicine; Referring Provider Specialist; Visit Provider Specialist
DX: N13.2 Hydronephrosis with renal and ureteral calculous obstruction (principal); R39.9 Unspecified symptoms and signs involving the genitourinary system; Z87.442 Personal history of urinary calculi
CPT/HCPCS: 74176

== ENCOUNTER → 2023-04-05 08:08 | Outpatient (CLI) | payer OTHER, SELFPAY ==
[2023-04-05 08:59] LABS: Calcium 9.1 mg/dL (8.4-10.2); Uric Acid 3.3 mg/dL (2.5-6.2)
[2023-04-05 09:25] LABS: Alanine Aminotransferase 22 IU/L (<35); Albumin 3.8 g/dL (3.5-5.0); Albumin Globulin Ratio 1.5 (1.0-2.8); Alkaline Phosphatase 115 U/L (38-126); Aspartate Aminotransferase 22 IU/L (14-36); Bilirubin Total 0.8 mg/dL (0.2-1.3); Blood Urea Nitrogen 13 mg/dL (7-17); Calcium 9.3 mg/dL (8.4-10.2); Carbon Dioxide 25 mmol/L (22-32); Chloride 108 mmol/L (98-107); Cholesterol 167 mg/dL (140-199); Estimated Glomerular Filt Rate > 60 mL/min (>60); Globulin 2.6 g/dL (1.7-4.1); Glucose 113 mg/dL (80-110); HDL Cholesterol 34 mg/dL (40-60); HEMOLYSIS < 15 (0-50); LDL Cholesterol Calculated 73 mg/dL (<100); Potassium 4.1 mmol/L (3.4-5.1); Sodium 140 mmol/L (137-145); Total Protein 6.4 g/dL (6.3-8.2); Triglycerides 298 mg/dL (35-150)
[2023-04-05 12:04] LABS: Creatinine Urine Random 157.3 mg/dL
[2023-04-05 12:08] LABS: Microalbumi Creatinin Ratio Ur 5.7 ug/mg CR (<30); Microalbumin Urine Random 0.9 mg/dL (0-1.6)
[2023-04-07 08:31] LABS: Parathyroid Hormone Int 18 pg/mL (15-65)
== END ==
PROVIDERS: Specialist; PCP Internal Medicine; Referring Provider Family Medicine; Visit Provider Family Medicine
DX: E11.9 Type 2 diabetes mellitus without complications (principal); Z87.442 Personal history of urinary calculi; I10 Essential (primary) hypertension; F41.9 Anxiety disorder, unspecified
CPT/HCPCS: 36415; 80053; 80061; 82043; 82310; 82570; 83970; 84550

== ENCOUNTER → 2023-04-26 13:26 | Outpatient (CLI) | payer OTHER, SELFPAY | PROVIDERS: PCP Family Medicine; Visit Provider Specialist | DX: N20.0 Calculus of kidney (principal); R39.9 Unspecified symptoms and signs involving the genitourinary system; Z87.442 Personal history of urinary calculi | CPT/HCPCS: 81002; 87086 ==

== ENCOUNTER → 2023-05-26 09:43 | Outpatient (CLI) | payer BC, SELFPAY ==
[2023-05-26 11:49] LABS: BUN Creatinine Ratio 20.9 (6-22); Blood Urea Nitrogen 14 mg/dL (7-17); Calcium 9.7 mg/dL (8.4-10.2); Carbon Dioxide 28 mmol/L (22-32); Chloride 105 mmol/L (98-107); Estimated Glomerular Filt Rate > 60 mL/min (>60); Glucose 121 mg/dL (80-110); HEMOLYSIS < 15 (0-50); Sodium 139 mmol/L (137-145)
[2023-05-26 11:56] LABS: Potassium 5.6 mmol/L (3.4-5.1)
== END ==
PROVIDERS: PCP Family Medicine; Referring Provider Internal Medicine; Visit Provider Internal Medicine
DX: N20.0 Calculus of kidney (principal)
CPT/HCPCS: 36415; 80048

== ENCOUNTER → 2023-06-04 12:39 | Outpatient (CLI) | payer BC, SELFPAY ==
[2023-06-04 13:47] LABS: BUN Creatinine Ratio 24.2 (6-22); Blood Urea Nitrogen 15 mg/dL (7-17); Calcium 9.5 mg/dL (8.4-10.2); Carbon Dioxide 30 mmol/L (22-32); Chloride 103 mmol/L (98-107); Estimated Glomerular Filt Rate > 60 mL/min (>60); Glucose 122 mg/dL (80-110); HEMOLYSIS < 15 (0-50); Potassium 4.4 mmol/L (3.4-5.1); Sodium 141 mmol/L (137-145)
== END ==
PROVIDERS: PCP Family Medicine; Referring Provider Internal Medicine; Visit Provider Internal Medicine
DX: E87.5 Hyperkalemia (principal)
CPT/HCPCS: 36415; 80048

== ENCOUNTER → 2023-06-21 09:15 | Outpatient (CLI) | payer BC, SELFPAY ==
--- NOTE | 2023-06-21 | DI.MG.S_ITS ---
BILATERAL DIGITAL SCREENING MAMMOGRAM 3D/2D WITH CAD: 06/21/2023 CLINICAL: Routine screening. Comparison is made to exams dated: 06/18/2022 mammogram, 12/05/2020 mammogram, and 11/28/2019 mammogram - [facility]. There are scattered areas of fibroglandular density in both breasts (category b / 25%-50% glandular tissue). Current study was also evaluated with a Computer Aided Detection (CAD) system. No significant masses, calcifications, or other findings are seen in either breast. There has been no significant interval change. IMPRESSION: NEGATIVE There is no mammographic evidence of malignancy. A 1 year screening mammogram is recommended. Based on the Tyrer Cuzick model (a risk assessment model) the patient's lifetime risk is 5.3% and her 10 year risk is 2.4%. According to the ACR, ACS, and NCCN guidelines, an annual breast MRI exam along with mammogram is recommended if the patient's lifetime risk is 20% or greater. This exam was interpreted at Station ID: [id number]. NOTE: For mammograms, a report in lay terms will be sent to the patient. Approximately 15% of breast malignancies will not be visualized mammographically. In the management of a palpable breast mass, a negative mammogram must not discourage biopsy of a clinically suspicious lesion. Electronically Signed By: Anat salvador/daphney:06/21/2023 12:16:47 copy to: JOSE LAMAS copy to: Lorene Stevens, ph: [phone], fax: [phone] letter sent: Normal Exam ACR BI-RADS Category 1: Negative 3341F
== END ==
PROVIDERS: PCP Family Medicine; Referring Provider Internal Medicine; Visit Provider Internal Medicine
DX: Z12.31 Encounter for screening mammogram for malignant neoplasm of breast (principal)
CPT/HCPCS: 77063; 77067

== ENCOUNTER → 2023-07-05 09:00 | Outpatient (CLI) | payer BC, SELFPAY ==
--- NOTE | 2023-07-05 09:01 | DI.RAD.S_ITS ---
PROCEDURE: XR KUB INDICATIONS: calculus of kidney TECHNIQUE: One view of the abdomen acquired. COMPARISON: [facility], CR, XR KUB, 03/05/2023, 15:06. FINDINGS: Surgical changes and devices: None. Bowel: Bowel gas pattern is normal. Soft tissues: No definite renal calcifications are seen. No suspicious abdominal calcifications. Visualized solid organ contours appear normal in size. Bones: No suspicious bony lesions. IMPRESSION: No radiographic evidence of nephrolithiasis. Dictated by: Jaky Marks M.D. on 07/05/2023 at 13:59 Approved by: Jaky Marks M.D. on 07/05/2023 at 14:08
== END ==
PROVIDERS: PCP Family Medicine; Referring Provider Specialist; Visit Provider Specialist
DX: N20.0 Calculus of kidney (principal)
CPT/HCPCS: 74018

== ENCOUNTER → 2023-09-17 14:13 | Outpatient (CLI) | payer MEDICARE, SELFPAY ==
--- NOTE | 2023-09-17 14:14 | DI.RAD.S_ITS ---
Bone Density Report Name: SHARIF HUNTER Age: 63 Sex: Female Ethnicity: White Date of : 1960 Indication: postmenopausal; screening for osteoporosis; Referring Provider: CASA RAINEY Study: Bone densitometry was performed. Exam Date: September 17, 2023 Accession number: [id number] Bone Density: Region BMD T-score Z-score Classification AP Spine(L1-L4) 1.164 1.1 2.8 Normal Femoral Neck (Left) 0.761 -0.8 0.7 Normal Total Hip (Left) 0.904 -0.3 0.9 Normal Femoral Neck (Right) 0.721 -1.2 0.4 Osteopenia Total Hip (Right) 0.857 -0.7 0.5 Normal Total Hip Mean 0.881 -0.5 0.7 Normal World Health Organization criteria for BMD impression classify patients as: Normal (T-score at or above -1.0), Osteopenia (T-score between -1.0 and -2.5), or Osteoporosis (T-score at or below -2.5). 10-year Fracture Risk(1): Major Osteoporotic Fracture 7.6% Hip Fracture 0.6% Reported Risk Factors: [place] (), Neck BMD=0.721, BMI=33.9 (1) FRAX(R) Version 3.08. Fracture probability calculated for an untreated patient. Fracture probability may be lower if the patient has received treatment. Impression: The patient has low bone mass, based on the Right Femoral Neck T-score. The patient has an estimated ten-year risk of hip fracture of 0.6% and an estimated ten-year risk of major fracture of 7.6%, based on the WHO FRAX algorithm. Discussion: BONE DENSITY IS LOW AT ONE OR MORE SKELETAL SITES. This patient's lowest T-score is low at one or more skeletal sites. It meets the World Health Organization's (WHO) criteria for low bone mass (T-score between -1.0 and -2.5). The patient's 10-year risk of fracture as calculated by FRAX is less than the threshold where pharmacological therapy is recommended by the National Osteoporosis Foundation (NOF). However, all treatment decisions require clinical judgment and consideration of individual patient factors, including patient preferences, comorbidities, previous drug use, risk factors not captured in the FRAX model (e.g., frailty, falls, vitamin D deficiency, increased bone turnover, interval significant decline in bone density) and possible under or overestimation of fracture risk by FRAX. The patient should follow a healthful lifestyle (good nutrition with adequate calcium and vitamin D, and appropriate weight-bearing exercise). Follow-Up: Consider repeating this study in 2 to 3 years to reassess this patient's status, or sooner if there is some new clinical indication. Reported by: SHANNAN AVINA M.D. on 09/17/2023 2:35:00 PM.
== END ==
PROVIDERS: PCP Family Medicine; Referring Provider Family Medicine; Visit Provider Family Medicine
DX: Z78.0 Asymptomatic menopausal state (principal); Z13.820 Encounter for screening for osteoporosis; M85.851 Other specified disorders of bone density and structure, right thigh
CPT/HCPCS: 77080

== ENCOUNTER → 2024-03-18 08:48 | Outpatient (CLI) | payer MEDICARE, SELFPAY ==
--- NOTE | 2024-03-18 08:49 | DI.RAD.S_ITS ---
PROCEDURE: XR HIP W PEL IF DONE AYLSSA MIN 4V INDICATIONS: bilateral hip pain TECHNIQUE: AP pelvis with lateral view(s) of the bilateral hip(s). COMPARISON: None. FINDINGS: Bones: No fractures or dislocations. Pelvic ring appears intact. No suspicious bony lesions. Soft tissues: The visualized bowel gas pattern is normal. No suspicious soft tissue calcifications. IMPRESSION: No acute bony abnormality. Dictated by: Anat Flood M.D. on 03/18/2024 at 20:19 Approved by: Anat Flood M.D. on 03/18/2024 at 20:20
--- NOTE | 2024-03-18 08:49 | DI.RAD.S_ITS ---
PROCEDURE: XR LUMBAR SPINE 2-3V INDICATIONS: bilateral hip pain TECHNIQUE: 3 views of the lumbar spine were acquired. COMPARISON: None. FINDINGS: Bones: 5 [id number] vertebrae are present. Degenerative changes are present including intervertebral disc space narrowing and osteophytosis. These are most severe at T11-T12. There is normal bony alignment. No vertebral body compression fractures. No suspicious bony lesions. Soft tissues: Overlying bowel gas pattern is normal. No suspicious soft tissue calcifications. IMPRESSION: No acute bony abnormality. No compression deformities. Mild degenerative change in the lumbar spine. Moderate degenerative change at T11-T12. Dictated by: Anat Flood M.D. on 03/18/2024 at 20:20 Approved by: Anat Flood M.D. on 03/18/2024 at 20:21
== END ==
PROVIDERS: PCP Family Medicine; Referring Provider Family Medicine; Visit Provider Family Medicine
DX: M47.814 Spondylosis without myelopathy or radiculopathy, thoracic region (principal); M47.816 Spondylosis without myelopathy or radiculopathy, lumbar region; M25.551 Pain in right hip; M25.552 Pain in left hip
CPT/HCPCS: 72100; 73522

== ENCOUNTER → 2024-07-16 10:06 | Outpatient (CLI) | payer MEDICARE, SELFPAY ==
[2024-07-16 11:04] LABS: Influenza A - CEPHEID Flu A NEGATIVE (NEGATIVE); Influenza B - CEPHEID Flu B NEGATIVE (NEGATIVE); Respiratory Syncytial Virus Negative (Negative)
[2024-07-16 12:38] LABS: COVID-19 CEPHEID 4-PLEX PCR Negative (Negative)
== END ==
PROVIDERS: Family Provider Family Medicine; PCP Family Medicine; Visit Provider Physician Assistant Surgical
DX: J02.9 Acute pharyngitis, unspecified (principal)
CPT/HCPCS: 0241U; 87070